=== PATIENT | male | born 1955 | race Caucasian/White ===

== ENCOUNTER 2024-01-25 14:25 | Outpatient (AMB) | payer MEDICARE, OTHER, SELFPAY ==
--- NOTE | 2024-01-25 14:41 | MHC.PC.OV ---
Vital Signs 01/25/24 14:47 Height 5 ft 11.65 in Weight 305 lb 4 oz BMI 41.8 BP 106/62 Blood Pressure Location Rt brachial Position Sitting Respiration 16 Pulse 85 Pulse Source Pulse Oximeter Temp 98.3 F Temp Source Oral Pulse Oximetry (%) 90 L Oxygen Delivery Method Room Air Intake Visit Reasons: ERF, needs referral Intake Note: New patient vist, ER follow up, Referal to neurologist if recommended. Tested positive for lyme last week. Ran out of metformin end of September. [employer] Required: No Allergies No Known Allergies Allergy (Verified 01/25/24 14:42) Medication List - Last Reconciled 01/25/24 by Shahana Rosado PA-C atorvastatin 40 mg PO DAILY doxycycline hyclate 100 mg PO BID lisinopril 10 mg PO DAILY Tobacco use date assessed: 01/25/24 Fall risk assessment: No Falls in past year Last assessed Fall Risk: 01/25/24 Dental Screening Dental Screen Date: 01/25/24 Did you have a dental visit in the last 12 months?: No Did you have a dental problem in the last 6 months where you did not have access to dental care?: No Was dental information given to patient?: Patient declined (has false teeth) HPI ERF, needs referral HPI Details Patient is a 68-year-old male who presents today to reestablish care and for an ER follow up. He was last seen by myself at [facility] in July. He has a significant past medical history of KATHIA on CPAP, left renal cell carcinoma, hypertension, hyperlipidemia and type 2 diabetes. He was recently in the ER on 01/17 with joint pains, numbness and tingling in a new diagnosis of Lyme disease. -he states that he went to the ER because he had an exacerbation of his chronic back pain, right ankle and foot swelling, numbness and tingling. He was noted to have a right foot drop and they did do x-rays and an ultrasound which were negative. He states that he was called on Tuesday and told that he had Lyme disease. He was given 14 days of doxycycline. He has been taking this and does feel like the swelling has gotten better along with some of the numbness and tingling. He still does have some numbness. He states it feels more like he has pins and needles in like the sensation might be coming back. No fevers or chills. No rashes. At the ER they told him his neuropathy symptoms could be related to his back or could be related to diabetes. Musculoskeletal: He has been following with the marketing assistant retail division and trying PT for his back but the pain keeps getting worse. He states that he is worsening despite treatment and called his marketing assistant retail division who told him to continue with physical therapy. He has not sure if he was getting worse because of the Lyme disease or because there something else that is wrong with his back. He gets pain radiating down both legs with increased discomfort in the right leg. It is worsened by sitting, walking and standing for a long time. He takes naproxen if needed. The pain at night does seem to keep him up. No bowel or bladder dysfunction. Endo: Overdue for an A1c. His last A1c was 6.6 and he was on metformin 500 mg daily. He was diagnosed earlier this year. He is out of testing strips. He states that no one at [facility] would refill his medications. He denies any polyuria or polydipsia. When he was checking his glucose without the metformin for the last couple of months it seems that his blood sugars were around 180. He is on an SONIA inhibitor. CV: Follows regularly with cardiology for his hypertension. His blood pressure today in the office is 106/62. States that she wants him to lose weight. At our last visit we did discuss trying Ozempic or Mounjaro. He states that the prior Auth was never done for this medication. Heme-Onc: Follows with Dr. Ware from [facility]. He did have a CT of abdomen and pelvis in May which did not show any evidence of metastatic disease. He does have a partial left nephrectomy as expected. He was also noted to have renal cysts. Last year he had a thyroid nodule which was noted on CT of the ultrasound did show that the thyroid nodule did not require any additional follow up. Colonoscopy: Up-to-date, 2022 [facility] Medical History (Updated 01/26/24 @ 09:01 by Shahana Rosado PA-C) Thyroid nodule Severe obesity Right inguinal hernia Newly diagnosed diabetes Multiple nodules of lung History of malignant neoplasm History of malignant neoplasm of kidney Former smoker Change in bowel habit KATHIA on CPAP Type 2 diabetes, controlled, with neuropathy Dyslipidemia HTN (hypertension) Surgical History (Updated 01/25/24 @ 15:40 by Marie Robles CMA) Hx of hernia repair H/O colonoscopy Social History (Updated 01/25/24 @ 14:46 by Marie Robles CMA) Housing: House Patient Tobacco Use Status: Former Tobacco user Cigarette Packs Per Day: 2 Years Smoked: 40 e-Cigarette/Vaping Use: Never Used service: Yes Current occupational status: retired Cognitive needs: No Hearing needs: Yes (partial hearing loss, tinnitus) Vision needs: No Questionnaire PHQ-9 Over the last 2 weeks, how often have you been bothered by any of the following problems? 1. Little interest or pleasure in doing things: not at all 2. Feeling down, depressed, or hopeless: not at all 3. Trouble falling or staying asleep, or sleeping too much: not at all 4. Feeling tired or having little energy: not at all 5. Poor appetite or overeating: not at all 6. Feeling bad about yourself - or that you are a failure or have let yourself or your family down: not at all 7. Trouble concentrating on things, such as reading the newspaper or watching television: not at all 8. Moving or speaking so slowly that other people could have noticed. Or the opposite - being so fidgety or restless that you have been moving around a lot more than usual: not at all 9. Thoughts that you would be better off or of hurting yourself in some way: not at all Total score: 0 Depression Screening Interpretation: Negative Depression Screening Done: Yes 81437 - PHQ-9 Billing: Yes Source: Developed by Drs. Garrett Marino, Tayla Gallegos, Kirt Rodrigues and colleagues, with an educational diana from [employer]. Thrive Questionnaire Date Thrive assessed: 01/25/24 I am a: Patient What is your living situation today?: I have a steady place to live Within the past 12 months, did the food you bought not last and you didn't have the money to get more?: Never true Within the past 12 months, did you worry whether your food would run out before you got money to buy more?: Never true Do you have trouble paying for medicines?: No Do you have trouble getting transportation to medical appointments?: No Do you have trouble paying your heating and electricity bill?: No Do you have trouble taking care of your child, family member or friend?: No Do you have trouble with day-to-day activities such as bathing, preparing meals, shopping, managing finances, etc.?: No Are you currently unemployed and looking for a job?: No Are you interested in more education?: No Please select the resources that you would like help with: None Currently or been in a relationship where the following occur: No concerns reported THRIVE Score: 0 AUDIT C Alcohol Use Questionnaire (AUDIT-C) 1. How often do you have a drink containing alcohol?: Monthly or less 2. How many drinks containing alcohol do you have on a typical day when you are drinking?: 1 or 2 3. How often do you have six or more drinks on one occasion?: Never Total Score: 1 Score Reviewed/Action Taken: Yes LAYTON-7 AMB Questionnaire LAYTON-7 Date LAYTON - 7 assessed: 01/25/24 Feeling nervous, anxious, or on edge: 0 = Not at all Not being able to stop or control worryin = Not at all Worrying too much about different things: 0 = Not at all Trouble relaxin = Not at all Being so restless that it is hard to sit still: 0 = Not at all Becoming easily annoyed or irritable: 0 = Not at all Feeling afraid as if something awful might happen: 0 = Not at all Total LAYTON-7 score (0-4 normal; 5-9 mild; 10-14 moderate; 15-21 severe): 0 Source: Developed by Drs. Garrett Marino, Tayla Gallegos, Kirt Rodrigues and colleagues, with an educational diana from [employer]. LAYTON-7 Assessment Billing LAYTON-7 Assessment Tool: LAYTON-7 Assessment 81626 Physical exam (Primary Care) Vital Signs: Last Vital Signs Temp 98.3 F 01/25/24 14:47 Pulse 85 01/25/24 14:47 Resp 16 01/25/24 14:47 BP 106/62 01/25/24 14:47 Pulse Ox 90 L 01/25/24 14:47 Oxygen Delivery Method Room Air 01/25/24 14:47 BMI result Body Mass Index 41.8 Tobacco/Smoking Status: Tobacco use Status Tobacco use date assessed 01/25/24 01/25/24 14:46 Patient Tobacco Use Status Former Tobacco user 01/25/24 14:46 e-Cigarette/Vaping Use Never Used 01/25/24 14:46 PHQ-9: PHQ-9 Score PHQ-9: Total score 0 01/25/24 15:43 Depression Screening Interpretation: Negative Thrive Assessment: Date of Thrive Assessment Date Thrive assessed 01/25/24 01/25/24 15:43 Currently or been in a relationship where the following occur: No concerns reported Const Orientation/consciousness: patient oriented x3 HENMT Ears: hearing grossly normal bilaterally and TM's normal bilaterally Neck Neck: Yes no lymphadenopathy Thyroid: Thyroid normal Carotids: no bruits Resp Auscultation: clear to auscultation bilaterally Cardio Rate: regular rate Rhythm: regular rhythm Heart sounds: S1 normal heart sound present and S2 normal heart sound present Peripheral pulses: dorsalis pedis present Back/Spine/Pelvis Thoracic/Lumbar Spine: pain with thoraco-lumbar ROM and paraspinal muscle tenderness Skin General skin exam: no rashes or lesions noted Neuro Other: DTRs on left WNL, absent patellar reflex on right, absent ankle reflex on right, absent vibratory sensation bilaterally to the feet. Diminished monofilament sensation bilaterally. Strength of the right lower extremity when compared to the left is 4/5. 5/5 on the left. Right foot drop noted. DP pulses 1+ bilaterally although some limitation to exam given some soft tissue swelling bilaterally. General: patient oriented x3, gait normal, no focal motor deficits and CN's II-XI intact bilaterally Extrem General: Yes normal to inspection Assessment and Plan Assessment & Plan (1) HTN (hypertension): Code(s): I10 - Essential (primary) hypertension Qualifiers: Hypertension type: primary hypertension Qualified Code(s): I10 - Essential (primary) hypertension Plan: Continue lisinopril. Medication refilled today. (2) Dyslipidemia: Code(s): E78.5 - Hyperlipidemia, unspecified Plan: On atorvastatin 40 mg. We will recheck lipids and LFTs. (3) Type 2 diabetes, controlled, with neuropathy: Code(s): E11.40 - Type 2 diabetes mellitus with diabetic neuropathy, unspecified Plan: Overdue for diabetic labs. Ordered today. We will restart metformin. Testing supplies ordered. We will start patient on Ozempic. He will let me know if there is any issues getting this. We discussed risks, benefits and adverse effects of this medication at length including increased risk of nausea, vomiting, pancreatitis, thyroid malignancy. (4) Lyme disease: Code(s): A69.20 - Lyme disease, unspecified Plan: We will extend treatment for 28 days. He was provided 14 days from the ER. (5) Right foot drop: Code(s): M21.371 - Foot drop, right foot Plan: Reports some improvement of his symptoms. We will monitor and have short term follow up. (6) Lumbar pain with radiation down both legs: Code(s): M54.50 - Low back pain, unspecified; M79.604 - Pain in right leg; M79.605 - Pain in left leg Plan: MRI ordered. We will start patient on a prednisone taper and gabapentin. Discussed risks and benefits and adverse effects of this medication at length. He has not yet tried a steroid but has follow with PT and has gradually worsened and now has neurological changes although likely related to the Lyme disease. (7) Severe obesity: Code(s): E66.01 - Morbid (severe) obesity due to excess calories Plan: We will start Ozempic. Orders: Orders Complete Blood Count Auto Diff 01/25/24 A69.20 - Lyme disease, unspecified, E11.40 - Type 2 diabetes mellitus with diabetic neuropathy, unspecified, E78.5 - Hyperlipidemia, unspecified, G47.33 - Obstructive sleep apnea (adult) (pediatric), I10 - Essential (primary) hypertension, M21.371 - Foot drop, right foot TSH reflex Free T4 01/25/24 E11.40 - Type 2 diabetes mellitus with diabetic neuropathy, unspecified, E78.5 - Hyperlipidemia, unspecified, I10 - Essential (primary) hypertension Microalbumin, Random (w Creat) 01/25/24 E11.40 - Type 2 diabetes mellitus with diabetic neuropathy, unspecified, E78.5 - Hyperlipidemia, unspecified, I10 - Essential (primary) hypertension MR lumbar spine wo con 01/25/24 E11.40 - Type 2 diabetes mellitus with diabetic neuropathy, unspecified, E78.5 - Hyperlipidemia, unspecified, I10 - Essential (primary) hypertension, M54.50 - Low back pain, unspecified, M79.604 - Pain in right leg, M79.605 - Pain in left leg Comprehensive [place]. Panel Fast 01/25/24 A69.20 - Lyme disease, unspecified, E11.40 - Type 2 diabetes mellitus with diabetic neuropathy, unspecified, E78.5 - Hyperlipidemia, unspecified, I10 - Essential (primary) hypertension, M21.371 - Foot drop, right foot Lipid Panel 01/25/24 E11.40 - Type 2 diabetes mellitus with diabetic neuropathy, unspecified, E78.5 - Hyperlipidemia, unspecified, I10 - Essential (primary) hypertension Hemoglobin A1c 01/25/24 E11.40 - Type 2 diabetes mellitus with diabetic neuropathy, unspecified, E78.5 - Hyperlipidemia, unspecified, I10 - Essential (primary) hypertension Vitamin B12 and Folate 01/25/24 E11.40 - Type 2 diabetes mellitus with diabetic neuropathy, unspecified, E78.5 - Hyperlipidemia, unspecified, I10 - Essential (primary) hypertension Medications: New prednisone take 3 tab po x 3 days, take 2 tab po x 3 days, take 1 tab po x 3 days; 18 tabs 0RF lancets (FreeStyle Lancets) Use daily As directed to check blood sugar 100 ea 3RF E11.65 - Type 2 diabetes mellitus with hyperglycemia, Z79.4 - termite treater helper (current) use of insulin doxycycline hyclate for a total of 21 days 100 mg PO BID 7 days 14 caps 0RF doxycycline hyclate to combine with the other rxs of doxy for a total of 28 days 100 mg PO BID 7 days 14 caps 0RF semaglutide (Ozempic) for 4 weeks 0.25 mg (0.368 mL) subcut QWEEK 3 mL 3RF blood sugar diagnostic (FreeStyle Lite Strips) use daily As directed to check blood sugars for diabetes 100 ea 3RF E11.65 - Type 2 diabetes mellitus with hyperglycemia metformin ER 500 mg PO DAILY 90 tabs 3RF gabapentin 300 mg PO BEDTIME 90 caps 1RF Coding Level of Care Code Est Pt Level 5 (51714) Complex EM visit Add On G2211 Diagnoses Primary hypertension I10 Hypertension type: primary hypertension Dyslipidemia E78.5 Type 2 diabetes, controlled, with neuropathy E11.40 Lyme disease A69.20 Right foot drop M21.371 Lumbar pain with radiation down both legs M54.50; M79.604; M79.605 Severe obesity E66.01 Additional Codes LAYTON-7 Assessment Billing - LAYTON-7 Assessment Tool: LAYTON-7 Assessment 33131 ([id number]) Time Spent (min) 85
[2024-01-25 14:47] VITALS: BP 106/62; PULSE 85; RESP 16; TEMP 36.8; O2SAT 90; BMI 41.8
== END 2024-01-25 15:41 | disposition home or self-care (01) ==
PROVIDERS: PCP Physician Assistant; Visit Provider Physician Assistant
DX: I10 Essential (primary) hypertension (principal); E11.40 Type 2 diabetes mellitus with diabetic neuropathy, unspecified; E66.01 Morbid (severe) obesity due to excess calories; Z68.41 Body mass index [BMI] 40.0-44.9, adult; E78.5 Hyperlipidemia, unspecified; M21.371 Foot drop, right foot; A69.20 Lyme disease, unspecified; M54.50 Low back pain, unspecified; M79.604 Pain in right leg; M79.605 Pain in left leg
CPT/HCPCS: 99215; G2211

== ENCOUNTER 2024-02-14 08:26 | Outpatient (REF) | payer MEDICARE, OTHER, SELFPAY ==
[2024-02-14 11:32] LABS: Basophils Percent Auto 0.4 % (0-2); Eosinophils Absolute Auto 0.1 X10*3/uL (0.0-0.4); Eosinophils Percent Auto 1.3 % (0-4); Hematocrit 39.7 % (42.0-52.0); Hemoglobin 13.6 g/dl (14.0-18.0); Imm Gran Abs Auto 0.02 X10*3/uL (0.00-0.03); Imm Gran Pct Auto 0.3 % (0.0-0.4); Lymphocytes Absolute Auto 1.4 X10*3/uL (1.2-4.9); Lymphocytes Percent Auto 19.4 % (20-40); MANUAL DIFF FLAG SCAN; Mean Corpuscular HGB Conc 34.3 g/dl (31.0-36.0); Mean Corpuscular Hemoglobin 30.8 pg (27.0-33.0); Monocytes Absolute Auto 0.7 X10*3/uL (0.1-1.2); Monocytes Percent Auto 10.1 % (2-11); Neutrophils Absolute Auto 4.9 x10*3/uL (2.0-8.3); Neutrophils Percent Auto 68.5 % (45-73); PLT CLUMP 1; Red Blood Count 4.41 X10*6/uL (4.60-5.80); Red Cell Distribution Width 13.7 % (11.0-16.0); SCAN SMEAR FLAG 1
[2024-02-14 11:42] LABS: Estimated Average Glucose 134 mg/dL; Hemoglobin A1c % 6.3 % (<6.0)
[2024-02-14 11:46] LABS: Alanine Aminotransferase 33 U/L (0-40); Albumin Level 4.1 g/dL (3.5-5.0); Alkaline Phosphatase 57 U/L (39-117); Anion Gap 12 (12-20); Aspartate Amino Transferase 22 U/L (5-37); Bilirubin Total 0.6 mg/dL (0.0-1.0); Blood Urea Nitrogen 17 mg/dL (9-16); Calcium 9.9 mg/dL (8.4-10.2); Carbon Dioxide 25 mmol/L (22-29); Chloride 103 mmol/L (96-108); Cholesterol 150 mg/dL (<200); Estimated Glomerular Filt Rate > 60; Glucose Fasting 114 mg/dL (60-99); HDL Cholesterol 30 mg/dL (>40); LDL Cholesterol Calculated 93 mg/dL (<100); Potassium 4.2 mmol/L (3.3-5.1); Sodium 136 mmol/L (135-145); Total Protein 7.2 g/dL (6.5-8.0); Triglycerides 139 mg/dL (<150)
[2024-02-14 12:01] LABS: Platelet Count 140 X10*3/uL (160-400); TSH reflex Free T4 2.07 uIU/mL (0.32-4.0); White Blood Count 7.2 X10*3/uL (4.8-10.8)
[2024-02-14 12:02] LABS: Mean Platelet Volume 11.4 fL (9.4-12.4); SLIDE REVIEW VERIFIED
[2024-02-14 12:02] LABS: Microalbum/Creatinine Ratio Ur 6.3 ug/mg cr (<30)
[2024-02-14 12:14] LABS: Folate 8.9 ng/mL (> or = 4.0); Vitamin B12 294 pg/mL (200-900)
== END 2024-02-14 08:27 | disposition home or self-care (01) ==
LOC: HO.WFDLDS 08:26
PROVIDERS: Visit Provider Physician Assistant
DX: I10 Essential (primary) hypertension (principal); E78.5 Hyperlipidemia, unspecified; E11.40 Type 2 diabetes mellitus with diabetic neuropathy, unspecified; A69.20 Lyme disease, unspecified; M21.371 Foot drop, right foot; G47.33 Obstructive sleep apnea (adult) (pediatric)
CPT/HCPCS: 36415; 80053; 80061; 82043; 82570; 82607; 82746; 83036; 84443; 85025

== ENCOUNTER 2024-02-22 08:26 | Outpatient (AMB) | payer MEDICARE, OTHER, SELFPAY ==
--- NOTE | 2024-02-22 08:41 | MHC.PC.OV ---
Vital Signs 02/22/24 08:47 Height 5 ft 11.65 in Weight 302 lb 6 oz BMI 41.4 BP 116/74 Blood Pressure Location Lt brachial Position Sitting Pulse 74 Pulse Source Pulse Oximeter Pulse Oximetry (%) 94 Oxygen Delivery Method Room Air Intake Visit Reasons: med check Intake Note: Follow up Allergies No Known Allergies Allergy (Verified 02/22/24 08:43) Medication List - Last Reconciled 02/22/24 by Shahana Rosado PA-C apixaban (Eliquis) 10 mg PO BID atorvastatin 40 mg PO DAILY blood sugar diagnostic (FreeStyle Lite Strips) use daily As directed to check blood sugars for diabetes cyanocobalamin (vitamin B-12) 1,000 mcg PO DAILY gabapentin 300 mg PO BEDTIME lancets (FreeStyle Lancets) Use daily As directed to check blood sugar lisinopril 10 mg PO DAILY metformin ER 500 mg PO DAILY Tobacco use date assessed: 01/25/24 Dental Screening Dental Screen Date: 01/25/24 HPI med check HPI Details Patient is a 68-year-old male who presents today for a follow up. Since our last visit he was hospitalized again at [facility] on 02/17/24 and discharged on 02/18/2024. On 02/16 he presented to the ER with complaints of right lower leg pain, redness and swelling. He was then diagnosed with a DVT. Impression of ultrasound: Long segment nonocclusive right popliteal and occlusive right peroneal thrombus extending from the knee to the ankle. He was started on Lovenox and discharged on Eliquis. He was admitted for observation. They did do a CT of the abdomen and pelvis which was negative for any reoccurrence of malignancy. He does have a history of a renal cell cancer and is s/p partial nephrectomy. He does have follow up with Dr. Ware and is due to see her in April. It was felt to be an unprovoked DVT however patient was very immobile the last few months due to Lyme disease, ongoing back pain and significant right peripheral neuropathy. Musculoskeletal: MRI is scheduled for next week of the back. Did see his back specialist after our last visit who also recommended an MRI at that point as he did worsen with physical therapy. His CT of the abdomen and pelvis from the hospital does show moderate to severe degenerative changes in the lumbar spine. CV: Blood pressure today in the office is 116/74. He is currently on lisinopril 10 mg. Cholesterol still managed with atorvastatin 40 mg. Endo: They do not want him checking his blood sugars as frequently because of the blood thinner. He would like to get a CGM as he also has peripheral neuropathy related to the diabetes. Last A1c was 6.3. The Ozempic is helping curb his appetite. He is on this and metformin 500 mg daily. Does not tolerate higher doses. [facility] Medical History (Updated 02/22/24 @ 13:44 by Shahana Rosado PA-C) Thyroid nodule Severe obesity Right inguinal hernia Newly diagnosed diabetes Multiple nodules of lung History of malignant neoplasm History of malignant neoplasm of kidney Former smoker Change in bowel habit KATHIA on CPAP Type 2 diabetes, controlled, with neuropathy Dyslipidemia HTN (hypertension) Surgical History (Updated 01/25/24 @ 15:40 by Marie Robles CMA) Hx of hernia repair H/O colonoscopy Social History (Updated 01/25/24 @ 14:46 by Marie Robles CMA) Housing: House Patient Tobacco Use Status: Former Tobacco user Cigarette Packs Per Day: 2 Years Smoked: 40 e-Cigarette/Vaping Use: Never Used service: Yes Current occupational status: retired Cognitive needs: No Hearing needs: Yes (partial hearing loss, tinnitus) Vision needs: No Questionnaire PHQ-9 Over the last 2 weeks, how often have you been bothered by any of the following problems? Depression Screening Interpretation: Negative Depression Screening Done: Yes Source: Developed by Drs. Garrett Marino, Kirt Alvarez and colleagues, with an educational diana from [employer]. Thrive Questionnaire Date Thrive assessed: 01/25/24 Currently or been in a relationship where the following occur: No concerns reported THRIVE Score: 0 LAYTON-7 AMB Questionnaire LAYTON-7 Date LAYTON - 7 assessed: 01/25/24 Source: Developed by Drs. Garrett Marino, Tayla Gallegos, Kirt Rodrigues and colleagues, with an educational diana from [employer]. Physical exam (Primary Care) Vital Signs: Last Vital Signs Pulse 74 02/22/24 08:47 BP 116/74 02/22/24 08:47 Pulse Ox 94 02/22/24 08:47 Oxygen Delivery Method Room Air 02/22/24 08:47 BMI result Body Mass Index 41.4 Tobacco/Smoking Status: Tobacco use Status Tobacco use date assessed 01/25/24 02/22/24 08:43 Patient Tobacco Use Status Former Tobacco user 02/22/24 08:43 e-Cigarette/Vaping Use Never Used 02/22/24 08:43 Depression Screening Interpretation: Negative Thrive Assessment: Date of Thrive Assessment Date Thrive assessed 01/25/24 02/22/24 08:43 Currently or been in a relationship where the following occur: No concerns reported Const Orientation/consciousness: patient oriented x3 HENMT Ears: hearing grossly normal bilaterally and TM's normal bilaterally Neck Neck: Yes no lymphadenopathy Thyroid: Thyroid normal Carotids: no bruits Resp Auscultation: clear to auscultation bilaterally Cardio Rate: regular rate Rhythm: regular rhythm Heart sounds: S1 normal heart sound present and S2 normal heart sound present Peripheral pulses: dorsalis pedis present Back/Spine/Pelvis Thoracic/Lumbar Spine: pain with thoraco-lumbar ROM and paraspinal muscle tenderness Skin General skin exam: no rashes or lesions noted Neuro Other: DTRs on left WNL, absent patellar reflex on right, absent ankle reflex on right, absent vibratory sensation bilaterally to the feet. Diminished monofilament sensation bilaterally. Strength of the right lower extremity when compared to the left is 4/5. 5/5 on the left. Right foot drop noted. DP pulses 1+ bilaterally although some limitation to exam given some soft tissue swelling bilaterally. General: patient oriented x3, gait normal, no focal motor deficits and CN's II-XI intact bilaterally Extrem General: Yes normal to inspection Results Reviewed Results Reviewed: Laboratory Tests 02/14/24 08:31 Creatinine 1.01 Estimated GFR > 60 Hemoglobin A1c % 6.3 H AST 22 ALT 33 Alkaline Phosphatase 57 Triglycerides 139 Cholesterol 150 LDL Cholesterol, Calc 93 HDL Cholesterol 30 L Assessment and Plan Assessment & Plan (1) Hospital discharge follow-up: Code(s): Z09 - Encounter for follow-up examination after completed treatment for conditions other than malignant neoplasm Plan: Medications reconciled. Labs and imaging reviewed from hospital. Notes reviewed. (2) Right leg DVT: Code(s): I82.401 - Acute embolism and thrombosis of unspecified deep veins of right lower extremity Qualifiers: Chronicity: acute Plan: Patient is still experiencing some significant discomfort in the right lower leg. We reviewed the extensive his DVT which is long segment nonocclusive right popliteal and occlusive right peroneal thrombus extending from the knee to ankle. Referral to vascular surgery. Continue with anticoagulation. (3) Type 2 diabetes, controlled, with neuropathy: Code(s): E11.40 - Type 2 diabetes mellitus with diabetic neuropathy, unspecified Plan: cgm ordered increased ozempic as he is tolerating 0.25mg weekly continue metformin (4) Chronic anticoagulation: Code(s): Z79.01 - penitentiary (current) use of anticoagulants Plan: continue and f/u with oncology (5) HTN (hypertension): Code(s): I10 - Essential (primary) hypertension Qualifiers: Hypertension type: primary hypertension Qualified Code(s): I10 - Essential (primary) hypertension Plan: wnl (6) Anemia: Code(s): D64.9 - Anemia, unspecified Plan: did not start b12 yet. will start and recheck labs (7) Lumbar pain with radiation down both legs: Code(s): M54.50 - Low back pain, unspecified; M79.604 - Pain in right leg; M79.605 - Pain in left leg Plan: mri booked next week has follow up with back specialists. Orders: Orders Complete Blood Count Auto Diff Today D64.9 - Anemia, unspecified, I10 - Essential (primary) hypertension, Z79.01 - terminal worker (current) use of anticoagulants Vitamin B12 and Folate Today D64.9 - Anemia, unspecified, I10 - Essential (primary) hypertension, Z79.01 - penitentiary (current) use of anticoagulants Comprehensive [place]. Panel Fast Today D64.9 - Anemia, unspecified, I10 - Essential (primary) hypertension, Z79.01 - penitentiary (current) use of anticoagulants XR lumbar spine 2-3V Today M54.50 - Low back pain, unspecified, M79.604 - Pain in right leg, M79.605 - Pain in left leg Ferritin Today D64.9 - Anemia, unspecified, I10 - Essential (primary) hypertension, Z79.01 - penitentiary (current) use of anticoagulants IRON PROFILE Today D64.9 - Anemia, unspecified, I10 - Essential (primary) hypertension, Z79.01 - penitentiary (current) use of anticoagulants Referrals Vascular Surgery Referral I82.401 - Acute embolism and thrombosis of unspecified deep veins of right lower extremity Medications: New blood-glucose sensor (FreeStyle Kathleen 3 Sensor device) use daily As directed to monitor type 2 diabetes. changed q 14 days 2 ea 11RF E11.21 - Type 2 diabetes mellitus with diabetic nephropathy, E11.40 - Type 2 diabetes mellitus with diabetic neuropathy, unspecified, Z79.01 - penitentiary (current) use of anticoagulants semaglutide (Ozempic) 0.5 mg (0.736 mL) subcut QWEEK 3 mL 3RF blood-glucose meter,continuous (FreeStyle Kathleen 3 [place]) Use daily As directed to monitor type 2 diabetes 1 ea 0RF E11.40 - Type 2 diabetes mellitus with diabetic neuropathy, unspecified, Z79.01 - terminal worker (current) use of anticoagulants Changed From gabapentin 300 mg PO BEDTIME 90 caps 1RF To gabapentin 300 mg PO TID 30 days 90 caps 1RF Coding Level of Care Code TCM Mod MDM <= 7 Days Complex EM visit Add On G2211 Diagnoses Hospital discharge follow-up Z09 Right leg DVT I82.401 Chronicity: acute Type 2 diabetes, controlled, with neuropathy E11.40 Chronic anticoagulation Z79.01 Primary hypertension I10 Hypertension type: primary hypertension Anemia D64.9 Lumbar pain with radiation down both legs M54.50; M79.604; M79.605
[2024-02-22 08:47] VITALS: BP 116/74; PULSE 74; O2SAT 94; BMI 41.4
== END 2024-02-22 09:40 | disposition home or self-care (01) ==
PROVIDERS: PCP Physician Assistant; Visit Provider Physician Assistant
DX: I82.401 Acute embolism and thrombosis of unspecified deep veins of right lower extremity (principal); E11.40 Type 2 diabetes mellitus with diabetic neuropathy, unspecified; Z09 Encounter for follow-up examination after completed treatment for conditions other than malignant neoplasm; Z79.01 Long term (current) use of anticoagulants; I10 Essential (primary) hypertension; D64.9 Anemia, unspecified; M54.50 Low back pain, unspecified; M79.604 Pain in right leg; M79.605 Pain in left leg
CPT/HCPCS: 99214; G2211

== ENCOUNTER 2024-02-28 15:54 | Outpatient (REF) | payer MEDICARE, OTHER, SELFPAY ==
--- NOTE | ~2024-02-28 | XR_ITS ---
EXAMINATION: X-RAY PRE-MRI SCREENING CLINICAL INFORMATION: History of metallic exposure, pre-MRI evaluation COMPARISON: None available TECHNIQUE: Two Water's views and a lateral view x-rays of the orbits FINDINGS: Two Water's views and a lateral view x-rays of the orbits show intact bony borders. No radiopaque foreign bodies were found. Metallic ring associated with distention is seen in the upper jaw. XR/XR pre mri screening IMPRESSION: 1. Metallic ring associated with distention of the upper jaw. 2. No radiopaque foreign bodies were found. Electronically signed by: Nata Thomas MD 02/29/2024 08:17 AM EDT
--- NOTE | ~2024-02-28 | MR_ITS ---
EXAMINATION: MR LUMBAR SPINE WITHOUT CONTRAST CLINICAL INFORMATION: Pain in right leg COMPARISON: None available. TECHNIQUE: MRI of the lumbar spine was obtained using routine sequences without contrast. FINDINGS: There are 5 nonrib-bearing lumbar type vertebrae. Mild to moderate levocurvature of the lumbar spine. Mild retrolisthesis at L5-S1. Diffusely heterogeneous bone marrow signal is likely degenerative. The vertebral body heights are preserved. Multilevel disc desiccation and disc height loss, worse and severe at L2-3. Multilevel mixed type I and type II endplate changes throughout the lumbar spine. Multilevel anterior osteophytosis. The visualized spinal cord is normal in caliber. No abnormal cord signal. The conus medullaris terminates at L1-2. T10-11: Diffuse disc bulge with superimposed annular fissure. Ligamentum flavum hypertrophy. No significant spinal canal stenosis. Mild left neural foraminal narrowing. T11-12: Diffuse disc bulge. No significant spinal canal or neural foraminal narrowing. T12-L1: Diffuse disc bulge with superimposed acute left subarticular/foraminal disc extrusion. Severe stenosis of the left lateral recess. Mass effect on the thecal sac resulting in moderate left eccentric spinal canal stenosis with impingement of the left aspect of the cord. Moderate to severe right greater than left neural foraminal narrowing. L1-2: Diffuse disc bulge with superimposed right paracentral disc protrusion. Ligamentum flavum hypertrophy, prominent dorsal epidural fat and bilateral facet arthrosis. Mild spinal canal stenosis. Moderate to severe right and mild left neural foraminal narrowing. L2-3: Ligamentum flavum hypertrophy and bilateral facet arthrosis. No significant spinal canal stenosis. Moderate right and mild left neural foraminal narrowing. L3-4: Diffuse disc bulge, prominent dorsal epidural fat, ligamentum flavum hypertrophy, and bilateral facet stenosis. Severe spinal canal stenosis with impingement of the cauda equina nerve roots. Moderate to severe right and mild to moderate left neural foraminal narrowing with mass effect on the right exiting L3 nerve roots. L4-5: Diffuse disc bulge, prominent dorsal epidural fat, ligamentum flavum hypertrophy, and bilateral atelectasis. Severe spinal canal stenosis with impingement of the cauda equina nerve roots. Moderate left and mild right neural foraminal narrowing with the disc abutting the exiting L4 nerve roots bilaterally. L5-S1: Diffuse disc bulge, ligamentum flavum hypertrophy, bilateral facet atelectasis. No significant spinal canal stenosis. Moderate to severe left and mild to moderate right neural foraminal narrowing with mass effect on the left exiting L5 nerve roots. The paravertebral soft tissues are unremarkable. MR/MR lumbar spine wo con IMPRESSION: 1. Mild to moderate levocurvature of the lumbar spine with severe multilevel degenerative disc disease and epidural lipomatosis of the lumbar spine as described above. 2. At T12-L1, and acute left subarticular/foraminal disc extrusion severely narrows the left lateral recess with impingement of the left aspect of the cord and moderate to severe right greater than left neural foraminal narrowing. 3. At L3-L4 and L4-L5, there is severe spinal canal stenosis with impingement of the cauda equina nerve roots and moderate to severe right and mild to moderate left neural foraminal narrowing with mass effect on the right L3 exiting nerve root. 4. At L5-S1, there is moderate to severe left and mild to moderate right neural foraminal narrowing with mass effect on the left exiting L5 nerve roots. Electronically signed by: Jacquelyn Jordan MD 03/07/2024 10:44 AM EDT
== END 2024-02-28 15:55 | disposition home or self-care (01) ==
LOC: HO.MRI 15:54
PROVIDERS: PCP Physician Assistant; Visit Provider Physician Assistant
DX: M79.604 Pain in right leg (principal); M79.605 Pain in left leg; M54.50 Low back pain, unspecified; E11.40 Type 2 diabetes mellitus with diabetic neuropathy, unspecified
CPT/HCPCS: 72148

== ENCOUNTER 2024-03-08 08:05 | Outpatient (REF) | payer MEDICARE, OTHER, SELFPAY ==
[2024-03-08 11:06] LABS: MANUAL DIFF FLAG NO
[2024-03-08 11:19] LABS: Basophils Percent Auto 0.8 % (0-2); Eosinophils Absolute Auto 0.1 X10*3/uL (0.0-0.4); Eosinophils Percent Auto 1.8 % (0-4); Hematocrit 40.1 % (42.0-52.0); Imm Gran Abs Auto 0.01 X10*3/uL (0.00-0.03); Imm Gran Pct Auto 0.2 % (0.0-0.4); Lymphocytes Absolute Auto 1.8 X10*3/uL (1.2-4.9); Lymphocytes Percent Auto 35.2 % (20-40); Mean Corpuscular HGB Conc 32.4 g/dl (31.0-36.0); Mean Corpuscular Hemoglobin 30.2 pg (27.0-33.0); Mean Corpuscular Volume 93.3 fL (80.0-98.0); Mean Platelet Volume 11.6 fL (9.4-12.4); Monocytes Absolute Auto 0.5 X10*3/uL (0.1-1.2); Monocytes Percent Auto 10.5 % (2-11); Neutrophils Absolute Auto 2.6 x10*3/uL (2.0-8.3); Neutrophils Percent Auto 51.5 % (45-73); Platelet Count 199 X10*3/uL (160-400); Red Cell Distribution Width 13.9 % (11.0-16.0); White Blood Count 5.1 X10*3/uL (4.8-10.8)
[2024-03-08 11:55] LABS: Alanine Aminotransferase 35 U/L (0-40); Albumin Level 4.3 g/dL (3.5-5.0); Alkaline Phosphatase 56 U/L (39-117); Anion Gap 13 (12-20); Aspartate Amino Transferase 25 U/L (5-37); Bilirubin Total 0.5 mg/dL (0.0-1.0); Blood Urea Nitrogen 17 mg/dL (9-16); Calcium 9.8 mg/dL (8.4-10.2); Carbon Dioxide 27 mmol/L (22-29); Chloride 104 mmol/L (96-108); Estimated Glomerular Filt Rate > 60; Glucose Fasting 106 mg/dL (60-99); Iron 68 mcg/dL (45-160); Percent Iron Saturation 29 % (15-50); Potassium 4.6 mmol/L (3.3-5.1); Sodium 139 mmol/L (135-145); Total Iron Binding Capacity 233 mcg/dL (228-428); Total Protein 7.3 g/dL (6.5-8.0); Unsaturated Iron Binding 165 ug/dL
[2024-03-08 11:58] LABS: Ferritin 256 ng/mL (20-250)
[2024-03-08 12:25] LABS: Folate 9.6 ng/mL (> or = 4.0); Vitamin B12 485 pg/mL (200-900)
== END 2024-03-08 08:06 | disposition home or self-care (01) ==
LOC: HO.WFDLDS 08:05
PROVIDERS: Visit Provider Physician Assistant
DX: I10 Essential (primary) hypertension (principal); D64.9 Anemia, unspecified; Z79.01 Long term (current) use of anticoagulants
CPT/HCPCS: 36415; 80053; 82607; 82728; 82746; 83540; 85025

== ENCOUNTER 2024-03-16 09:48 | Outpatient (REF) | payer MEDICARE, OTHER, SELFPAY ==
--- NOTE | ~2024-03-16 | XR_ITS ---
EXAMINATION: XR LUMBAR SPINE CLINICAL INFORMATION: Idiopathic scoliosis. Back pain. COMPARISON: MRI dated 02/28/2024. TECHNIQUE: AP and lateral views of the lumbar spine were obtained. Lateral views were obtained in flexion, extension, and neutral positions. FINDINGS: Moderate left convex lumbar scoliosis centered at L2-L3. [id number] multilevel degenerative disc disease characterized by loss of vertebral disc height, endplate sclerosis, and endplate osteophytes. Mild retrolisthesis of L1 and L2 by 2 mm. No appreciable pathologic motion with flexion-extension. Marked multilevel facet arthropathy, most notably at L3-L4. Vertebral body heights are normal. No fractures. Mild osteoarthritis in the SI joints. Soft tissues are unremarkable. XR/XR lumbar spine 4V min IMPRESSION: 1. Moderate left convex lumbar scoliosis. 2. [id number] multilevel degenerative disc disease and facet arthropathy. 3. Mild retrolisthesis of L1 on L2. No pathologic motion with flexion-extension. Electronically signed by: Martell Flores MD 04/02/2024 11:49 PM EDT
== END 2024-03-16 09:49 | disposition home or self-care (01) ==
LOC: HO.XRAY 09:48
PROVIDERS: PCP Physician Assistant; Visit Provider Physician Assistant
DX: M41.20 Other idiopathic scoliosis, site unspecified (principal)
CPT/HCPCS: 72110; 99202

== ENCOUNTER 2024-03-16 09:48 | Outpatient (AMB) | payer MEDICARE, OTHER, SELFPAY ==
--- NOTE | 2024-03-16 10:06 | HO.SPINEOV ---
Intake Visit Reasons: spinal stenosis Intake Note: Mr. Poole is here today c/o low back pain, right sided foot drop and numbness on both feet. Drop Clipper Required: No Allergies No Known Allergies Allergy (Verified 03/16/24 10:07) Assessment & Plan Assessment & Plan (1) Scoliosis (and kyphoscoliosis), idiopathic: Code(s): M41.20 - Other idiopathic scoliosis, site unspecified Category: Medical Plan Dear Shahana, Thank you for referring Mr Poole to our office today. He is a 68-year-old diabetic gentleman, recently diagnosed with a right lower extremity DVT on Eliquis, who has been having back pain and various lower extremity radicular and claudicating symptoms since November of this year. He feels as though it started rather abruptly. He went to the emergency room and was sent to a pain management or physiatry type Center in [place] after that visit. While he was there he was sent to physical therapy and that did seem to fix some of the issues with his back. In the interim however he ended up getting diagnosed with a DVT and some of the back problems had to be put on the back burner while that was being addressed. He has been started on Eliquis in the calf swelling and pain seems to have come down little bit. He has however noticed that he is getting more active, that the back pain is acting up again. He also has numbness of both of his feet. There was a presumptive diagnosis of peripheral neuropathy. He also was diagnosed with a right footdrop sometime around when his back pain started. That is been stable but unfortunately has not improved. He was also diagnosed with Lyme disease somewhere along the way. This was diagnosed via a blood test but he did not have any symptoms and never had a tick on him. He does not report any bowel or bladder incontinence. He does have difficulty starting his stream and emptying his bladder completely but no cauda equina type symptoms. He takes Tylenol and gabapentin as needed for the pain but they do not seem to help. PMH: He is a diabetic, his last A1c was about 6, high cholesterol, recently diagnosed with a right lower extremity DVT, on Eliquis. That diagnosis was made about a month ago. History of renal cell carcinoma with a partial nephrectomy. He has been stable and cancer free now for the last 4 years. History of hypertension, obesity, sleep apnea, high cholesterol. Social hx: He does not smoke, drink or use any recreational drugs Medications: Atorvastatin, Eliquis, lisinopril, metformin, Ozempic and gabapentin, Peter Allergies: None Physical exam: No acute distress, he is very slow to stand, can not come to a full upright posture, he is able to get up on the examining table on his own. He has full strength of bilateral lower extremities with the exception of his right dorsiflexion which is 2 to 3/5. Absent reflexes bilaterally in the lower extremities. He has what he describes as diffuse loss of sensation to light touch throughout the lower extremities but worse on the right leg lower down near the calf. Imaging review: He has a lumbar MRI at [facility] showing diffuse degenerative disc disease and disc collapse all throughout the lower thoracic throughout the lumbar spine. At T12-L1 there appears to be a moderate to large disc herniation. There appears to be some displacement of the cord to the right, however I do not have an axial T2 image to clarify this. Unclear if there is any T2 cord signal change seen at this level. The patient has a scoliotic curvature with moderate stenosis at L2-3, severe stenosis at L3-4 and L4-5. There are varying degrees of foraminal stenosis throughout the whole lumbar spine. Impression: 68-year-old diabetic male, diagnosed a month ago with a right lower extremity DVT, on Eliquis, presents with primarily back pain with standing walking which goes away when he sits down. The symptoms have been present for about 4-5 months He has on and off numbness of his legs and did develop a footdrop about 4-5 months ago when this whole problem started. He was also recently diagnosed with Lyme disease via a blood test but never had any actual symptoms of Lyme disease. He also has overlapping diagnosis of diabetic neuropathy. His situation is somewhat complicated by the fact that he has an extensively degenerative lumbar spine with a scoliotic curvature and stenosis at multiple levels. He also appears to have what may be an acute disc herniation at T12-L1. I have limited axial imaging with which to clarify the exact amount of spinal cord compression that could be present at this spot. Thankfully has no myelopathic reflexes, however we know that in diabetes this can be suppressed. His primary symptom is back pain with standing and walking. I think we need to clarify a few things before we can discuss surgery. The 1st, is I need a thoracic MRI to understand the anatomy of the disc herniation at T12-L1 a little bit better. Specifically need an axial cut with T2 imaging. Secondly, because of his diagnosis of DVT 1 month ago, he may be high risk to come off his Eliquis for back surgery. It looks like there is a vascular referral in place so that may help us understand a little bit better as to what the risk of this may be. I would like to get a set of standing flexion-extension x-rays and review all of the imaging with Dr. Stout once the thoracic MRI is completed. With regard to his footdrop, I suspect this is coming from the L4-5 stenosis, but it could also be part of his diabetes situation in terms of a polyneuropathy. He may need an EMG to work this up for clarification. I will see him back once we have all the appropriate studies. Thank you for allowing us to care for your patient. The total time spent with this visit with this patient was 65 minutes reviewing history, physical exam, lumbar imaging review, and implementation of treatment plan or further diagnostic testing Андрей Stout MD,PhD [facility] Orders: Orders XR lumbar spine 4V min Today M41.20 - Other idiopathic scoliosis, site unspecified MR thoracic spine wo con Today M41.20 - Other idiopathic scoliosis, site unspecified Coding Level of Care Code New Pt Level 5 (89627) Diagnoses Scoliosis (and kyphoscoliosis), idiopathic M41.20
== END 2024-03-16 10:45 | disposition home or self-care (01) ==
PROVIDERS: PCP Physician Assistant; Referring Provider Physician Assistant; Visit Provider Physician Assistant
DX: M41.20 Other idiopathic scoliosis, site unspecified (principal)
CPT/HCPCS: 99205

== ENCOUNTER 2024-03-22 08:38 | Outpatient (AMB) | payer MEDICARE, OTHER, SELFPAY ==
--- NOTE | 2024-03-22 08:57 | A.OFFPC_ITS ---
Vital Signs 03/22/24 09:01 Height 5 ft 11.65 in Weight 300 lb 6 oz BMI 41.1 BP 108/58 L Blood Pressure Location Lt brachial Position Sitting Respiration 14 Pulse 70 Pulse Source Pulse Oximeter Pulse Oximetry (%) 93 Oxygen Delivery Method Room Air Intake Visit Reasons: Dvt Intake Note: Follow up Allergies No Known Allergies Allergy (Verified 03/22/24 08:58) Tobacco use date assessed: 01/25/24 Dental Screening Dental Screen Date: 01/25/24 HPI Dvt HPI Details Patient is a 68-year-old male who presents today for a follow up. He is not have any acute concerns today. He did bring in his [employer] Kathleen because he wants to try it out. Endo: We did set up his Kathleen today. I showed him how to use the reader. We applied the sensor today. He is currently on metformin 500 mg daily and semaglutide 0 point 5 mg weekly. Tolerating this well. Initially when he started it he did lose weight and wonders if he went up on the dosage if he would continue to lose weight. CV: No chest pain or shortness a breath. Blood pressure today in the office is 108/58. Compliant with lisinopril 10 mg. He is on atorvastatin 40 mg. Musculoskeletal: Back pain is stable. [facility]. He has to follow with vascular before he can be cleared to get surgery for his back. [facility] Medical History (Updated 03/16/24 @ 10:45 by CHACHA Mandel) Thyroid nodule Severe obesity Right inguinal hernia Newly diagnosed diabetes Multiple nodules of lung History of malignant neoplasm History of malignant neoplasm of kidney Former smoker Change in bowel habit KATHIA on CPAP Type 2 diabetes, controlled, with neuropathy Dyslipidemia HTN (hypertension) Surgical History (Updated 01/25/24 @ 15:40 by Marie Robles CMA) Hx of hernia repair H/O colonoscopy Social History (Updated 01/25/24 @ 14:46 by Marie Robles CMA) Housing: House Patient Tobacco Use Status: Former Tobacco user Cigarette Packs Per Day: 2 Years Smoked: 40 e-Cigarette/Vaping Use: Never Used service: Yes Current occupational status: retired Cognitive needs: No Hearing needs: Yes (partial hearing loss, tinnitus) Vision needs: No Questionnaire PHQ-9 Over the last 2 weeks, how often have you been bothered by any of the following problems? 1. Little interest or pleasure in doing things: more than half the days 2. Feeling down, depressed, or hopeless: not at all 3. Trouble falling or staying asleep, or sleeping too much: not at all 4. Feeling tired or having little energy: not at all 5. Poor appetite or overeating: not at all 6. Feeling bad about yourself - or that you are a failure or have let yourself or your family down: not at all 7. Trouble concentrating on things, such as reading the newspaper or watching television: not at all 8. Moving or speaking so slowly that other people could have noticed. Or the opposite - being so fidgety or restless that you have been moving around a lot more than usual: not at all 9. Thoughts that you would be better off or of hurting yourself in some way: not at all Total score: 2 Source: Developed by Drs. Garrett Marino, Tayla Gallegos, Kirt Rodrigues and colleagues, with an educational diana from [employer]. Thrive Questionnaire Date Thrive assessed: 03/15/24 I am a: Patient What is your living situation today?: I have a steady place to live Within the past 12 months, did the food you bought not last and you didn't have the money to get more?: Never true Within the past 12 months, did you worry whether your food would run out before you got money to buy more?: Never true Do you have trouble paying for medicines?: No Do you have trouble getting transportation to medical appointments?: No Do you have trouble paying your heating and electricity bill?: No Do you have trouble taking care of your child, family member or friend?: No Do you have trouble with day-to-day activities such as bathing, preparing meals, shopping, managing finances, etc.?: No Are you currently unemployed and looking for a job?: No Are you interested in more education?: No Please select the resources that you would like help with: None Currently or been in a relationship where the following occur: No concerns reported THRIVE Score: 0 AUDIT C Alcohol Use Questionnaire (AUDIT-C) 1. How often do you have a drink containing alcohol?: Monthly or less 2. How many drinks containing alcohol do you have on a typical day when you are drinking?: 1 or 2 3. How often do you have six or more drinks on one occasion?: Never Total Score: 1 LAYTON-7 AMB Questionnaire LAYTON-7 Date LAYTON - 7 assessed: 01/25/24 Feeling nervous, anxious, or on edge: 0 = Not at all Not being able to stop or control worryin = Not at all Worrying too much about different things: 0 = Not at all Trouble relaxin = Not at all Being so restless that it is hard to sit still: 0 = Not at all Becoming easily annoyed or irritable: 0 = Not at all Feeling afraid as if something awful might happen: 0 = Not at all Total LAYTON-7 score (0-4 normal; 5-9 mild; 10-14 moderate; 15-21 severe): 0 Source: Developed by Drs. Garrett Marino, Tayla Gallegos, Kirt Rodrigues and colleagues, with an educational diana from [employer]. Physical exam (Primary Care) Vital Signs: Last Vital Signs Pulse 70 03/22/24 09:01 Resp 14 03/22/24 09:01 BP 108/58 L 03/22/24 09:01 Pulse Ox 93 03/22/24 09:01 Oxygen Delivery Method Room Air 03/22/24 09:01 BMI result Body Mass Index 41.1 Tobacco/Smoking Status: Tobacco use Status Tobacco use date assessed 01/25/24 03/22/24 08:58 Patient Tobacco Use Status Former Tobacco user 03/22/24 08:58 e-Cigarette/Vaping Use Never Used 03/22/24 08:58 PHQ-9: PHQ-9 Score PHQ-9: Total score 2 03/22/24 08:58 Thrive Assessment: Date of Thrive Assessment Date Thrive assessed 03/15/24 03/22/24 08:58 Currently or been in a relationship where the following occur: No concerns reported HENMT Ears: hearing grossly normal bilaterally Neck Thyroid: Thyroid normal Lymphatic: no lymphadenopathy noted Resp Auscultation: clear to auscultation bilaterally Cardio Rate: regular rate Rhythm: regular rhythm Heart sounds: S1 normal heart sound present and S2 normal heart sound present Skin General skin exam: no rashes or lesions noted Assessment and Plan Assessment & Plan (1) Type 2 diabetes, controlled, with neuropathy: Code(s): E11.40 - Type 2 diabetes mellitus with diabetic neuropathy, unspecified Plan: increase ozempic. continue metformin applied cgm today reviewed how to work reader 3 month follow up or sooner prn (2) HTN (hypertension): Code(s): I10 - Essential (primary) hypertension Qualifiers: Hypertension type: primary hypertension Qualified Code(s): I10 - Essential (primary) hypertension Plan: cotninue current plan (3) Dyslipidemia: Code(s): E78.5 - Hyperlipidemia, unspecified Plan: as above (4) Lumbar pain with radiation down both legs: Code(s): M54.50 - Low back pain, unspecified; M79.604 - Pain in right leg; M79.605 - Pain in left leg Plan: has follow up arranged Orders: Orders Hemoglobin A1c Today E78.5 - Hyperlipidemia, unspecified, I10 - Essential (primary) hypertension, M54.50 - Low back pain, unspecified, M79.604 - Pain in right leg, M79.605 - Pain in left leg Comprehensive [place]. Panel Fast Today E78.5 - Hyperlipidemia, unspecified, I10 - Essential (primary) hypertension, M54.50 - Low back pain, unspecified, M79.604 - Pain in right leg, M79.605 - Pain in left leg Medications: New semaglutide (Ozempic) 1 mg (0.75 mL) subcut QWEEK 3 mL 1RF Discontinued semaglutide (Ozempic) Discontinued Reason: Doctor's Order 0.5 mg (0.736 mL) subcut QWEEK 3 mL 3RF Coding Level of Care Code Est Pt Level 4 (95739) Complex EM visit Add On G2211 Diagnoses Type 2 diabetes, controlled, with neuropathy E11.40 Primary hypertension I10 Hypertension type: primary hypertension Dyslipidemia E78.5 Lumbar pain with radiation down both legs M54.50; M79.604; M79.605
[2024-03-22 09:01] VITALS: BP 108/58; PULSE 70; RESP 14; O2SAT 93; BMI 41.1
== END 2024-03-22 11:38 | disposition home or self-care (01) ==
PROVIDERS: PCP Physician Assistant; Visit Provider Physician Assistant
DX: E11.40 Type 2 diabetes mellitus with diabetic neuropathy, unspecified (principal); I10 Essential (primary) hypertension; E78.5 Hyperlipidemia, unspecified; M54.50 Low back pain, unspecified; M79.604 Pain in right leg; M79.605 Pain in left leg
CPT/HCPCS: 99214; G2211

== ENCOUNTER 2024-04-01 19:50 | Outpatient (REF) | payer MEDICARE, OTHER, SELFPAY ==
--- NOTE | ~2024-04-01 | MR_ITS ---
EXAMINATION: MR THORACIC SPINE WITHOUT CONTRAST CLINICAL INFORMATION: Idiopathic scoliosis. COMPARISON: Lumbar spine MRI from 02/28/2024. TECHNIQUE: MRI of the thoracic spine was obtained using routine sequences without contrast. FINDINGS: Mild right convex curvature of the thoracic spine. Moderate left convex curvature of the lumbar spine. Moderate degenerative disc disease from C3-T7 and T10-L1. Mild degenerative disc disease at all additional levels. Associated mixed Modic type discogenic endplate changes including Modic type I discogenic edema at all levels (moderate Modic type I discogenic edema at T12-L1). No additional suspicious marrow edema. The vertebral body heights are largely maintained. No demonstrated thoracic spinal cord signal abnormalities. No significant abnormalities of the paraspinal musculature. Nonspecific 1.6 cm lesion in the posterior aspect of the right lower lobe. Moderate atrophy of a rotated left kidney. Otherwise, limited evaluation of the intrathoracic structures without significant abnormalities. The descending thoracic aorta is of normal contour and caliber. AXIAL SPINAL LEVELS: Moderate multilevel posterior disc herniations from T2-T6 and T7-L1. Redemonstrated left subarticular disc extrusion with superior migration at T12-L1. There is moderate multilevel facet joint arthropathy in the lower thoracic spine. Mild multilevel facet joint arthropathy in the upper-mid thoracic spine. There are moderate neural foraminal stenoses at T10-T11. Moderate to severe neural foraminal stenoses at T12-L1. There is moderate spinal canal stenosis at T12-L1. No additional spinal canal stenosis. 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 Most notably, there is AV demonstrated disc extrusion at T12-L1 leading to moderate spinal canal stenosis. Moderate to severe neural foraminal stenoses at T10-T11 and T12-L1. Nonspecific 1.6 cm lesion in the posterior aspect of the right lower lobe. If not previously evaluated, this may be further characterized with dedicated chest CT. Electronically signed by: Jovany Morel DO 04/05/2024 05:01 PM EDT
== END 2024-04-01 19:51 | disposition home or self-care (01) ==
LOC: HO.MRI 19:50
PROVIDERS: PCP Physician Assistant; Visit Provider Physician Assistant
DX: M41.20 Other idiopathic scoliosis, site unspecified (principal)
CPT/HCPCS: 72146

== ENCOUNTER 2024-04-06 13:35 | Outpatient (AMB) | payer MEDICARE, OTHER, SELFPAY ==
--- NOTE | 2024-04-06 13:44 | HO.SPINEOV ---
Intake Visit Reasons: discuss MRI Intake Note: Mr. Poole is here today to discuss the results to his MRI. [employer] Installer Required: No Allergies No Known Allergies Allergy (Verified 03/22/24 08:58) Assessment & Plan Assessment & Plan (1) Scoliosis (and kyphoscoliosis), idiopathic: Code(s): M41.20 - Other idiopathic scoliosis, site unspecified Category: Medical Plan Mr Poole was seen back in the office today with Dr. Stout and myself. He continues to have the severe back pain as well as the right footdrop. The footdrop is not worse. Please refer to my previous note for all the specifics of his issues. We are dealing with an overlapping diagnosis of possibly lumbar stenosis, Lyme disease on top of recent diagnosis of DVT on Eliquis. Dr. Stout reviewed the films, obviously he has advanced degenerative disc disease and scoliosis which could explain back pain, but typically this is not something that would get worse abruptly. If we recall, back in November he had a significant change in his symptoms overlapping with his diagnosis of Lyme disease. That was also when he developed footdrop. Dr. Stout believes this could be a unifying diagnosis to explain the symptoms as it is well-known that Lyme disease can cause arthralgias and can also cause neurological dysfunction. He does not think that the thoracic MRI showing disc herniation on the left at T11-12 would explain his symptoms as the back pain is much lower than the area of T11-12. It is more in the L4-5 region. Therefore, in light of this and the fact that he is at minimum going to need 6 months of anticoagulation for his DVT, there is not much we can do to help him out right now. Once he is able to come off the anticoagulation, Dr. Stout would like an L4-5 epidural injection to see if this relieves any of his back pain as that is the most significant area of compression. We can re-evaluate after that. I will see him back in 6 months. Total amount of time spent in this visit was 20 minutes in discussion of symptoms, thoracic MRI and lumbar MRI imaging results and subsequent plan of care Андрей Stout MD,PhD [facility] Coding Level of Care Code Est Pt Level 3 (09815) Diagnoses Scoliosis (and kyphoscoliosis), idiopathic M41.20
== END 2024-04-06 14:25 | disposition home or self-care (01) ==
PROVIDERS: PCP Physician Assistant; Visit Provider Physician Assistant
DX: M41.20 Other idiopathic scoliosis, site unspecified (principal)
CPT/HCPCS: 99213

== ENCOUNTER → 2024-04-06 13:35 | Outpatient (BNVA) | payer MEDICARE, OTHER, SELFPAY | PROVIDERS: PCP Physician Assistant; Visit Provider Physician Assistant | DX: M41.20 Other idiopathic scoliosis, site unspecified (principal) | CPT/HCPCS: 99212 ==

== ENCOUNTER 2024-04-26 08:57 | Outpatient (AMB) | payer MEDICARE, OTHER, SELFPAY ==
--- NOTE | 2024-04-26 09:16 | A.OFFPC_ITS ---
Vital Signs 04/26/24 09:20 Height 5 ft 11.65 in Weight 296 lb BMI 40.5 BP 106/68 Blood Pressure Location Lt brachial Position Sitting Pulse 61 Pulse Source Pulse Oximeter Pulse Oximetry (%) 98 Oxygen Delivery Method Room Air Intake Visit Reasons: Follow up Medications Intake Note: Follow up Allergies No Known Allergies Allergy (Verified 04/26/24 09:17) Medication List - Last Reconciled 04/26/24 by Shahana Rosado PA-C apixaban (Eliquis) 10 mg PO BID atorvastatin 40 mg PO DAILY blood sugar diagnostic (FreeStyle Lite Strips) use daily As directed to check blood sugars for diabetes blood-glucose meter,continuous (FreeStyle Kathleen 3 [place]) Use daily As directed to monitor type 2 diabetes blood-glucose sensor (FreeStyle Kathleen 3 Sensor device) use daily As directed to monitor type 2 diabetes. changed q 14 days cyanocobalamin (vitamin B-12) 1,000 mcg PO DAILY gabapentin 600 mg (2 x 300 mg) PO TID 30 days lancets (FreeStyle Lancets) Use daily As directed to check blood sugar lisinopril 10 mg PO DAILY semaglutide (Ozempic) 1 mg (0.75 mL) subcut QWEEK Tobacco use date assessed: 01/25/24 Dental Screening Dental Screen Date: 01/25/24 HPI Follow up Medications HPI Details Patient is a 68-year-old male who presents today for a follow up. Endo: At our last visit I did set him a but the Kathleen 3 because he wanted to try it. He states that he wore the sensor and his blood sugars were on average about 101. His A1c today is 5.6. He is currently on metformin 500 mg daily and semaglutide 1 mg weekly. Tolerating this well. Initially when he started it he did lose weight and wonders if he went up on the dosage if he would continue to lose weight. CV: No chest pain or shortness a breath. Blood pressure today in the office is 106/68. Compliant with lisinopril 10 mg. He is on atorvastatin 40 mg. Musculoskeletal: Back pain is stable. [facility] with [facility]. He has to follow with vascular before he can be cleared to get surgery for his back. [facility] Medical History (Updated 03/16/24 @ 10:45 by CHACHA Mandel) Thyroid nodule Severe obesity Right inguinal hernia Newly diagnosed diabetes Multiple nodules of lung History of malignant neoplasm History of malignant neoplasm of kidney Former smoker Change in bowel habit KATHIA on CPAP Type 2 diabetes, controlled, with neuropathy Dyslipidemia HTN (hypertension) Surgical History (Updated 01/25/24 @ 15:40 by Marie Robles CMA) Hx of hernia repair H/O colonoscopy Social History (Updated 01/25/24 @ 14:46 by Marie Robles CMA) Housing: House Patient Tobacco Use Status: Former Tobacco user Cigarette Packs Per Day: 2 Years Smoked: 40 e-Cigarette/Vaping Use: Never Used service: Yes Current occupational status: retired Cognitive needs: No Hearing needs: Yes (partial hearing loss, tinnitus) Vision needs: No Questionnaire Thrive Questionnaire Date Thrive assessed: 03/15/24 I am a: Patient What is your living situation today?: I have a steady place to live Within the past 12 months, did the food you bought not last and you didn't have the money to get more?: Never true Within the past 12 months, did you worry whether your food would run out before you got money to buy more?: Never true Do you have trouble paying for medicines?: No Do you have trouble getting transportation to medical appointments?: No Do you have trouble paying your heating and electricity bill?: No Do you have trouble taking care of your child, family member or friend?: No Do you have trouble with day-to-day activities such as bathing, preparing meals, shopping, managing finances, etc.?: No Are you currently unemployed and looking for a job?: No Are you interested in more education?: No Please select the resources that you would like help with: None Currently or been in a relationship where the following occur: No concerns reported THRIVE Score: 0 LAYTON-7 AMB Questionnaire LAYTON-7 Date LAYTON - 7 assessed: 01/25/24 Source: Developed by Drs. Garrett Marino, Tayla Gallegos, Kirt Rodrigues and colleagues, with an educational diana from [employer]. Physical exam (Primary Care) Vital Signs: Last Vital Signs Pulse 61 04/26/24 09:20 BP 106/68 04/26/24 09:20 Pulse Ox 98 04/26/24 09:20 Oxygen Delivery Method Room Air 04/26/24 09:20 BMI result Body Mass Index 40.5 Tobacco/Smoking Status: Tobacco use Status Tobacco use date assessed 01/25/24 04/26/24 09:17 Patient Tobacco Use Status Former Tobacco user 04/26/24 09:17 e-Cigarette/Vaping Use Never Used 04/26/24 09:17 Thrive Assessment: Date of Thrive Assessment Date Thrive assessed 03/15/24 04/26/24 09:17 Currently or been in a relationship where the following occur: No concerns reported Const Orientation/consciousness: patient oriented x3 HENMT Ears: hearing grossly normal bilaterally Neck Thyroid: Thyroid normal Lymphatic: no lymphadenopathy noted Resp Auscultation: clear to auscultation bilaterally Cardio Rate: regular rate Rhythm: regular rhythm Heart sounds: S1 normal heart sound present and S2 normal heart sound present GI Inspection: Yes normal to inspection Palpation (GI): Soft to palpation and Other GI palpation findings present (nontender, no cva tenderness) Auscultation: normoactive bowel sounds Rectal Exam - Male: Yes deferred Skin General skin exam: no rashes or lesions noted Neuro General: patient oriented x3, gait normal and no focal motor deficits Results Reviewed Results Reviewed: Laboratory Tests 02/14/24 02/14/24 03/08/24 08:31 08:39 08:06 Creatinine 1.06 Estimated GFR > 60 Fasting Glucose 106 H Hemoglobin A1c % 6.3 H AST 25 ALT 35 Triglycerides 139 Cholesterol 150 LDL Cholesterol, Calc 93 HDL Cholesterol 30 L Vitamin B12 485 Folate 9.6 Urine Creatinine 141.00 Urine Microalbumin 9.0 Microalb/Creat Ratio 6.3 Coding Level of Care Code Est Pt Level 4 (54643) Complex EM visit Add On G2211 Diagnoses Type 2 diabetes, controlled, with neuropathy E11.40 Lumbar pain with radiation down both legs M54.50; M79.604; M79.605 Primary hypertension I10 Hypertension type: primary hypertension Assessment & Plan Assessment & Plan (1) Type 2 diabetes, controlled, with neuropathy: Code(s): E11.40 - Type 2 diabetes mellitus with diabetic neuropathy, unspecified Category: Medical Plan: Increase Ozempic to 2 mg. Discontinue metformin. Advised to follow up in 3 months. Check labs prior to next appointment. He will follow up sooner if anything worsens or changes. (2) Lumbar pain with radiation down both legs: Code(s): M54.50 - Low back pain, unspecified; M79.604 - Pain in right leg; M79.605 - Pain in left leg Category: Medical Plan: Increase gabapentin to 2 capsules 3 times a day. He will let me know if this helps with pain control. (3) HTN (hypertension): Code(s): I10 - Essential (primary) hypertension Category: Medical Qualifiers: Hypertension type: primary hypertension Qualified Code(s): I10 - Essential (primary) hypertension Plan: WNL. Continue current regimen. Orders: Orders Hemoglobin A1c Today E11.40 - Type 2 diabetes mellitus with diabetic neuropathy, unspecified, E78.5 - Hyperlipidemia, unspecified, I10 - Essential (primary) hypertension, M54.50 - Low back pain, unspecified, M79.604 - Pain in right leg, M79.605 - Pain in left leg Lipid Panel Today E11.40 - Type 2 diabetes mellitus with diabetic neuropathy, unspecified, E78.5 - Hyperlipidemia, unspecified, I10 - Essential (primary) hypertension, M54.50 - Low back pain, unspecified, M79.604 - Pain in right leg, M79.605 - Pain in left leg Comprehensive Met. Panel Today E11.40 - Type 2 diabetes mellitus with diabetic neuropathy, unspecified, E78.5 - Hyperlipidemia, unspecified, I10 - Essential (primary) hypertension, M54.50 - Low back pain, unspecified, M79.604 - Pain in right leg, M79.605 - Pain in left leg Medications: New semaglutide (Ozempic) 2 mg (0.75 mL) subcut QWEEK 3 mL 6RF Changed From gabapentin 300 mg PO TID 30 days 90 caps 1RF To gabapentin 600 mg (2 x 300 mg) PO TID 30 days 180 caps 2RF Discontinued metformin ER Discontinued Reason: Doctor's Order 500 mg PO DAILY 90 tabs 3RF semaglutide (Ozempic) Discontinued Reason: Doctor's Order 1 mg (0.75 mL) subcut QWEEK 3 mL 1RF
[2024-04-26 09:20] VITALS: BP 106/68; PULSE 61; O2SAT 98; BMI 40.5
== END 2024-04-26 09:56 | disposition home or self-care (01) ==
PROVIDERS: PCP Physician Assistant; Visit Provider Physician Assistant
DX: E11.40 Type 2 diabetes mellitus with diabetic neuropathy, unspecified (principal); M54.50 Low back pain, unspecified; M79.604 Pain in right leg; M79.605 Pain in left leg; I10 Essential (primary) hypertension

== ENCOUNTER → 2024-04-26 08:57 | Outpatient (BNVA) | payer MEDICARE, OTHER, SELFPAY | PROVIDERS: PCP Physician Assistant; Visit Provider Physician Assistant | DX: E11.40 Type 2 diabetes mellitus with diabetic neuropathy, unspecified (principal); M54.50 Low back pain, unspecified; M79.604 Pain in right leg; M79.605 Pain in left leg; I10 Essential (primary) hypertension | CPT/HCPCS: 99212 ==

== ENCOUNTER 2024-07-06 11:11 | Outpatient (AMB) | payer MEDICARE, OTHER, SELFPAY ==
--- OUTSIDE RECORDS SUMMARY | 2024-07-06 11:14 | XMS_ITS | Continuity of Care Document ---
Author Organization [facility] Address [address] [place] [address]- Care Team Providers Care Grocery Store Courtesy Clerk Name Role Phone Shahana Beltrán Primary Care Physician Encounter [facility] ACCT R [id number] Date(s): 05/23/24 - 06/22/24 [facility] [address] [place] [address]- Attending Physician: Lian Garland Admitting Physician: Lian Garland Referring Physician: AdmtrLian Encounter Type: Triage Allergies, Adverse Reactions, Alerts No Known Medication Allergies Immunizations Given and Recorded Vaccine Date Status Refusal Reason [id number] 12y+ bivalent booster vax 05/17/22 Recorded influenza virus vaccine, inactivated 04/29/22 Kendall rded influenza virus vaccine, inactivated 03/27/21 Kendall rded influenza virus vaccine, inactivated 04/23/20 Kendall rded influenza virus vaccine, inactivated 05/01/19 Kendall rded influenza virus vaccine, inactivated 04/06/18 Kendall rded influenza virus vaccine, inactivated 09/03/16 Kendall rded influenza virus vaccine, inactivated 04/15/15 Kendall rded influenza virus vaccine, inactivated 05/23/14 Kendall rded influenza virus vaccine, inactivated 05/28/13 Kendall rded influenza virus vaccine, inactivated 06/15/11 Kendall rded SARS-CoV-2 (COVID-19) mRNA BNT-162b2 vac 07/23/21 Recorded SARS-CoV-2 (COVID-19) mRNA BNT-162b2 vac 06/11/21 Recorded SARS-CoV-2 (COVID-19) mRNA BNT-162b2 vac 10/30/20 Recorded SARS-CoV-2 (COVID-19) mRNA BNT-162b2 vac 10/07/20 Recorded tetanus/diphtheria/pertussis, acel(Tdap) 06/15/11 Recorded pneumococcal 23-valent vaccine 10/29/09 Recorded Medications atorvastatin 40 mg oral tablet See Instructions, Take 1 tablet by mouth daily., # 90 tablet, 1 Refills, Maintenance, 07/23/23 7:34:00 PM EST, [facility] #[id number], 186, cm, 05/18/23 9:43:00 EST, Height, 132.5, kg, 03/01/23 8:57:00 EDT, Dry Weight Start Date: 07/23/23 Status: Ordered Quantity: 90.0 Unit: tablet Repeat number: 2 Eliquis 5 mg oral tablet See Instructions, 2 tablet By Mouth 2 times a day x 13 doses (first dose given around 12 PM on 02/18/2024) followed by 1 tablet twice a day for a total duration of 6 months, # 60 tablet, 3 Refills, Maintenance, 02/18/24 11:49:00 AM EDT, [facility] #[id number], Partial fill upon patient request ifthe prescription is for a schedule II opioid drug., 186, cm, 02/18/24 11:14:00 EDT, Height, 137.2, kg, 02/18/24 11:14:00 EDT, Dry Weight Start Date: 02/18/24 Status: Ordered Quantity: 60.0 Unit: tablet Repeat number: 4 gabapentin 300 mg oral capsule Refills 0, Maintenance, 02/08/24 1:47:00 PM EDT, Partial fill upon patient request if the prescription is for a schedule II opioid drug. Start Date: 02/08/24 Status: Ordered Repeat number: 1 lisinopril 10 mg oral tablet 10 mg, 1, tablet, By Mouth, Daily, # 90 tablet, Refills 3, Tot. Refills 3, Maintenance, 05/18/23 10:08:00 AM EST, Route to Pharmacy Electronically, [facility] #[id number], Partial fill upon patient request if the prescription is for a schedule II opioid drug., 186, cm, 05/18/23 9:43:00 EST, Height, 132.5, kg, 03/01/23 8:57:00 EDT, Dry Weight Start Date: 05/18/23 Status: Ordered Quantity: 90.0 Unit: tablet Repeat number: 4 Ozempic 2 mg/1.5 mL (0.25 mg or 0.5 mg dose) subcutaneous solution = 0.25 mg, Subcutaneous Injection, Every Tuesday, rotate injection sites, # 1 each, 0 Refills, Maintenance, 02/17/24 7:50:00 PM EDT, Solution, Partial fill upon patient request if the prescription is for a schedule II opioid drug. Start Date: 02/17/24 Status: Ordered Quantity: 1.0 Unit: each Repeat number: 1 Problem List Condition Confirmation Course Effective Dates Status Health Status Informant Change in bowel habit Confirmed Active Chronic obstructive lung disease Confirmed 08/17/11 Active Former smoker Confirmed Active History of malignant neoplasm of kidney Confirmed 08/27/19 Active Hypercholesterolemia Confirmed 08/17/11 Active HTN (hypertension) Confirmed Active Multiple nodules of lung Confirmed 04/28/21 Active Newly diagnosed diabetes Confirmed Active Numbness and tingling of both feet Confirmed Active Right inguinal hernia Confirmed Active Severe obesity (BMI 35.0-39.9) with comorbidity Confirmed Active Thyroid nodule Confirmed Active Social History Social History Type Response Smoking Status Former smoker, quit more than 30 days ago; Other: quit 2020, smoked for 45, 2 packs a day; Started at age: 14; entered on: 01/18/24 Sex Sex Representation Male (finding) Patient Care team information Care Team Personnel Name: Shahana Beltrán Position: Reference Physician Member Role: PCP Address: [address] [place] [address] Telecom: Care Team Related Persons Name: MARIA ELENA AQUINO Insurance Providers Guarantor name: COLE AQUINO Health Plan Information #: 1 Payer: MEDICARE PART B OUTPT Member Number: NA Policy Number: NA Group Number: NA Health Plan Information #: 2 Payer: [employer] MCR A ONLY Member Number: NA Policy Number: NA Group Number: NA
--- OUTSIDE RECORDS SUMMARY | 2024-07-06 11:14 | XMS_ITS | Continuity of Care Document ---
Author Organization [facility] Address [address] [place] [address]- Care Team Providers Care Tufting Machine Fixer Name Role Phone Shahana Beltrán B Primary Care Physician [phone] [id number]s): [facility]12[facility]24 - 06/19/24 [facility] [address] [place] [address]- Attending Physician: Ismael Alvarez MD Admitting Physician: Ismael Alvarez MD Encounter Type: Office Visit Allergies, Adverse Reactions, Alerts No Known Medication Allergies Immunizations Given and Recorded Vaccine Date Status Refusal Reason [id number] 12y+ bivalent booster vax 05/17/22 Recorded influenza [...] 1 Refills, Maintenance, 07/23/23 7:34:00 PM EST, [facility] #[id number], 186, cm, 05/18/23 9:43:00 EST, Height, 132.5, [...] 3 Refills, Maintenance, 02/18/24 11:49:00 AM EDT, [facility] #[id number], Partial fill upon patient request ifthe prescription [...] 10:08:00 AM EST, Route to Pharmacy Electronically, [facility] #[id number], Partial fill upon patient request if the [...] comorbidity Confirmed Active Thyroid nodule Confirmed Active Vital Signs Most recent to oldest [Reference Range]: 1 Height 186 cm (06/12/24 11:11 AM) Weight 131.5 kg (06/12/24 11:11 AM) Oxygen Saturation [94-100 %] 94 % (06/12/24 11:11 AM) Pulse Rate [55-90 bpm] 67 bpm (06/12/24 11:11 AM) Body Mass Index [18.5-24.99 kg/m2] 38.01 kg/m2 *>HHI* (06/12/24 11:11 AM) Blood Pressure [90-138/55-84 mm Hg] 120/ 60mm Hg (06/12/24 11:11 AM) Weight Obtained Via Patient/family state d (06/12/24 11:11 AM) Social History Social History Type Response Smoking Status Former smoker, quit more than 30 days ago; Other: quit 2020, smoked for 45, 2 packs a day; Started at age: 14; entered on: 01/18/24 Sex Sex Representation Male (finding) Note * Yisel Kelley: PERFORM Event Display: Patient Education/Instruction Authored Date: [id number] Ambulatory Adult Visit Summary [facility] [address] [facility] [address] [address] Name: COLE AQUINO : 1955?? Visit: 06/12/2024 10:40?? Ambulatory Visit Instructions ?? Your Care Team Primary Care Provider Shahana Beltrán? This Visit Provider Kim HERNANDEZ, Ismael Benítez Vitals Signs Pulse Rate: 67 bpm Height: 186 cm Systolic Blood Pressure: 120 mm Hg Weight: 131.5 kg Diastolic Blood Pressure: 60 mm Hg Body Mass Index:??38.01 kg/m2??Critical Oxygen Saturation: 94 % Body surface area: 2.61 Medications The list below reflects the information in our records and provided by you today along with any changes made during this visit. Please continue your medications until treatment is completed or stopped by your provider. If this is different from the information you have or there are other questions,please contact the prescribing provider. What How Much When Instructions Unchanged apixaban (Eliquis 5 mg oral tablet) See instructions 2 tablet By Mouth 2 times a day x 13 doses (first dose given around 12 PM on 2023) followed by 1 tablet twice a day for a total duration of 6 months ?? Unchanged Atorvastatin (atorvastatin 40 mg oral tablet) See instructions Take 1 tablet by mouth daily. ?? Unchanged Gabapentin (gabapentin 300 mg oral capsule) Unchanged Lisinopril (lisinopril 10 mg oral tablet) 1 tab(s) Oral Daily Unchanged semaglutide (Ozempic 2 mg/ 1.5 mL (0.25 mg or 0.5 mg dose) subcutaneous solution) 0.25 Milligram Subcutaneous Injection Every Tuesday rotate injection sites ?? Medications and Immunizations Administered Medications Given During Visit No medications given during this visit.?? Allergies (NKA means No Known Allergies) No Known Medication Allergies Common Emergency Awareness Tips IS IT A STROKE? Act FAST and Check for these signs: FACE Does the face look uneven? ARM Does one arm drift down? SPEECH Does their speech sound strange? TIME Call at any sign of stroke ?? Heart Attack Signs Chest discomfort: Most heart attacks involve discomfort in the center of the chest and lasts more than a few minutes, or goes away and comes back. It can feel like uncomfortable pressure, squeezing, fullness or pain. Discomfort in upper body: Symptoms can include pain or discomfort in one or both arms, back, neck, jaw or stomach. Shortness of breath: With or without discomfort. Other signs: Breaking out in a cold sweat, nausea, or lightheaded. Remember, MINUTES DO MATTER. If you experience any of these heart attack warning signs, call to get immediate medical attention! ?? Smoking can increase your chances of developing chronic health problems and can cause harmful effects to other family members in your house. If you smoke, you are strongly encouraged to quit. Please call [facility] [facility] at [phone] or [phone] Roller ([phone]) or log in to [email or web address] for referrals to smoking cessation programs. ?? The National Suicide Prevention Hotline is available 31/01 if you or someone you know needs to find a reason to keep living. By calling 7-368-295-[employer]iant (8283) you'll be connected to a skilled, trained counselor at a crisis center in your area. [facility] [employer] Portal You can view and manage your care through the patient portal or by using a health care lani of your choosing. [email or web address] is a website that allows you to securely view your medical information including your hospital discharge summary, office visit summaries, medications and follow-up visits. You can also request appointments, renew medications, and request access to your medical information using a health care lani of your choosing, or just ask a question. You can enroll at [email or web address] or register during your next office visit. [facility], in keeping with [facility] guidance, no longer requires face masks for staff, patientsor visitors in most situations. Similiar to time spent indoors at other locations, there is the chance that you were exposed to repiratory viruses during your time with us (such as flu or COVID-19). If you develop symptoms concerning for a viral respiratory infection, please seek testing (and treatment if indicated) from your medical provider or home test kit. ?? Disclaimer: The information provided is of a general nature and is intended to be used in conjunction with the recommendations and advice of your health care practitioner. Every effort has been made to ensure that the information provided is accurate and complete at the time it is provided to you however, as your needs change, or, as new information becomes available, different or additional instructions may be required. ?? If you have questions, please consult with your primary care provider or pharmacist, as appropriate. This information is not intended to serve as substitution for assessment and evaluation by a qualified health care provider. If you do not have a primary care provider, you may find a [facility] provider by calling [facility] at [phone]. Patient Care team information Care Team Personnel Name: Shahana Beltrán Position: Reference Physician Member Role: PCP Address: [address] [place], [place] [address] Telecom: Care Team Related Persons Name: MARIA ELENA AQUINO Insurance Providers Guarantor name: COLE AQUINO Health Plan Information #: 2 Payer: [facility] MCR A ONLY Member Number: [id number] Policy Number: NA Group Number: NA Health Plan Information #: 1 Payer: MEDICARE PART B OUTPT Member Number: [id number] Policy Number: NA Group Number: NA
--- NOTE | 2024-07-06 12:17 | A.SPINEOV_ITS ---
Intake Visit Reasons: 3 months f/up Intake Note: Mr. Poole is here today for a 3 month F/u. Health Promotion Manager Required: No Allergies No Known Allergies Allergy (Verified 07/06/24 12:17) Assessment & Plan Assessment & Plan (1) Scoliosis (and kyphoscoliosis), idiopathic: Code(s): M41.20 - Other idiopathic scoliosis, site unspecified Category: Medical Plan Mr Poole came back for follow-up visit. The weakness in his right tibialis seems to be getting better. I would rate it as a 4-5 now. His DVT and swelling in his leg seemed to have gone away as well. He recently had an arterial study and was told he could come off the Eliquis soon. The Lyme disease flare-ups also seemed to have quite a down quite a bit. He still has chronic back issues when he is standing and doing activities. He has not felt any weakness or numbness going down his left leg. On my exam other than his right foot he otherwise has full strength, slightly depressed reflexes in the lower extremities, no clonus. I told him if he would like to consider doing injections as part of his conservative management for his back pain I would be happy to refer him to 1 of our colleagues. He will let me know. Total amount of time spent in this visit was 20 minutes in discussion of symptoms, lumbar MRI imaging results and subsequent plan of care Андрей Stout MD,PhD [facility] Coding Level of Care Code Est Pt Level 3 (16501) Diagnoses Scoliosis (and kyphoscoliosis), idiopathic M41.20
== END 2024-07-06 12:59 | disposition home or self-care (01) ==
PROVIDERS: PCP Physician Assistant; Visit Provider Physician Assistant
DX: M41.20 Other idiopathic scoliosis, site unspecified (principal)
CPT/HCPCS: 99213

== ENCOUNTER → 2024-07-06 11:11 | Outpatient (BNVA) | payer MEDICARE, OTHER, SELFPAY | PROVIDERS: PCP Physician Assistant; Visit Provider Physician Assistant | DX: M41.20 Other idiopathic scoliosis, site unspecified (principal) | CPT/HCPCS: 99212 ==

== ENCOUNTER 2024-08-02 08:13 | Outpatient (AMB) | payer MEDICARE, OTHER, SELFPAY ==
--- NOTE | 2024-08-02 08:22 | MHC.PC.OV ---
Vital Signs 08/02/24 08:28 Height 5 ft 11.65 in Weight 295 lb 4 oz BMI 40.4 BP 106/68 Blood Pressure Location Rt brachial Position Sitting Pulse 80 Pulse Source Pulse Oximeter Pulse Oximetry (%) 93 Oxygen Delivery Method Room Air Intake Visit Reasons: dm Intake Note: Diabetes follow up. Vascular doctor took pt of Eliquis Allergies No Known Allergies Allergy (Verified 07/06/24 12:17) Medication List - Last Reconciled 08/02/24 by Shahana Rosado PA-C atorvastatin 40 mg PO DAILY blood sugar diagnostic (FreeStyle Lite Strips) use daily As directed to check blood sugars for diabetes blood-glucose meter,continuous (FreeStyle Kathleen 3 Marion) Use daily As directed to monitor type 2 diabetes blood-glucose sensor (FreeStyle Kathleen 3 Sensor device) use daily As directed to monitor type 2 diabetes. changed q 14 days cyanocobalamin (vitamin B-12) 1,000 mcg PO DAILY gabapentin 600 mg (2 x 300 mg) PO TID 90 days lancets (FreeStyle Lancets) Use daily As directed to check blood sugar lisinopril 10 mg PO DAILY semaglutide (Ozempic) 2 mg (0.75 mL) subcut QWEEK Tobacco use date assessed: 01/25/24 Dental Screening Dental Screen Date: 01/25/24 HPI dm HPI Details Patient is a 68-year-old male who presents today for a follow up. Endo: His A1c today is 5.8. Ozempic 2 mg weekly. His states that his weight has not changed because he refuses to work on his diet. His blood sugars have been very well-controlled despite not losing weight. He states that he is going to make some changes. CV: No chest pain or shortness a breath. Blood pressure today in the office is 106/68. Compliant with lisinopril 10 mg. He is on atorvastatin 40 mg. Musculoskeletal: Back pain is stable. Following with the spine Center and was source medicine at [facility]. He states that when he last saw the spine center they recommended he try a cortisone injection 1st. He is going to contact his [facility] sports med physician to discuss this. He states that the pain is stable but it is still radiates down his legs at times. The gabapentin that he is on for his neuropathy is helpful. His right foot still has persistent paresthesias despite the Lyme disease treatment. He is worried that he is getting intermittent flare-ups of his Lyme disease and would like a consult with Infectious Disease. We did discuss also doing eat mg is and he states that his sports medicine physician at [facility] told him to get this done as well. He states that he is going to do it there. He does also endorse intermittent bilateral hip pain but again, as states he is going to make an appointment to have this reviewed over there. Vascular: Dr. Alvarez saw him 1 month ago and was told no more eliquis. He has been off of this for one month. States that the DVT has resolved. Onc/heme: Follows with Dr. Ware from [facility]. He did have a CT of abdomen and pelvis in May which did not show any evidence of metastatic disease. He does have a partial left nephrectomy as expected. He was also noted to have renal cysts. Last year he had a thyroid nodule which was noted on CT of the ultrasound did show that the thyroid nodule did not require any additional follow up. Urololgy: States he has an upcoming appointment in September to monitor the renal cysts. colonoscopy: at [facility] in 2023- on ten year plan [facility] Medical History (Updated 08/02/24 @ 10:13 by Shahana Rosado PA-C) Thyroid nodule Severe obesity Right inguinal hernia Newly diagnosed diabetes Multiple nodules of lung History of malignant neoplasm History of malignant neoplasm of kidney Former smoker Change in bowel habit KATHIA on CPAP Type 2 diabetes, controlled, with neuropathy Dyslipidemia HTN (hypertension) Surgical History (Updated 01/25/24 @ 15:40 by Marie Robles CMA) Hx of hernia repair H/O colonoscopy Social History (Updated 01/25/24 @ 14:46 by Marie Robles CMA) Housing: House Alcohol intake: current Patient Tobacco Use Status: Former Tobacco user Cigarette Packs Per Day: 2 Years Smoked: 40 e-Cigarette/Vaping Use: Never Used service: Yes Current occupational status: retired Cognitive needs: No Hearing needs: Yes (partial hearing loss, tinnitus) Vision needs: No Questionnaire PHQ-9 Over the last 2 weeks, how often have you been bothered by any of the following problems? 1. Little interest or pleasure in doing things: not at all 2. Feeling down, depressed, or hopeless: not at all 3. Trouble falling or staying asleep, or sleeping too much: not at all 4. Feeling tired or having little energy: not at all 5. Poor appetite or overeating: not at all 6. Feeling bad about yourself - or that you are a failure or have let yourself or your family down: not at all 7. Trouble concentrating on things, such as reading the newspaper or watching television: not at all 8. Moving or speaking so slowly that other people could have noticed. Or the opposite - being so fidgety or restless that you have been moving around a lot more than usual: not at all 9. Thoughts that you would be better off or of hurting yourself in some way: not at all Total score: 0 Depression Screening Interpretation: Negative Depression Screening Done: Yes 14664 - PHQ-9 Billing: Yes Source: Developed by Drs. Garrett Marino, Tayla Gallegos, Kirt Rodrigues and colleagues, with an educational diana from [employer]. Thrive Questionnaire Date Thrive assessed: 08/02/24 I am a: Patient What is your living situation today?: I have a steady place to live Within the past 12 months, did the food you bought not last and you didn't have the money to get more?: Never true Within the past 12 months, did you worry whether your food would run out before you got money to buy more?: Never true Do you have trouble paying for medicines?: No Do you have trouble getting transportation to medical appointments?: No Do you have trouble paying your heating and electricity bill?: No Do you have trouble taking care of your child, family member or friend?: No Do you have trouble with day-to-day activities such as bathing, preparing meals, shopping, managing finances, etc.?: No Are you currently unemployed and looking for a job?: No Are you interested in more education?: No Please select the resources that you would like help with: None Currently or been in a relationship where the following occur: No concerns reported THRIVE Score: 0 AUDIT C Alcohol Use Questionnaire (AUDIT-C) 1. How often do you have a drink containing alcohol?: 2-4 times a month 2. How many drinks containing alcohol do you have on a typical day when you are drinking?: 1 or 2 3. How often do you have six or more drinks on one occasion?: Never Total Score: 2 Score Reviewed/Action Taken: Yes LAYTON-7 AMB Questionnaire LAYTON-7 Date LAYTON - 7 assessed: 08/02/24 Feeling nervous, anxious, or on edge: 0 = Not at all Not being able to stop or control worryin = Not at all Worrying too much about different things: 0 = Not at all Trouble relaxin = Not at all Being so restless that it is hard to sit still: 0 = Not at all Becoming easily annoyed or irritable: 0 = Not at all Feeling afraid as if something awful might happen: 0 = Not at all Total LAYTON-7 score (0-4 normal; 5-9 mild; 10-14 moderate; 15-21 severe): 0 Source: Developed by Drs. Garrett Marino, Tayla Gallegos, Kirt Rodrigues and colleagues, with an educational diana from [employer]. LAYTON-7 Assessment Billing LAYTON-7 Assessment Tool: LAYTON-7 Assessment 93663 Physical exam (Primary Care) Tobacco/Smoking Status: Tobacco use Status Tobacco use date assessed 01/25/24 08/02/24 08:27 Patient Tobacco Use Status Former Tobacco user 08/02/24 08:27 e-Cigarette/Vaping Use Never Used 08/02/24 08:27 PHQ-9: PHQ-9 Score PHQ-9: Total score 0 08/02/24 08:27 Depression Screening Interpretation: Negative Thrive Assessment: Date of Thrive Assessment Date Thrive assessed 03/15/24 08/02/24 08:27 Currently or been in a relationship where the following occur: No concerns reported Const Orientation/consciousness: patient oriented x3 HENMT Ears: hearing grossly normal bilaterally Neck Thyroid: Thyroid normal Lymphatic: no lymphadenopathy noted Resp Auscultation: clear to auscultation bilaterally Cardio Rate: regular rate Rhythm: regular rhythm Heart sounds: S1 normal heart sound present and S2 normal heart sound present GI Inspection: Yes normal to inspection Palpation (GI): Soft to palpation and Other GI palpation findings present (nontender, no cva tenderness) Auscultation: normoactive bowel sounds Rectal Exam - Male: Yes deferred Skin General skin exam: no rashes or lesions noted Neuro General: patient oriented x3, gait normal and no focal motor deficits Results AMB Hemoglobin A1c AMB Hemoglobin A1c 5.8 % Last Edit by Marie Robles CMA on 08/02/24 08:34 Coding Level of Care Code Est Pt Level 4 (07864) Complex EM visit Add On G2211 Diagnoses Lyme disease A69.20 Type 2 diabetes, controlled, with neuropathy E11.40 Severe obesity E66.01 Primary hypertension I10 Hypertension type: primary hypertension Dyslipidemia E78.5 Lumbar pain with radiation down both legs M54.50; M79.604; M79.605 Additional Codes LAYTON-7 Assessment Billing - LAYTON-7 Assessment Tool: LAYTON-7 Assessment 81110 ([id number]) PHQ-9 - 93093 - PHQ-9 Billing: Yes ([id number]) Assessment & Plan Assessment & Plan (1) Lyme disease: Code(s): A69.20 - Lyme disease, unspecified Category: Medical Plan: Referral to Infectious Disease. He was treated this summer with doxycycline for 30 days. (2) Type 2 diabetes, controlled, with neuropathy: Code(s): E11.40 - Type 2 diabetes mellitus with diabetic neuropathy, unspecified Category: Medical Plan: Continue with the Ozempic. Diabetic labs ordered and advised to complete this today. (3) Severe obesity: Code(s): E66.01 - Morbid (severe) obesity due to excess calories Category: Medical Plan: Discussed the importance of weight loss. I have encouraged him to reduce his carbohydrate and caloric intake. (4) HTN (hypertension): Code(s): I10 - Essential (primary) hypertension Category: Medical Qualifiers: Hypertension type: primary hypertension Qualified Code(s): I10 - Essential (primary) hypertension Plan: WNL. Continue current regimen (5) Dyslipidemia: Code(s): E78.5 - Hyperlipidemia, unspecified Category: Medical Plan: Continue on atorvastatin. Lipids ordered. (6) Lumbar pain with radiation down both legs: Code(s): M54.50 - Low back pain, unspecified; M79.604 - Pain in right leg; M79.605 - Pain in left leg Category: Medical Plan: He is going to follow up with sports Medicine. Advised to do the nerve conduction study. Increase gabapentin as he does have some breakthrough pains. Follow up in 3 months. Sooner if needed. Patient understands and agrees with the plan. Orders: Orders AMB Hemoglobin A1c Today E11.40 - Type 2 diabetes mellitus with diabetic neuropathy, unspecified Referrals Infectious Disease Referral A69.20 - Lyme disease, unspecified Medications: Changed From gabapentin 600 mg (2 x 300 mg) PO TID 90 days 540 caps 2RF To gabapentin 900 mg (3 x 300 mg) PO TID 30 days 270 caps 4RF
[2024-08-02 08:28] VITALS: BP 106/68; PULSE 80; O2SAT 93; BMI 40.4
--- OUTSIDE RECORDS SUMMARY | 2024-08-02 08:28 | XMS_ITS | Continuity of Care Document ---
Author Organization [facility] Address [address] [place] [address]- Care Team Providers Care Anthropology Lecturer Name Role Phone Shahana Beltrán Primary Care Physician [phone] Encounter [facility] Date(s): 06/12/24 - 07/12/24 [facility] [address] [place] [address]- Attending Physician: Lian Garland Admitting Physician: Lian Garland Referring Physician: AdmtrLian Encounter Type: Triage Allergies, Adverse Reactions, Alerts No Known Medication Allergies Immunizations Given and Recorded Vaccine Date Status Refusal Reason [id number] 12y+ bivalent booster vax 05/17/22 Recorded influenza [...] 1 Refills, Maintenance, 07/23/23 7:34:00 PM EST, [facility] #[id number], 186, cm, 05/18/23 9:43:00 EST, Height, 132.5, [...] 3 Refills, Maintenance, 02/18/24 11:49:00 AM EDT, [facility] #[id number], Partial fill upon patient request ifthe prescription [...] 10:08:00 AM EST, Route to Pharmacy Electronically, [facility] #[id number], Partial fill upon patient request if the [...] Position: Reference Physician Member Role: PCP Address: [address] [place] [address] Telecom: Care Team Related Persons Name: MARIA ELENA AQUINO Insurance Providers Guarantor name: COLE AQUINO Health Plan Information #: 1 Payer: MEDICARE PART B OUTPT Member Number: NA Policy Number: NA Group Number: NA Health Plan Information #: 2 Payer: FOR LIFE MCR A ONLY Member Number: NA Policy Number: NA Group Number: NA
== END 2024-08-02 09:03 | disposition home or self-care (01) ==
PROVIDERS: PCP Physician Assistant; Visit Provider Physician Assistant
DX: E11.40 Type 2 diabetes mellitus with diabetic neuropathy, unspecified (principal); E66.01 Morbid (severe) obesity due to excess calories; A69.20 Lyme disease, unspecified; Z68.41 Body mass index [BMI] 40.0-44.9, adult; I10 Essential (primary) hypertension; E78.5 Hyperlipidemia, unspecified; M54.50 Low back pain, unspecified; M79.604 Pain in right leg; M79.605 Pain in left leg

== ENCOUNTER → 2024-08-02 08:13 | Outpatient (BNVA) | payer MEDICARE, OTHER, SELFPAY | PROVIDERS: PCP Physician Assistant; Visit Provider Physician Assistant ==

== ENCOUNTER 2024-08-02 08:58 | Outpatient (REF) | payer MEDICARE, OTHER, SELFPAY ==
[2024-08-02 11:33] LABS: MANUAL DIFF FLAG NO
[2024-08-02 11:42] LABS: Basophils Percent Auto 0.7 % (0-2); Eosinophils Absolute Auto 0.1 X10*3/uL (0.0-0.4); Eosinophils Percent Auto 1.8 % (0-4); Hematocrit 41.9 % (42.0-52.0); Hemoglobin 13.9 g/dl (14.0-18.0); Imm Gran Abs Auto 0.01 X10*3/uL (0.00-0.03); Imm Gran Pct Auto 0.2 % (0.0-0.4); Lymphocytes Absolute Auto 1.6 X10*3/uL (1.2-4.9); Lymphocytes Percent Auto 35.4 % (20-40); Mean Corpuscular HGB Conc 33.2 g/dl (31.0-36.0); Mean Corpuscular Hemoglobin 30.3 pg (27.0-33.0); Mean Corpuscular Volume 91.3 fL (80.0-98.0); Mean Platelet Volume 11.2 fL (9.4-12.4); Monocytes Absolute Auto 0.4 X10*3/uL (0.1-1.2); Monocytes Percent Auto 9.4 % (2-11); Neutrophils Absolute Auto 2.4 x10*3/uL (2.0-8.3); Neutrophils Percent Auto 52.5 % (45-73); Platelet Count 219 X10*3/uL (160-400); Red Blood Count 4.59 X10*6/uL (4.60-5.80); White Blood Count 4.5 X10*3/uL (4.8-10.8)
[2024-08-02 11:52] LABS: Estimated Average Glucose 123 mg/dL; Hemoglobin A1c % 5.9 % (<6.0)
[2024-08-02 12:17] LABS: Alanine Aminotransferase 36 U/L (0-40); Albumin Level 4.2 g/dL (3.5-5.0); Alkaline Phosphatase 57 U/L (39-117); Anion Gap 11 (12-20); Aspartate Amino Transferase 27 U/L (5-37); Bilirubin Total 0.5 mg/dL (0.0-1.0); Blood Urea Nitrogen 16 mg/dL (9-16); Calcium 9.7 mg/dL (8.4-10.2); Carbon Dioxide 25 mmol/L (22-29); Chloride 108 mmol/L (96-108); Cholesterol 133 mg/dL (<200); Estimated Glomerular Filt Rate > 60; Glucose Fasting 97 mg/dL (60-99); Glucose Random 98 mg/dL (60-115); HDL Cholesterol 28 mg/dL (>40); LDL Cholesterol Calculated 83 mg/dL (<100); Potassium 4.6 mmol/L (3.3-5.1); Sodium 139 mmol/L (135-145); Total Protein 7.3 g/dL (6.5-8.0); Triglycerides 114 mg/dL (<150)
== END 2024-08-02 08:59 | disposition home or self-care (01) ==
LOC: HO.WFDLDS 08:58
PROVIDERS: Visit Provider Physician Assistant
DX: E11.40 Type 2 diabetes mellitus with diabetic neuropathy, unspecified (principal); A69.20 Lyme disease, unspecified; E66.01 Morbid (severe) obesity due to excess calories; I10 Essential (primary) hypertension; E78.5 Hyperlipidemia, unspecified; M54.50 Low back pain, unspecified; M79.604 Pain in right leg; M79.605 Pain in left leg; D64.9 Anemia, unspecified; Z79.899 Other long term (current) drug therapy
CPT/HCPCS: 36415; 80053; 80061; 83036; 85025; 96127; 99212

== ENCOUNTER 2024-09-03 14:25 | Outpatient (REF) | payer MEDICARE, OTHER, SELFPAY ==
--- OUTSIDE RECORDS SUMMARY | 2024-09-03 16:38 | XMS_ITS | Encounter Summary ---
Author Organization [facility] Address [address] [place] [address] Care Team Providers Care Directional Bore Operator Name Role Phone Nurys Guthrie MD Primary Care Provider Nancya Garrett Gar DO Primary Care Provider Agnieszka vailable Encounter Details Date Type Department Care Team Description 09/04/2019 Cotton Breeder Report Medical Records [address] [place] [address] Geoff Guerra MD Social History Tobacco Use Types Packs/Day Years Used Date Smoking Tobacco: Every Day Cigarettes 1.5 30 Smokeless Tobacco: Never Alcohol Use Standard Drinks/Week Comments Yes 0 (1 standard drink = 0.6 oz pur e alcohol) once a month 1 beer Sex Assigned at Date Recorded Not on file documented as of this encounter Plan of Treatment Not on file documented as of this encounter Visit Diagnoses Not on filedocumented in this encounter Care Teams Directional Bore Operator Relationship Specialty Start Date End Date Nurys Guthrie MD PCP - General Internal Medicine 05/22/15 01/05/21 Garrett Avery DO PCP - General Internal Medicine 01/06/21 documented as of this encounter
--- OUTSIDE RECORDS SUMMARY | 2024-09-03 16:38 | XMS_ITS | Encounter Summary ---
Author Organization [facility] Address [address] [place] [address] Care Team Providers Care Electronics Detail Draftsperson Name Role Phone Nurys Guthrie MD Primary Care Provider Garrett Solorzano DO Primary Care Provider Agnieszka vailable Encounter Details Date Type Department Care Team Description 09/09/2020 Ironer Sock Report Medical Records [address] [place] [address] Geoff Guerra MD Social History Tobacco Use Types Packs/Day Years Used Date Smoking Tobacco: Every Day Cigarettes 1.5 30 Started: 09/12/1970 Smokeless Tobacco: Never Comments:down to 2 a day Alcohol Use Standard Drinks/Week Comments Yes 0 (1 standard drink = 0.6 oz pur e alcohol) once a month 1 beer Sex Assigned at Date Recorded Not on file documented as of this encounter Plan of Treatment Not on file documented as of this encounter Visit Diagnoses Not on filedocumented in this encounter Care Teams Electronics Detail Draftsperson Relationship Specialty Start Date End Date Nurys Guthrie MD PCP - General Internal Medicine 05/22/15 01/05/21 Garrett Avery DO PCP - General Internal Medicine 01/06/21 documented as of this encounter
--- OUTSIDE RECORDS SUMMARY | 2024-09-03 16:38 | XMS_ITS | Encounter Summary ---
Author Organization [facility] Address [address] [place] [address] Care Team Providers Care Physical Therapy Technician Name Role Phone Sandoval Quezada MD Primary Care Provider Unavailab Arnold Bobo MD Primary Care Provider Unavail able Nurys Guthrie MD Primary Care Provider Unavaila ble Garrett Avery DO Primary Care Provider Agnieszka vailable Encounter Details Date Type Department Care Team Description 05/30/2013 DOT Physical Forms Medical Records [address] [place] [id number] Abstract, Provider Social History Tobacco Use Types Packs/Day Years Used Date Smoking Tobacco: Every Day Cigarettes 2 30 Alcohol Use Standard Drinks/Week Comments Yes 0 (1 standard drink = 0.6 oz pur e alcohol) socially Sex Assigned at Date Recorded Not on file documented as of this encounter Plan of Treatment Not on file documented as of this encounter Visit Diagnoses Not on filedocumented in this encounter Care Teams Physical Therapy Technician Relationship Specialty Start Date End Date Sandoval Quezada MD PCP - General Internal Medicine 05/17/13 07/10/14 Arnold Quezada MD PCP - General Internal Medicine 04/04/15 05/21/15 Nurys Guthrie MD PCP - General Internal Medicine 05/22/15 01/05/21 Garrett Avery DO PCP - General Internal Medicine 01/06/21 documented as of this encounter
--- OUTSIDE RECORDS SUMMARY | 2024-09-03 16:38 | XMS_ITS | Encounter Summary ---
Author Organization [facility] Address [address] [place] [address] Care Team Providers Care Nutrition Director Name Role Phone Nicole Oliver MD Primary Care Provider Sandoval Spence MD Primary Care Provider Unavailab Arnold Bobo MD Primary Care Provider Unavail able Nurys Guthrie MD Primary Care Provider Unavaila Garrett Gar DO Primary Care Provider Agnieszka vailable Encounter Details Date Type Department Care Team Description 06/16/2011 Release of Information Medical Records [address] [place] [address] Abstract, Provider Social History Tobacco Use Types Packs/Day Years Used Date Smoking Tobacco: Every Day Cigarettes 2 30 Alcohol Use Standard Drinks/Week Comments Not Asked 0 (1 standard drink = 0.6 oz pur e alcohol) Sex Assigned at Date Recorded Not on file documented as of this encounter Plan of Treatment Not on file documented as of this encounter Visit Diagnoses Not on filedocumented in this encounter Care Teams Nutrition Director Relationship Specialty Start Date End Date Nicole Oliver MD PCP - General Internal Medicine 05/05/11 05/16/13 Sandoval Quezada MD PCP - General Internal Medicine 05/17/13 07/10/14 Arnold Quezada MD PCP - General Internal Medicine 04/04/15 05/21/15 Nurys Guthrie MD PCP - General Internal Medicine 05/22/15 01/05/21 Garrett Avery DO PCP - General Internal Medicine 01/06/21 documented as of this encounter
--- OUTSIDE RECORDS SUMMARY | 2024-09-03 16:38 | XMS_ITS | Encounter Summary ---
Author Organization [facility] Address [address] [place] [address] Care Team Providers Care Director Of Corporate Real Estate Name Role Phone Nicole Oliver MD Primary Care Provider Sandoval Spence MD Primary Care Provider Unavailab Arnold Bobo MD Primary Care Provider Unavail able Nurys Guthrie MD Primary Care Provider Unavaila Garrett Gar DO Primary Care Provider Agnieszka vailable Encounter Details Date Type Department Care Team Description 08/17/2011 Abstract Medicine/Pediatrics - [address] [phone] Nicole Oliver MD Social History Tobacco Use Types Packs/Day [...] on filedocumented in this encounter Care Teams Director Of Corporate Real Estate Relationship Specialty Start Date End Date Nicole Olvier MD PCP - General Internal Medicine 05/05/11 05/16/13 Sandoval Quezada MD PCP - General Internal Medicine 05/17/13 07/10/14 Arnold Quezada MD PCP - General Internal Medicine 04/04/15 05/21/15 Nurys Guthrie MD PCP - General Internal Medicine 05/22/15 01/05/21 Garrett Avery DO PCP - General Internal Medicine 01/06/21 documented as of this encounter
--- OUTSIDE RECORDS SUMMARY | 2024-09-03 16:38 | XMS_ITS | Encounter Summary ---
Author Organization [facility] Address [address] [place] [address] Care Team Providers Care Excellence Manager Name Role Phone Nurys Guthrie MD Primary Care Provider Garrett Solorzano DO Primary Care Provider Agnieszka vailable Encounter Details Date Type Department Care Team Description 04/25/2017 Boil Off Worker Report Medical Records [address] [place] [address] Anjana Herron PA-C [address] [phone] Social History Tobacco Use Types Packs/Day Years [...] on filedocumented in this encounter Care Teams Excellence Manager Relationship Specialty Start Date End Date Nurys Guthrie MD PCP - General Internal Medicine 05/22/15 01/05/21 Garrett Avery DO PCP - General Internal Medicine 01/06/21 documented as of this encounter
--- OUTSIDE RECORDS SUMMARY | 2024-09-03 16:38 | XMS_ITS | Clinical Summary ---
Author Organization [facility] Address [address] [place] [address] Care Team Providers Care Craft Artist Name Role Phone Garrett Avery DO Primary Care Provider Agnieszka vailable Allergies No known active allergies Medications Medication Sig Dispensed Refills Start Date End Date Status polyethylene glycol (MIRALAX) powder Take 17 g by mouth daily. 527 g 3 08/21/2019 Active atorvastatin (LIPITOR) 40 MG tablet Take 1 tablet by mouth daily. 90 tablet 2 03/12/2021 Active Magnesium 500 MG Tab Take 500 mg by mouth daily. 0 Active magnesium oxide (MAG-OX) 400 MG tablet Take 400 mg by mouth. 0 Active Active Problems Problem Noted Date Lung nodules 04/28/2021 Overview: Followed by Madison Morelos Severe obesity with body mass index (BMI ) of 35.0 to 39.9 with comorbidity 04/28/2021 Diabetes mellitus type 2, controlled, wi thout complications 09/16/2020 Overview: 03/2021 Lab Results Component Value Date HGBA1C 6.7 03/12/2021 History of renal carcinoma 08/27/2019 Overview: Left, excised 10/09/2019 Hypercholesteremia 08/17/2011 COPD (chronic obstructive pulmonary dise ase) 08/17/2011 Tobacco use 08/17/2011 Immunizations Name Administration Dates Next Due COVID-19 (Pfizer) 07/23/2021,10/30/2020,10/08/19 21 Influenza (> 6 Months) 09/03/2016,2014,05/23/2014,05/28,06/15/2011 Influenza Vaccine-preservati ve Free-quadrivalent 4 Years 05/01/2019 Influenza Vaccine-quadrivale nt 4 Years Plus 04/06/2018,03/28/2017 Influenza vaccine high dose age 65 and over 03/27/2021 Pneumoccoccal(Adult) Polysac charide PPSV23 10/29/2009 Tdap 06/15/2011 Family History Relation Name Status Comments Brother 1 Alive HTN Brother 2 Alive healthy Daughter 1 Alive healthy Daughter 2 Alive seizures, migra ine Father (Age 89) unk Mother Alive healthy Sister (Age 14) renal canc er Social History Tobacco Use Types Packs/Day Years Used Date Smoking Tobacco: Former Cigarettes 1.5 30 S tarted: 09/12/1970 Smokeless Tobacco: Never Tobacco Cessation:Ready to Q uit: No Comments:quit in September 2019 Alcohol Use Standard Drinks/Week Comments Yes 0 (1 standard drink = 0.6 oz pur e alcohol) once a month 1 beer Sex Assigned at Date Recorded Not on file Last Filed Vital Signs Vital Sign Reading Time Taken Comments Blood Pressure 155/110 04/24/2021 9:04 AM EDT Pulse 65 04/24/2021 9:04 AM EDT Temperature 35.9 ??C (96.7 ??F) 04/24/2021 9:04 AM ED T Respiratory Rate 15 03/27/2021 10:13 AM EDT Oxygen Saturation 98% 03/27/2021 10:13 AM EDT Inhaled Oxygen Concentration - - Weight 133.8 kg (295 lb) 05/11/2021 1:18 PM EDT Height 183 cm (6' 0.05 ) 05/11/2021 1:18 PM EDT Body Mass Index 39.95 05/11/2021 1:18 PM EDT Plan of Treatment Health Maintenance Due Date Last Done Comments DIABETES: ANNUAL EYE EXAM 09/12/1973 DIABETES: ANNUAL FOOT EXAM 09/12/1973 DIABETES: ANNUAL URINE PROTE IN TEST (MICROALBUMIN) 09/12/1973 SHINGLES VACCINE (1 of 2) 09/12/2005 PNEUMOCOCCAL VACCINE (2 - PCV) 09/12/2020 10/29/2009 DIABETES: BLOOD SUGAR CONTRO L TEST (HGBA1C) 06/11/2021 03/12/2021, 09/15/2020, 04/28/2019, Additional history exists DTAP/TDAP/TD (2 - Td or Tdap) 06/15/2021 06/15/2011 DIABETES/HEART DISEASE: ULI AL CHOLESTEROL (LDL) 09/15/2021 09/15/2020, 04/28/2019, 11/03/2018, Additional history exists FALL RISK ASSESSMENT 03/27/2022 03/27/2021 Lung Cancer Screening (Low D ose CT) 04/27/2022 04/27/2021, 04/26/2020, 04/26/2019, Additional history exists DEPRESSION SCREEN 08/31/2022 08/31/2021 (Completed) COLON CANCER SCREENING 09/07/2023 09/07/2013 Covid-19 Vaccine (2022- 4 season) 2024 07/23/2021, 10/30/2020, 10/07/2020 INFLUENZA (#1) 2024 03/27/2021, 04/11 (Completed), 05/01/2019, Additional history exists BMI CHECK/ADVISE 07/11/2024 05/11/2021, , 03/17/2021, Additional history exists HEPATITIS C SCREENING Completed 04/15/2015 Care Teams Craft Artist Relationship Specialty Start Date End Date Garrett Avery DO PCP - General Internal Medicine 01/06/21
--- OUTSIDE RECORDS SUMMARY | 2024-09-03 16:38 | XMS_ITS | Encounter Summary ---
Author Organization [facility] Address [address] [place] [address] Care Team Providers Care Intake Specialist Name Role Phone Nurys Guthrie MD Primary Care Provider Garrett Solorzano DO Primary Care Provider Agnieszka vailable Encounter Details Date Type Department Care Team Description 09/24/2017 Pt. Non Urgent Medical Question Medicine/Pediatrics - [address] [address] Nurys Guthrie MD Social History Tobacco Use Types Packs/Day Years Used Date Smoking Tobacco: Every Day Cigarettes 1.5 30 Smokeless Tobacco: Never Alcohol Use Standard Drinks/Week Comments Yes 0 (1 standard drink = 0.6 oz pur e alcohol) once a month 1 beer Sex Assigned at Date Recorded Not on file documented as of this encounter Progress Notes * Sophia RuckerPKj - 09/26/2017 9:05 AM EDTFrom: Arnold Poole To: Nurys Guthrie MD Sent: 09/24/2017 8:11 AM EDT Subject: renew prescription do I need to come in for blood work or an office visit ? documented in this encounter Plan of Treatment Not on file documented as of this encounter Visit Diagnoses Not on filedocumented in this encounter Care Teams Intake Specialist Relationship Specialty Start Date End Date Nurys Guthrie MD PCP - General Internal Medicine 05/22/15 01/05/21 Avery, Garrett, DO PCP - General Internal Medicine 01/06/21 documented as of this encounter
--- OUTSIDE RECORDS SUMMARY | 2024-09-03 16:38 | XMS_ITS | Encounter Summary ---
Author Organization [facility] Address [address] [place] [address] Care Team Providers Care Pharmacy Technician Name Role Phone Nurys Guthrie MD Primary Care Provider Garrett Solorzano DO Primary Care Provider Agnieszka vailable Encounter Details Date Type Department Care Team Description 02/20/2020 Student Records Specialist Report Medical Records [address] [place] [address] [facility] Social History Tobacco Use Types Packs/Day Years [...] on filedocumented in this encounter Care Teams Pharmacy Technician Relationship Specialty Start Date End Date Nurys Guthrie MD PCP - General Internal Medicine 05/22/15 01/05/21 Garrett Avery DO PCP - General Internal Medicine 01/06/21 documented as of this encounter
--- OUTSIDE RECORDS SUMMARY | 2024-09-03 16:38 | XMS_ITS | Encounter Summary ---
Author Organization [facility] Address [address] [place] [address] Care Team Providers Care Whizzer Operator Name Role Phone Garrett Avery DO Primary Care Provider Agnieszka vailable Reason for Visit * Reason Onset Date Comments Internal Combustion Engine Subassembler Feedback 01/06/2021 Gen Surgery Encounter Details Date Type Department Care Team Description 01/06/2021 Telephone Medicine/Pediatrics - [address] [address] Nurys Guthrie MD Internal Combustion Engine Subassembler Feedback (Gen Surgery) Social History Tobacco Use Types Packs/Day Years Used Date Smoking Tobacco: Every Day Cigarettes 1.5 30 Started: 09/12/1970 Smokeless Tobacco: Never Comments:down to 2 a day Alcohol Use Standard Drinks/Week Comments Yes 0 (1 standard drink = 0.6 oz pur e alcohol) once a month 1 beer Sex Assigned at Date Recorded Not on file documented as of this encounter Miscellaneous Notes * Telephone Encounter - Shena Pelayo Rn - 01/06/2021 9:37 AM EDT Spoke to pt. He had cancer surgery and this was on hold, Had kidney surgery,for a tumor on the kidney Sometimes he is uncomfortable, He has to chose a new pcp, He will call back and book appt with Adriana after choosing a new pcp * Telephone Encounter - Gerry Ahuja - 01/06/2021 9:25 AM EDT Please review this patients new referral request. The referral has been pended. Please complete thefollowing: If approved> sign order If denied>please give instructions and route to your practice nursing pool. Practice nurse should inform referrals and the patient if denied. documented in this encounter Plan of Treatment Not on file documented as of this encounter Visit Diagnoses Not on filedocumented in this encounter Care Teams Whizzer Operator Relationship Specialty Start Date End Date Garrett Avery DO PCP - General Internal Medicine 01/06/21 documented as of this encounter
--- OUTSIDE RECORDS SUMMARY | 2024-09-03 16:38 | XMS_ITS | Encounter Summary ---
Author Organization [facility] Address [address] [place] [address] Care Team Providers Care Dye Range Feeder Name Role Phone Garrett Avery DO Primary Care Provider Agnieszka vailable Encounter Details Date Type Department Care Team Description 08/21/2021 SCAN [facility] Medical [facility] [address] [phone] Jeyson Whelan DPM [address] [address] Social History Tobacco Use Types Packs/Day Years Used Date Smoking Tobacco: Former Cigarettes 1.5 30 S tarted: 09/12/1970 Smokeless Tobacco: Never Comments:quit in September 2019 Alcohol Use Standard Drinks/Week Comments Yes 0 (1 standard drink = 0.6 oz pur e alcohol) once a month 1 beer Sex Assigned at Date Recorded Not on file documented as of this encounter Plan of Treatment Not on file documented as of this encounter Visit Diagnoses Not on filedocumented in this encounter Care Teams Dye Range Feeder Relationship Specialty Start Date End Date Garrett Avery DO PCP - General Internal Medicine 01/06/21 documented as of this encounter
--- OUTSIDE RECORDS SUMMARY | 2024-09-03 16:38 | XMS_ITS | Clinical Summary ---
Author Organization [facility] Address [address] [place] [address] Phone Care Team Providers Care Front Office Associate Name Role Phone Nurys Doyle MD Primary Care Provider [phone] Allergies No known active allergies Medications atorvastatin (LIPITOR) 20 mg tablet Take 20 mg by mouth daily. Active Eliquis 5 mg tablet See Instructions, 2 tablet By Mouth 2 times a day x 13 doses (first dose given around 12 PM on 02/18/2024) followed by 1 tablet twice a day for a total duration of 6 months, # 60 tablet, 3 Refills, Maintenance, 02/18/24 11:49:00 [facility]... 4 Active lisinopriL (PRINIVIL,ZESTR IL) 10 mg tablet Take 1 tablet (10 mg total) by mouth. 3 Active Ozempic 2 mg/dose (8 mg/3 mL) injection pen 4 Active gabapentin (NEURONTIN) 300 mg capsule 2 capsules (600 mg total) 3 (three) times a day. 4 Active cyanocobalamin (VITAMIN B-12) 1,000 mcg tablet Take 1 tablet (1,000 mcg total) by mouth 1 (one) time each day. Active Active Problems Problem Noted Date Diagnosed Date Renal cell carcinoma 04/20/2022 Immunizations Name Administration Dates Next Due Pfizer SARS-CoV-2 COVID-19, mRNA, LNP-S, preservative free 07/23/2021,06/11/2021,10/30/2020,2020 Surgical History Surgery Date Site/Laterality Comments HERNIA REPAIR PROCEDURE:HERNIA REPAIR Medical History Medical History Date Comments Diabetes mellitus (CMS/HCC) DX:D iabetes mellitus (HCC) Hyperlipemia DX:Hyperlipemia Family History Medical History Relation Name Comments Cancer Brother Cancer Sister Relation Name Status Comments Brother Sister Social History Tobacco Use Types Packs/Day Years Used Date Smoking Tobacco: Former Cigarettes Alcohol Use Standard Drinks/Week Comments Yes 0 (1 standard drink = 0.6 oz pur e alcohol) Occasionally Sex and Gender Information Value Date Recorded Sex Assigned at Not on file Legal Sex Male 11:34 AM EST Gender Identity Not on file Sexual Orientation Not on file Obstetrics History Last Filed Vital Signs Vital Sign Reading Time Taken Comments Blood Pressure 119/66 05/28/2024 10:07 AM EST Pulse 74 05/28/2024 10:07 AM EST Temperature 36.8 ??C (98.3 ??F) 05/28/2024 10:[address] Respiratory Rate - - Oxygen Saturation 99% 05/28/2024 10:07 AM EST Inhaled Oxygen Concentration - - Weight 134 kg (296 lb) 05/28/2024 10:07 AM EST Height 185.4 cm (6' 1 ) 05/28/2024 10:07 AM EST Body Mass Index 39.05 05/28/2024 10:07 AM EST Plan of Treatment Upcoming Encounters Date Type Department Care Team (Late st Contact Info) Description 06/03/2025 10:00 AM EST Office Visit [facility] Hematology Oncology [address] [place] [phone] Mary Ware, DO [address] [place] [address] Health Maintenance Due Date Last Done Comments Diabetes: Annual Foot Exam 09/12/1965 Diabetes: Annual Retina Eye Exam 09/12/1965 Zoster Vaccines (1 of 2) 09/12/1974 Pneumococcal Vaccine: 50+ Years (2 of 2 - PCV) 10/29/2010 10/29/2009 RSV Immunization Patients 60+ Years Old (1 - Risk 60-74 years 1-dose series) 2015 DTaP,Tdap,and Td Vaccines (2 - Td or Tdap) 06/15/2021 06/15/2011 Abdominal Aortic Aneurysm (AAA) Screen 06/17/2022 Cholesterol Screening (Lipid Panel) 06/17/2022 Colorectal Cancer Screening: Colonoscopy 06/17/2022 Depression Screening 06/17/2022 Diabetes: Annual Urine Albumin-Creatinine Ratio (uACR) 06/17/2022 Diabetes: Blood Sugar Control Test (HGBA1C) 06/17/2022 Falls Risk Assessment 06/17/2022 Hepatitis C Screening 06/17/2022 Medicare Annual Wellness Visit 06/17/2022 Social Influencers of Health Screening 06/17/2022 COVID-19 Vaccine ( season) 2024 04/30/2023, 05/17/2022, 07/23/2021, Additional history exists Influenza Vaccine (#1) 2024 , 04/29/2022, 03/27/2021, Additional history exists Diabetes: Annual GFR (Glomerular Filtration Rate) 05/17/2025 05/17/2024 Hypertension/CHF/CAD Annual BMP Blood Test 05/17/2025 05/17/2024 HIB Vaccines Aged Out No longer eligi ble based on patient's age to complete this topic HPV Vaccines Aged Out No longer eligi ble based on patient's age to complete this topic Hepatitis A Vaccines Aged Out No long er eligible based on patient's age to complete this topic Hepatitis B Vaccines Aged Out No long er eligible based on patient's age to complete this topic IPV Vaccines Aged Out No longer eligi ble based on patient's age to complete this topic MMR Vaccines Aged Out No longer eligi ble based on patient's age to complete this topic Meningococcal ACWY Vaccine Aged Out N o longer eligible based on patient's age to complete this topic Meningococcal B Vacine Aged Out No lo nger eligible based on patient's age to complete this topic RSV Immunization Patients Under 20 months Aged Out No longer eligible based on patient's age to complete this topic Varicella Vaccines Aged Out No longer eligible based on patient's age to complete this topic Procedures Procedure Name Priority Date/Time Associated Diagnosis Comments COMPREHENSIVE METABOLIC PANEL Routine 05/17/2024 9:56 AM EST Malignant neoplasm of left kidney, except renal pelvis (CMS/HCC) from Last 3 Months or Most Recently Relevant to Health Maintenance Results * Comprehensive metabolic panel (05/17/2024 9:56 AM EST) Sodium 134 133 - 145 mmol/L LAB CHEMISTRY METHOD 05/17/2024 11:27 AM [facility] Potassium 4.8 3.5 - 5.5 mmol/L LAB CHEMISTRY METHOD 05/17/2024 11:27 AM [facility] Chloride 104 96 - 110 mmol/L LAB CHEMISTRY METHOD 05/17/2024 11:27 AM [facility] CO2 26 21 - 32 mmol/L LAB CHEMISTRY METHOD 05/17/2024 11:27 AM [facility] Anion Gap 4 3 - 11 LAB CHEMISTRY METHOD 05/17/2024 11:27 AM [facility] Glucose 96 70 - 100 mg/dL LAB CHEMISTRY METHOD 05/17/2024 11:27 AM [facility] BUN 17 5 - 25 mg/dL LAB CHEMISTRY METHOD 05/17/2024 11:27 AM [facility] Creatinine 1.06 0.70 - 1.30 mg/dL LAB CHEMISTRY METHOD 05/17/2024 11:27 AM [facility] eGFR 76 >=60 mL/min/1. 73m2 LAB CHEMISTRY METHOD 05/17/2024 11:27 AM [facility] Comment:Calculation based on the??Chronic Kidney Disease Epidemiology Collaboration (CKD-EPI) equation refit??without adjustment for race. BUN/Creatinine Ratio 16.0 LAB CHEMISTRY METHOD 05/17/2024 11:27 AM [facility] Calcium 9.7 8.5 - 10.5 mg/dL LAB CHEMISTRY METHOD 05/17/2024 11:27 AM [facility] AST (SGOT) 24 10 - 42 unit/L LAB CHEMISTRY METHOD 05/17/2024 11:27 AM [facility] ALT (SGPT) 36 10 - 60 unit/L LAB CHEMISTRY METHOD 05/17/2024 11:27 AM EST [facility] Alkaline Phosphatase 62 42 - 121 unit/L LAB CHEMISTRY METHOD 05/17/2024 11:27 AM EST [facility] Total Protein 6.9 6.0 - 8.0 g/dL LAB CHEMISTRY METHOD 05/17/2024 11:27 AM EST [facility] Albumin 3.8 3.2 - 5.0 g/dL LAB CHEMISTRY METHOD 05/17/2024 11:27 AM EST [facility] Total Bilirubin 0.5 0.0 - 1.4 mg/dL LAB CHEMISTRY METHOD 05/17/2024 11:27 AM [facility] Blood Venous blood specimen / Unknown Venipuncture / Unknown 05/17/2024 9:56 AM EST 05/17/2024 11:07 AM EST us Mary Ware DO LAB BLOOD ORDERABLES Final Result [facility] [address] [place] [address], from Last 3 Months or Most Recently Relevant to Health Maintenance Insurance MEDICARE [facility] Care Teams Front Office Associate Relationship Specialty Start Date End Date Nurys Doyle MD PCP - General Internal Medicine 02/29/24
--- OUTSIDE RECORDS SUMMARY | 2024-09-03 16:38 | XMS_ITS | Encounter Summary ---
Author Organization [facility] Address [address] [place] [address] Care Team Providers Care Resident Inspector Name Role Phone Nurys Guthrie MD Primary Care Provider Garrett Solorzano DO Primary Care Provider Agnieszka vailable Encounter Details Date Type Department Care Team Description 09/12/2019 Pt. Non Urgent Medical Question Medicine/Pediatrics - [address] [phone] Nurys Guthrie MD Social History Tobacco Use Types Packs/Day Years Used Date Smoking Tobacco: Every Day Cigarettes 1.5 30 Smokeless Tobacco: Never Alcohol Use Standard Drinks/Week Comments Yes 0 (1 standard drink = 0.6 oz pur e alcohol) once a month 1 beer Sex Assigned at Date Recorded Not on file documented as of this encounter Progress Notes * Shena Pelayo Rn - 2019 2:59 PM ESTFrom: Arnold Poole To: Nuyrs Guthrie MD Sent: 09/12/2019 7:33 PM EST Subject: MRI Dr Guerra is asking for the mri disc . Do I need to pick it up ? My appt with him is Sep 18. documented in this encounter Plan of Treatment Not on file documented as of this encounter Visit Diagnoses Not on filedocumented in this encounter Care Teams Resident Inspector Relationship Specialty Start Date End Date Nurys Guthrie MD PCP - General Internal Medicine 05/22/15 01/05/21 Garrett Avery DO PCP - General Internal Medicine 01/06/21 documented as of this encounter
--- OUTSIDE RECORDS SUMMARY | 2024-09-03 16:38 | XMS_ITS | Encounter Summary ---
Author Organization [facility] Address [address] [place] [address] Care Team Providers Care Transportation Design Engineer Name Role Phone Garrett Avery DO Primary Care Provider Agnieszka vailable Encounter Details Date Type Department Care Team Description [facility]/06[facility] [address] [place] [address] Md Kavitha Social History Tobacco Use Types Packs/Day Years [...] on filedocumented in this encounter Care Teams Transportation Design Engineer Relationship Specialty Start Date End Date Garrett Avery DO PCP - General Internal Medicine 01/06/21 documented as of this encounter
--- OUTSIDE RECORDS SUMMARY | 2024-09-03 16:39 | XMS_ITS | Clinical Summary ---
Author Organization [facility] Address [address] [place] [address] Care Team Providers Care Healthcare Project Manager Name Role Phone Nurys Doyle MD Primary Care Provider [phone] Allergies No known active allergies Medications Medication Sig Dispensed Refills Start Date End Date Status atorvastatin (LIPITOR) tablet 20 mg Take 20 mg by mouth daily. 0 Active cetirizine (ZyrTEC) 10 MG tablet Take 10 mg by mouth daily. 0 Active Active Problems Problem Noted Date Diagnosed Date Renal cell carcinoma 04/20/2022 Cancer Staging:Pathologic:Stage III(pT3a, pNX, cM0) - Signed by Mary Ware DO on 11/02/2022 Family History Medical History Relation Name Comments Cancer Brother Cancer Sister Relation Name Status Comments Brother Sister Social History Tobacco Use Types Packs/Day Years Used Date Smoking Tobacco: Never Assessed Sex and Gender Information Value Date Recorded Sex Assigned at Not on file Gender Identity Not on file Sexual Orientation Not on file Job Start Date Occupation Industry Not on file Not on file Not on file Last Filed Vital Signs Vital Sign Reading Time Taken Comments Blood Pressure 145/81 10/26/2022 9:08 AM EDT Pulse 72 10/26/2022 9:08 AM EDT Temperature 36.8 ??C (98.3 ??F) 10/26/2022 9:08 AM ED T Respiratory Rate - - Oxygen Saturation 95% 10/26/2022 9:08 AM EDT Inhaled Oxygen Concentration - - Weight 137.3 kg (302 lb 12.8 oz) 10/26/2022 9:08 AM EDT Height 185.4 cm (6' 1 ) 10/26/2022 9:08 AM EDT Body Mass Index 39.95 10/26/2022 9:08 AM EDT Plan of Treatment Health Maintenance Due Date Last Done Comments Hepatitis C Screening 1955 Depression Screening 1967 Preventative Health Evaluation 09/12/1973 Shingrix-Zoster Vaccine (1 of 2) 09/12/1974 Colon Cancer Screening (Colonoscopy) 09/12/2000 Pneumococcal Vaccine (2 of 2 - PCV) 10/29/2010 10/29/2009 Fall Risk Assessment 09/12/2020 DTap / Tdap / Td (2 - Td or Tdap) 06/15/2021 06/15/2011 COVID-19 Vaccine ( season) 2024 07/23/2021, 06/11/2021, 10/30/2020, Additional history exists Influenza Vaccine (#1) 2024 , 03/27/2021, 03/27/2021, Additional history exists RSV Adult > 60+ Yrs or (1 - 1-dose 75+ series) 09/12/2030 Hepatitis B Vaccines Aged Out No long er eligible based on patient's age to complete this topic RSV Ped < 20 months Aged Out No longe r eligible based on patient's age to complete this topic Care Teams Healthcare Project Manager Relationship Specialty Start Date End Date Nurys Doyle MD PCP - General Internal Medicine 04/25/20
--- OUTSIDE RECORDS SUMMARY | 2024-09-03 16:39 | XMS_ITS | Encounter Summary ---
Author Organization [facility] Address [address] [place] [address] Care Team Providers Care Surveillance Inspector Name Role Phone Garrett Avery DO Primary Care Provider Agnieszka vailable Reason for Visit * Reason Onset Date Comments Pre-op Needed 03/19/2021 Encounter Details Date Type Department Care Team Description 03/19/2021 Telephone General Surgery - [place] [address] [facility] [address] [place] [phone] Lise Dillard MD 175 [facility] [address] [place] [address] Pre-op Needed Social History Tobacco Use Types Packs/Day Years Used Date Smoking Tobacco: Former Cigarettes 1.5 30 S tarted: 09/12/1970 Smokeless Tobacco: Never Comments:quit in September 2019 Alcohol Use Standard Drinks/Week Comments Yes 0 (1 standard drink = 0.6 oz pur e alcohol) once a month 1 beer Sex Assigned at Date Recorded Not on file COVID-19 Exposure Response Date Recorded In the last month, have you been in contact with someone who was confirmed or suspected to have Coronavirus / COVID-19? No / Unsure 03/17/2021 10:14 AM EDT documented as of this encounter Miscellaneous Notes * Telephone Encounter - Tila Ann Marie - 03/19/2021 7:23 PM EDT Date of surgery: 04/10/2021 What surgery is patient having (gall bladder, cataract, appendix, etc...)?: Open umbilical hernia repair Surgeon's name: Lise Dillard MD Office phone number of surgeon: [phone] Fax # for surgeons office: [phone] (Required) Where is surgery being performed? [facility] Diagnosis/problem for surgery: Umbilical hernia Is an EKG required for the pre-op workup? YES PCP: Garrett Avery DO Did you verify that the insurance below is correct? YES Patients insurance: Payor: ROBBY/PPO POS / Plan: [employer] [facility] ELECT $20 / Product Type: PPO [id number] documented in this encounter Plan of Treatment Not on file documented as of this encounter Visit Diagnoses Not on filedocumented in this encounter Care Teams Surveillance Inspector Relationship Specialty Start Date End Date Garrett Avery DO PCP - General Internal Medicine 01/06/21 documented as of this encounter
--- OUTSIDE RECORDS SUMMARY | 2024-09-03 16:39 | XMS_ITS | Encounter Summary ---
Author Organization [facility] Address [address] [place] [address] Care Team Providers Care Weight And Balance Control Agent Name Role Phone Garrett Avery DO Primary Care Provider Agnieszka vailable Encounter Details Date Type Department Care Team Description 04/07/2021 Business Doc Medical Records [address] [place] [address] Abstract, Provider Social History Tobacco Use Types [...] have Coronavirus / COVID-19? No / Unsure 03/30/2021 12:50 PM EDT documented as of this encounter Plan of Treatment Not on file documented as of this encounter Visit Diagnoses Not on filedocumented in this encounter Care Teams Weight And Balance Control Agent Relationship Specialty Start Date End Date Garrett Avery DO PCP - General Internal Medicine 01/06/21 documented as of this encounter
--- OUTSIDE RECORDS SUMMARY | 2024-09-03 16:39 | XMS_ITS | Encounter Summary ---
Author Organization [facility] Address [address] [place] [address] Care Team Providers Care Special Forces Medical Sergeant Name Role Phone Garrett Avery DO Primary Care Provider Agnieszka vailable Encounter Details Date Type Department Care Team Description 04/27/2021 Shim Plug Cutter Report Medical Records [address] [place], [place] [id number] [place] [address] Social History Tobacco Use Types Packs/Day Years [...] have Coronavirus / COVID-19? No / Unsure 04/24/2021 9:02 AM EDT documented as of this encounter Plan of Treatment Not on file documented as of this encounter Visit Diagnoses Not on filedocumented in this encounter Care Teams Special Forces Medical Sergeant Relationship Specialty Start Date End Date Garrett Avery DO PCP - General Internal Medicine 01/06/21 documented as of this encounter
--- OUTSIDE RECORDS SUMMARY | 2024-09-03 16:39 | XMS_ITS | Encounter Summary ---
Author Organization [facility] Address [address] [place] [address] Care Team Providers Care Paper Machine Backtender Name Role Phone Nurys Guthrie MD Primary Care Provider Garrett Solorzano DO Primary Care Provider Agnieszka vailable Encounter Details Date Type Department Care Team Description 04/26/2020 Technical Assistant Report Medical Records [address] [place] [address] [facility] [address] [place] [address] Social History Tobacco Use Types Packs/Day Years [...] on filedocumented in this encounter Care Teams Paper Machine Backtender Relationship Specialty Start Date End Date Nurys Guthrie MD PCP - General Internal Medicine 05/22/15 01/05/21 Garrett Avery DO PCP - General Internal Medicine 01/06/21 documented as of this encounter
[2024-09-04 18:33] LABS: Lyme Blot 1.99 index
[2024-09-05 13:28] LABS: Lyme Abs Screen POSITIVE
[2024-09-05 22:43] LABS: 18 KD (IgG) Band NON-REACTIVE; 23 KD (IgG) Band NON-REACTIVE; 23 KD (IgM) Band NON-REACTIVE; 28 KD (IgG) Band NON-REACTIVE; 30 KD (IgG) Band NON-REACTIVE; 39 KD (IgM) Band NON-REACTIVE; 39KD (IgG) Band NON-REACTIVE; 41 KD (IgM) Band REACTIVE; 41KD (IgG) Band NON-REACTIVE; 45 KD (IgG) Band NON-REACTIVE; 58 KD (IgG) Band NON-REACTIVE; 66 KD (IgG) Band NON-REACTIVE; 93 KD (IgG) Band NON-REACTIVE; Lyme IgG Blot Interp NEGATIVE (NEGATIVE); Lyme IgM Blot Interp NEGATIVE (NEGATIVE)
== END 2024-09-03 14:26 | disposition home or self-care (01) ==
LOC: HO.WFDLDS 14:25
PROVIDERS: Visit Provider Physician Assistant
DX: A69.20 Lyme disease, unspecified (principal)
CPT/HCPCS: 36415; 86617; 86618

== ENCOUNTER 2024-11-01 08:40 | Outpatient (AMB) | payer MEDICARE, OTHER, SELFPAY ==
--- NOTE | 2024-11-01 08:47 | MHC.PC.OV ---
Vital Signs 11/01/24 08:51 Height 5 ft 11.65 in Weight 293 lb 4 oz BMI 40.2 BP 108/62 Blood Pressure Location Rt brachial Position Sitting Respiration 16 Pulse 69 Pulse Source Pulse Oximeter Pulse Oximetry (%) 97 Oxygen Delivery Method Room Air Intake Visit Reasons: DM Intake Note: Diabetes follow up. Went to infectious disease and they ruled out lyme disease Re Examiner Required: No Allergies No Known Allergies Allergy (Verified 11/01/24 08:48) Medication List - Last Reconciled 11/01/24 by Shahana Rosado PA-C atorvastatin 40 mg PO DAILY blood sugar diagnostic (FreeStyle Lite Strips) use daily As directed to check blood sugars for diabetes blood-glucose sensor (FreeStyle Kathleen 3 Sensor device) use daily As directed to monitor type 2 diabetes. changed q 14 days blood-glucose,painting department supervisor,cont (FreeStyle Kathleen 3 [place]) Use daily As directed to monitor type 2 diabetes gabapentin 900 mg (3 x 300 mg) PO TID 30 days lancets (FreeStyle Lancets) Use daily As directed to check blood sugar lisinopril 10 mg PO DAILY semaglutide (Ozempic) 2 mg (0.75 mL) subcut QWEEK Tobacco use date assessed: 11/01/24 Dental Screening Dental Screen Date: 01/25/24 Did you have a dental visit in the last 12 months?: No Did you have a dental problem in the last 6 months where you did not have access to dental care?: No Was dental information given to patient?: Patient declined (Has dentures) HPI DM HPI Details Patient is a 69-year-old male who presents today for a follow up. Endo: His A1c today is 5.8. Ozempic 2 mg weekly. CV: No chest pain or shortness a breath. Blood pressure today in the office is 108/62. Compliant with lisinopril 10 mg. He is on atorvastatin 40 mg. Musculoskeletal: Back pain is still present. This is stressing his out. He really does not want to take any pain medications. He is following up with [facility] sports medicine and states that he thinks he is going to finally try a cortisone injection. He has been doing physical therapy without any improvement. He states that when he last saw the spine center they recommended he try a cortisone injection 1st. He does notice that the pain is radiating down both legs at times. The right leg appears to be worse in the left. He does have more persistent numbness at times in the left lower leg. He states sometimes it feels like his feet and lower legs get weak. The gabapentin that he is on for his neuropathy is helpful. ID: He did follow with Infectious Disease for the Lyme and was told that it was fully treated however he obviously still has lingering effects from the Lyme. Vascular: Dr. Alvarez saw him and was told no more eliquis. States that the DVT has resolved. Onc/heme: Follows with Dr. Ware from [facility]. He did have a CT of abdomen and pelvis in May which did not show any evidence of metastatic disease. He does have a partial left nephrectomy as expected. He was also noted to have renal cysts. Last year he had a thyroid nodule which was noted on CT of the ultrasound did show that the thyroid nodule did not require any additional follow up. Urololgy: States he has an upcoming appointment to monitor the renal cysts. colonoscopy: at [facility] in [place]- on ten year plan [facility] Medical History (Updated 11/01/24 @ 09:09 by Shahana Rosado PA-C) Thyroid nodule Severe obesity Right inguinal hernia Newly diagnosed diabetes Multiple nodules of lung History of malignant neoplasm History of malignant neoplasm of kidney Former smoker Change in bowel habit KATHIA on CPAP Type 2 diabetes, controlled, with neuropathy Dyslipidemia HTN (hypertension) Surgical History Hx of hernia repair H/O colonoscopy Social History (Updated 08/02/24 @ 08:32 by Marie Robles CMA) Housing: House Alcohol intake: current Patient Tobacco Use Status: Former Tobacco user Cigarette Packs Per Day: 2 Years Smoked: 40 e-Cigarette/Vaping Use: Never Used service: Yes Current occupational status: retired Cognitive needs: No Hearing needs: Yes (partial hearing loss, tinnitus) Vision needs: No Questionnaire PHQ-9 Over the last 2 weeks, how often have you been bothered by any of the following problems? 1. Little interest or pleasure in doing things: not at all 2. Feeling down, depressed, or hopeless: not at all 3. Trouble falling or staying asleep, or sleeping too much: not at all 4. Feeling tired or having little energy: not at all 5. Poor appetite or overeating: not at all 6. Feeling bad about yourself - or that you are a failure or have let yourself or your family down: not at all 7. Trouble concentrating on things, such as reading the newspaper or watching television: not at all 8. Moving or speaking so slowly that other people could have noticed. Or the opposite - being so fidgety or restless that you have been moving around a lot more than usual: not at all 9. Thoughts that you would be better off or of hurting yourself in some way: not at all Total score: 0 Depression Screening Interpretation: Negative Depression Screening Done: Yes 35641 - PHQ-9 Billing: Yes Source: Developed by Drs. Garrett Marino, Tayla Gallegos, Kirt Rodrigues and colleagues, with an educational diana from [employer]. Thrive Questionnaire Date Thrive assessed: 11/01/24 I am a: Patient What is your living situation today?: I have a steady place to live Within the past 12 months, did the food you bought not last and you didn't have the money to get more?: Never true Within the past 12 months, did you worry whether your food would run out before you got money to buy more?: Never true Do you have trouble paying for medicines?: No Do you have trouble getting transportation to medical appointments?: No Do you have trouble paying your heating and electricity bill?: No Do you have trouble taking care of your child, family member or friend?: No Do you have trouble with day-to-day activities such as bathing, preparing meals, shopping, managing finances, etc.?: No Are you currently unemployed and looking for a job?: No Are you interested in more education?: No Please select the resources that you would like help with: None Currently or been in a relationship where the following occur: No concerns reported THRIVE Score: 0 AUDIT C Alcohol Use Questionnaire (AUDIT-C) 1. How often do you have a drink containing alcohol?: Never 3. How often do you have six or more drinks on one occasion?: Never Total Score: 0 LAYTON-7 AMB Questionnaire LAYTON-7 Date LAYTON - 7 assessed: 11/01/24 Feeling nervous, anxious, or on edge: 0 = Not at all Not being able to stop or control worryin = Not at all Worrying too much about different things: 0 = Not at all Trouble relaxin = Not at all Being so restless that it is hard to sit still: 0 = Not at all Becoming easily annoyed or irritable: 0 = Not at all Feeling afraid as if something awful might happen: 0 = Not at all Total LAYTON-7 score (0-4 normal; 5-9 mild; 10-14 moderate; 15-21 severe): 0 Source: Developed by Drs. Garrett Marino, Tayla Gallegos, Kirt Rodrigues and colleagues, with an educational diana from [employer]. LAYTON-7 Assessment Billing LAYTON-7 Assessment Tool: LAYTON-7 Assessment 90221 Physical exam (Primary Care) Vital Signs: Last Vital Signs Pulse 69 11/01/24 08:51 Resp 16 11/01/24 08:51 BP 108/62 11/01/24 08:51 Pulse Ox 97 11/01/24 08:51 Oxygen Delivery Method Room Air 11/01/24 08:51 BMI result Body Mass Index 40.2 Tobacco/Smoking Status: Tobacco use Status Tobacco use date assessed 11/01/24 11/01/24 08:49 Patient Tobacco Use Status Former Tobacco user 11/01/24 08:49 e-Cigarette/Vaping Use Never Used 11/01/24 08:49 PHQ-9: PHQ-9 Score PHQ-9: Total score 0 11/01/24 08:55 Depression Screening Interpretation: Negative Thrive Assessment: Date of Thrive Assessment Date Thrive assessed 11/01/24 11/01/24 09:01 Currently or been in a relationship where the following occur: No concerns reported Const Orientation/consciousness: patient oriented x3 HENMT Ears: hearing grossly normal bilaterally Neck Thyroid: Thyroid normal Lymphatic: no lymphadenopathy noted Resp Auscultation: clear to auscultation bilaterally Cardio Rate: regular rate Rhythm: regular rhythm Heart sounds: S1 normal heart sound present and S2 normal heart sound present GI Inspection: Yes normal to inspection Palpation (GI): Soft to palpation and Other GI palpation findings present (nontender, no cva tenderness) Skin General skin exam: no rashes or lesions noted Neuro Other: Decreased vibratory sensation on the right. Absent on the left. Diminished monofilament sensation bilaterally. Strength is intact. General: patient oriented x3, gait normal and no focal motor deficits Results AMB Hemoglobin A1c AMB Hemoglobin A1c 5.8 % Last Edit by Marie Robles CMA on 11/01/24 09:02 Results Reviewed Results Reviewed: Laboratory Last Values Hgb A1c (Clinic) 5.8 % (4.0-6.0) 11/01/24 08:57 Coding Level of Care Code Est Pt Level 4 (54513) Diagnoses Type 2 diabetes, controlled, with neuropathy E11.40 Primary hypertension I10 Hypertension type: primary hypertension Dyslipidemia E78.5 Lumbar pain with radiation down both legs M54.50; M79.604; M79.605 Lower extremity weakness R29.898 Paresthesia of bilateral legs R20.2 Additional Codes LAYTON-7 Assessment Billing - LAYTON-7 Assessment Tool: LAYTON-7 Assessment 13816 ([id number]) PHQ-9 - 74993 - PHQ-9 Billing: Yes ([id number]) Assessment & Plan Assessment & Plan (1) Type 2 diabetes, controlled, with neuropathy: Code(s): E11.40 - Type 2 diabetes mellitus with diabetic neuropathy, unspecified Category: Medical Plan: Continue current regimen. Currently well-controlled. (2) HTN (hypertension): Code(s): I10 - Essential (primary) hypertension Category: Medical Qualifiers: Hypertension type: primary hypertension Qualified Code(s): I10 - Essential (primary) hypertension Plan: WNL. Continue current regimen (3) Dyslipidemia: Code(s): E78.5 - Hyperlipidemia, unspecified Category: Medical Plan: As above (4) Lumbar pain with radiation down both legs: Code(s): M54.50 - Low back pain, unspecified; M79.604 - Pain in right leg; M79.605 - Pain in left leg Category: Medical Plan: He is going to follow with sports Medicine to discuss a cortisone injection. We will trial prednisone taper. Lidocaine patches to use for pain. (5) Lower extremity weakness: Code(s): R29.898 - Other symptoms and signs involving the musculoskeletal system Category: Medical Plan: As above (6) Paresthesia of bilateral legs: Code(s): R20.2 - Paresthesia of skin Category: Medical Plan: As above Orders: Orders AMB Hemoglobin A1c Today E11.40 - Type 2 diabetes mellitus with diabetic neuropathy, unspecified Complete Blood Count Auto Diff Today E11.40 - Type 2 diabetes mellitus with diabetic neuropathy, unspecified, E78.5 - Hyperlipidemia, unspecified, I10 - Essential (primary) hypertension Comprehensive [place]. Panel Fast Today E11.40 - Type 2 diabetes mellitus with diabetic neuropathy, unspecified, E78.5 - Hyperlipidemia, unspecified, I10 - Essential (primary) hypertension TSH reflex Free T4 Today E11.40 - Type 2 diabetes mellitus with diabetic neuropathy, unspecified, E78.5 - Hyperlipidemia, unspecified, I10 - Essential (primary) hypertension Prostate Specific Antigen Scr Today E11.40 - Type 2 diabetes mellitus with diabetic neuropathy, unspecified, E78.5 - Hyperlipidemia, unspecified, I10 - Essential (primary) hypertension, Z01.89 - Encounter for other specified special examinations Hemoglobin A1c Today E11.40 - Type 2 diabetes mellitus with diabetic neuropathy, unspecified, E78.5 - Hyperlipidemia, unspecified, I10 - Essential (primary) hypertension, R73.01 - Impaired fasting glucose Lipid Panel Today E11.40 - Type 2 diabetes mellitus with diabetic neuropathy, unspecified, E78.5 - Hyperlipidemia, unspecified, I10 - Essential (primary) hypertension Microalbumin, Random (w Creat) Today E11.40 - Type 2 diabetes mellitus with diabetic neuropathy, unspecified, E78.5 - Hyperlipidemia, unspecified, I10 - Essential (primary) hypertension Referrals Neuro Spine Referral M54.50 - Low back pain, unspecified, M79.604 - Pain in right leg, M79.605 - Pain in left leg, R20.2 - Paresthesia of skin, R29.898 - Other symptoms and signs involving the musculoskeletal system Medications: New prednisone take 3 tab po x 3 days, take 2 tab po x 3 days, 1 tab po x 3 days 18 tabs 0RF lidocaine 5% leave on most painful area for up to 12 hrs 1 patch topical DAILY 30 days 30 ea 3RF
[2024-11-01 08:51] VITALS: BP 108/62; PULSE 69; RESP 16; O2SAT 97; BMI 40.2
--- OUTSIDE RECORDS SUMMARY | 2024-11-01 09:05 | XMS_ITS | Encounter Summary ---
Author Organization [facility] Address [address] [place] [address] Care Team Providers Care Spot Machine Operator Name Role Phone Nurys Guthrie MD Primary Care Provider Garrett Solorzano DO Primary Care Provider Agnieszka vailable Encounter Details Date Type Department Care Team Description 10/12/2019 Hospital Medical Records [address] [place] [address] Geoff Guerra MD Social History Tobacco Use [...] on filedocumented in this encounter Care Teams Spot Machine Operator Relationship Specialty Start Date End Date Nurys Guthrie MD PCP - General Internal Medicine 05/22/15 01/05/21 Garrett Avery DO PCP - General Internal Medicine 01/06/21 documented as of this encounter
--- OUTSIDE RECORDS SUMMARY | 2024-11-01 09:05 | XMS_ITS | Clinical Summary ---
Author Organization [facility] Address [address] [place] [address] Care Team Providers Care Barrel Polisher Inside Name Role Phone Garrett Avery DO Primary [...] (2022- 4 season) 2024 07/23/2021, 10/30/2020, 10/07/2020 BMI CHECK/ADVISE 07/11/2024 05/11/2021, , 03/17/2021, Additional history exists INFLUENZA (Season Ended) 2025 021, 05/01/2019 (Completed), 05/01/2019, Additional history exists HEPATITIS C SCREENING Completed 04/15/2015 Care Teams Barrel Polisher Inside Relationship Specialty Start Date End Date Garrett Avery DO PCP - General Internal Medicine 01/06/21
--- OUTSIDE RECORDS SUMMARY | 2024-11-01 09:05 | XMS_ITS | Encounter Summary ---
Author Organization [facility] Address [address] [place] [address] Care Team Providers Care Air Quality Instrument Specialist Name Role Phone Nurys Guthrie MD Primary Care Provider Garrett Solorzano DO Primary Care Provider Agnieszka vailable Encounter Details Date Type Department Care Team Description 09/24/2017 Pt. Non Urgent Medical Question Medicine/Pediatrics - [address] [id number] Nurys Guthrie MD Social History Tobacco Use [...] on filedocumented in this encounter Care Teams Air Quality Instrument Specialist Relationship Specialty Start Date End Date Nurys Guthrie MD PCP - General Internal Medicine 05/22/15 01/05/21 Avery, Garrett, DO PCP - General Internal Medicine 01/06/21 documented as of this encounter
--- OUTSIDE RECORDS SUMMARY | 2024-11-01 09:05 | XMS_ITS | Clinical Summary ---
Author Organization [facility] Address [address] [place] [address] Phone Care Team Providers Care Can Conveyor Feeder Name Role Phone Nurys Doyle MD Primary Care Provider [phone] Allergies No known active allergies Medications atorvastatin [...] Noted Date Diagnosed Date Renal cell carcinoma (CMS/HCC V24, CMS/HCC V28) 04/20/2022 Immunizations Name Administration Dates Next Due Pfizer SARS-CoV-2 COVID-19, mRNA, LNP-S, preservative free 07/23/2021,06/11/2021,10/30/2020,2020 Surgical History Surgery Date Site/Laterality Comments HERNIA REPAIR PROCEDURE:HERNIA REPAIR Medical History Medical History Date Comments Diabetes mellitus (CMS/HCC V24, CMS/HCC V28) DX:Diabetes mellitus (HCC) Hyperlipemia DX:Hyperlipemia Family History Medical [...] Description 06/03/2025 10:00 AM EST Office Visit [facility] Hematology Oncology [address] [place] [id number] Mary Ware, DO [address] [place] [address] Health Maintenance Due Date Last Done Comments Diabetes: Annual Foot Exam 09/12/1965 Diabetes: Annual Retina Eye Exam 09/12/1965 Zoster Vaccines (1 of 2) 09/12/1974 Pneumococcal Vaccine: 50+ Years (2 of 2 - PCV) 10/29/2010 10/29/2009 RSV Immunization Adult Patients (1 - Risk 60-74 years 1-dose series) [...] 05/17/2022, 07/23/2021, Additional history exists Influenza Vaccine (Season Ended) 2025 04/30/2023, 04/29/2022, 03/27/2021, Additional history exists Diabetes: Annual [...] age to complete this topic Meningococcal B Vaccine Aged Out No l onger eligible based on patient's age to complete [...] neoplasm of left kidney, except renal pelvis (CMS/HCC V24, CMS/[facility] V28) from Last 3 Months or Most Recently Relevant to Health Maintenance Results * Comprehensive metabolic panel (05/17/2024 9:56 AM EST) Sodium 134 133 - 145 mmol/L LAB CHEMISTRY METHOD 05/17/2024 11:27 AM [facility] Potassium 4.8 3.5 - 5.5 mmol/L LAB CHEMISTRY METHOD 05/17/2024 11:27 AM [facility] Chloride 104 96 - 110 mmol/L LAB CHEMISTRY METHOD 05/17/2024 11:27 AM [facility] CO2 26 21 - 32 mmol/L LAB CHEMISTRY METHOD 05/17/2024 11:27 AM [facility] Anion Gap 4 3 - 11 LAB CHEMISTRY METHOD 05/17/2024 11:27 AM [facility] Glucose 96 70 - 100 mg/dL LAB CHEMISTRY METHOD 05/17/2024 11:27 AM [facility] BUN 17 5 - 25 mg/dL LAB CHEMISTRY METHOD 05/17/2024 11:27 AM [facility] Creatinine 1.06 0.70 - 1.30 mg/dL LAB CHEMISTRY METHOD 05/17/2024 11:27 AM [facility] eGFR 76 >=60 mL/min/1. 73m2 LAB CHEMISTRY METHOD 05/17/2024 11:27 AM [facility] Comment:Calculation based on the??Chronic Kidney Disease Epidemiology Collaboration (CKD-EPI) equation refit??without adjustment for race. BUN/Creatinine Ratio 16.0 LAB CHEMISTRY METHOD 05/17/2024 11:27 AM [facility] Calcium 9.7 8.5 - 10.5 mg/dL LAB CHEMISTRY METHOD 05/17/2024 11:27 AM [facility] AST (SGOT) 24 10 - 42 unit/L LAB CHEMISTRY METHOD 05/17/2024 11:27 AM [facility] ALT (SGPT) 36 10 - 60 unit/L LAB CHEMISTRY METHOD 05/17/2024 11:27 AM [facility] Alkaline Phosphatase 62 42 - 121 unit/L LAB CHEMISTRY METHOD 05/17/2024 11:27 AM [facility] Total Protein 6.9 6.0 - 8.0 g/dL LAB CHEMISTRY METHOD 05/17/2024 11:27 AM [facility] Albumin 3.8 3.2 - 5.0 g/dL LAB CHEMISTRY METHOD 05/17/2024 11:27 AM [facility] Total Bilirubin 0.5 0.0 - 1.4 mg/dL LAB CHEMISTRY METHOD 05/17/2024 11:27 AM [facility] Blood Venous blood specimen / Unknown Venipuncture / Unknown 05/17/2024 9:56 AM EST 05/17/2024 11:07 AM EST us Mary Ware DO LAB BLOOD ORDERABLES Final Result [facility] [address] [place] [address], from Last 3 Months or Most Recently Relevant to Health Maintenance Insurance [employer] Member Subscriber Plan / Payer (Ef fective 2023-Present) Name:Arnold Poole Cristóbal Relation to Subscriber:Self Name:Arnold Poole Cristóbal Payer ID:[id number] Group ID:Not on file Type:Not on file Address: [place] [id number] Care Teams Can Conveyor Feeder Relationship Specialty Start Date End Date Nurys Doyle MD PCP - General Internal Medicine 02/29/24
--- OUTSIDE RECORDS SUMMARY | 2024-11-01 09:05 | XMS_ITS | Encounter Summary ---
Author Organization [facility] Address [address] [place] [address] Care Team Providers Care Yoke Presser Name Role Phone Nicole Oliver MD Primary Care Provider Sandoval Spence MD Primary Care Provider Unavailab Arnold Bobo MD Primary Care Provider Unavail able Nurys Guthrie MD Primary Care Provider Unavaila Garrett Gar DO Primary Care Provider Agnieszka vailable Encounter Details Date Type Department Care Team Description 06/17/2011 DOT Physical Forms Medical Records [address] [place] [address] Abstract, Provider Social History Tobacco Use Types [...] on filedocumented in this encounter Care Teams Yoke Presser Relationship Specialty Start Date End Date Nicole [...]
--- OUTSIDE RECORDS SUMMARY | 2024-11-01 09:05 | XMS_ITS | Encounter Summary ---
Author Organization [facility] Address [address] [place] [address] Care Team Providers Care Pastrycook'S Assistant Name Role Phone Garrett Avery DO Primary Care Provider Agnieszka vailable Encounter Details Date Type Department Care Team Description 01/06/2021 [place] [facility] [address] [place] [address] Md Kavitha Social History Tobacco Use Types [...] on filedocumented in this encounter Care Teams Pastrycook'S Assistant Relationship Specialty Start Date End Date Garrett Avery DO PCP - General Internal Medicine 01/06/21 documented as of this encounter
--- OUTSIDE RECORDS SUMMARY | 2024-11-01 09:05 | XMS_ITS | Encounter Summary ---
Author Organization [facility] Address [address] [place] [address] Care Team Providers Care Airplane Inspector Name Role Phone Nurys Guthrie MD Primary Care Provider Nancya Garrett Gar DO Primary Care Provider Agnieszka vailable Encounter Details Date Type Department Care Team Description 04/27/2018 Broker Assistant Report Medical Records [address] [place], [place] [id number] [place] [address] Social History Tobacco Use Types Packs/Day Years [...] on filedocumented in this encounter Care Teams Airplane Inspector Relationship Specialty Start Date End Date Nurys Guthrie MD PCP - General Internal Medicine 05/22/15 01/05/21 Garrett Avery DO PCP - General Internal Medicine 01/06/21 documented as of this encounter
--- OUTSIDE RECORDS SUMMARY | 2024-11-01 09:05 | XMS_ITS | Encounter Summary ---
Author Organization [facility] Address [address] [place] [address] Care Team Providers Care Dispatcher Bus And Trolley Name Role Phone Nurys Guthrie MD Primary Care Provider Nancya Garrett Gar DO Primary Care Provider Agnieszka vailable Encounter Details Date Type Department Care Team Description 09/19/2019 Orders Only Medical Records [address] [place] [address] Jose Uriostegui MD Social History Tobacco Use Types Packs/Day [...] on file documented as of this encounter Procedures Procedure Name Priority Date/Time Associated Diagnosis Comments OUTSIDE CT Routine 09/19/2019 documented in this encounter Results * OUTSIDE CT (09/19/2019) Jose Uriostegui MD RADIOLOGY documented in this encounter Visit Diagnoses Not on filedocumented in this encounter Care Teams Dispatcher Bus And Trolley Relationship Specialty Start Date End Date Nurys Guthrie MD PCP - General Internal Medicine 05/22/15 01/05/21 Garrett Avery DO PCP - General Internal Medicine 01/06/21 documented as of this encounter
--- OUTSIDE RECORDS SUMMARY | 2024-11-01 09:05 | XMS_ITS | Clinical Summary ---
Author Organization [facility] Address [address] [place] [address] Care Team Providers Care Radio Tower Technician Name Role Phone Nurys Doyle MD Primary Care Provider [phone] Allergies No known active allergies Medications Medication [...] age to complete this topic Care Teams Radio Tower Technician Relationship Specialty Start Date End Date Nurys Doyle MD PCP - General Internal Medicine 04/25/20
--- OUTSIDE RECORDS SUMMARY | 2024-11-01 09:05 | XMS_ITS | Encounter Summary ---
Author Organization [facility] Address [address] [place] [address] Care Team Providers Care Antique Finisher Name Role Phone Nurys Guthrie MD Primary Care Provider Garrett Solorzano DO Primary Care Provider Agnieszka vailable Encounter Details Date Type Department Care Team Description 03/20/2017 Orders Only Medicine/Pediatrics - [address] [phone] Jocelyn Cain PA-C IFG (impaired fasting glucose) (Primary Dx) Social History Tobacco Use Types Packs/Day Years [...] on file documented as of this encounter Results * HEMOGLOBIN A1C (03/28/2017 8:55 AM EDT) Glycosylated Hemoglobin A1C 5.5 4.0 - 6.0 % 03/28/2017 12:35 PM EDT [facility] Comment: HbA1C VALUES MAY NOT ACCURATELY REFLECT MEAN BLOOD GLUCOSE IN PATIENTS WITH HEMOGLOBIN VARIANTS SUCH HbF, HbS. 03/28/2017 8:55 AM EDT 03/28/2017 8:56 AM EDT Jocelyn Cain PA-C [facility] [address] [facility] documented in this encounter Visit Diagnoses Diagnosis IFG (impaired fasting glucose)- Primary Impaired fasting glucose documented in this encounter Care Teams Antique Finisher Relationship Specialty Start Date End Date Nurys Guthrie MD PCP - General Internal Medicine 05/22/15 01/05/21 Garrett Avery DO PCP - General Internal Medicine 01/06/21 documented as of this encounter
--- OUTSIDE RECORDS SUMMARY | 2024-11-01 09:05 | XMS_ITS | Encounter Summary ---
Author Organization [facility] Address [address] [place] [address] Care Team Providers Care Director Reactor Projects Name Role Phone Sandoval Quezada MD Primary Care Provider Unavailab Arnold Bobo MD Primary Care Provider Unavail able Nurys Guthrie MD Primary Care Provider Unavaila ble Garrett Avery DO Primary Care Provider Agnieszka vailable Encounter Details Date Type Department Care Team Description 05/30/2013 DOT Physical Forms Medical Records [address] [place] [address] Abstract, Provider Social History Tobacco Use Types [...] filedocumented in this encounter Care Teams Director Reactor Projects Relationship Specialty Start Date End Date Sandoval Quezada MD PCP - General Internal Medicine 05/17/13 07/10/14 Arnold Quezada MD PCP - General Internal Medicine 04/04/15 05/21/15 Nurys Guthrie MD PCP - General Internal Medicine 05/22/15 01/05/21 Garrett Avery DO PCP - General Internal Medicine 01/06/21 documented as of this encounter
--- OUTSIDE RECORDS SUMMARY | 2024-11-01 09:05 | XMS_ITS | Encounter Summary ---
Author Organization [facility] Address [address] [place] [address] Care Team Providers Care Senior Dentist Name Role Phone Garrett Avery DO Primary Care Provider Agnieszka vailable Reason for Visit * Reason Onset Date Comments Pre-op Needed 03/19/2021 Encounter Details Date Type Department Care Team Description 03/19/2021 Telephone General Surgery - [place] [address] [facility] [address] [place] [phone] Lise Dillard MD [address] [facility] [address] [place] [address] Pre-op Needed Social History Tobacco [...] Dillard MD Office phone number of surgeon: [phone] Fax # for surgeons office: [phone] (Required) Where is surgery being performed? [facility] Diagnosis/problem for surgery: Umbilical hernia Is an EKG required for the pre-op workup? YES PCP: Garrett Avery DO Did you verify that the insurance below is correct? YES Patients insurance: Payor: ROBBY/PPO POS / Plan: Day Zero Project [facility] ELECT $20 / Product Type: PPO [id number] documented in this encounter Plan of Treatment Not on file documented as of this encounter Visit Diagnoses Not on filedocumented in this encounter Care Teams Senior Dentist Relationship Specialty Start Date End Date Garrett Avery DO PCP - General Internal Medicine 01/06/21 documented as of this encounter
--- OUTSIDE RECORDS SUMMARY | 2024-11-01 09:05 | XMS_ITS | Encounter Summary ---
Author Organization [facility] Address [address] [place] [address] Care Team Providers Care Pulling Unit Operator Name Role Phone Nurys Guthrie MD Primary Care Provider Garrett Solorzano DO Primary Care Provider Agnieszka vailable Encounter Details Date Type Department Care Team Description 09/09/2020 Caretaker Grounds Report Medical Records [address] [place] [id number] Geoff Guerra MD Social History Tobacco Use [...] on filedocumented in this encounter Care Teams Pulling Unit Operator Relationship Specialty Start Date End Date Nurys Guthrie MD PCP - General Internal Medicine 05/22/15 01/05/21 Garrett Avery DO PCP - General Internal Medicine 01/06/21 documented as of this encounter
--- OUTSIDE RECORDS SUMMARY | 2024-11-01 09:05 | XMS_ITS | Encounter Summary ---
Author Organization [facility] Address [address] [place] [address] Care Team Providers Care Treating Plant Supervisor Name Role Phone Garrett Avery DO Primary Care Provider Agnieszka vailable Encounter Details Date Type Department Care Team Description 04/07/2021 Business Doc Medical Records [address] [place] [address] Abstract, Provider Social History Tobacco Use Types [...] on filedocumented in this encounter Care Teams Treating Plant Supervisor Relationship Specialty Start Date End Date Garrett Avery DO PCP - General Internal Medicine 01/06/21 documented as of this encounter
--- OUTSIDE RECORDS SUMMARY | 2024-11-01 09:05 | XMS_ITS | Encounter Summary ---
Author Organization [facility] Address [address] [place] [address] Care Team Providers Care Internet Project Manager Name Role Phone Garrett Avery DO Primary Care Provider Agnieszka vailable Encounter Details Date Type Department Care Team Description 04/14/2021 Orders Only Medical Records [address] [place] [address] Lise Dillard MD [address] [place] [phone] Social History Tobacco Use Types Packs/Day Years [...] Name Priority Date/Time Associated Diagnosis Comments OUTSIDE PATHOLOGY Routine 04/10/2021 documented in this encounter Results * OUTSIDE PATHOLOGY (04/10/2021) Lise Dillard MD OUTSIDE LAB documented in this encounter Visit Diagnoses Not on filedocumented in this encounter Care Teams Internet Project Manager Relationship Specialty Start Date End Date Garrett Avery DO PCP - General Internal Medicine 01/06/21 documented as of this encounter
--- OUTSIDE RECORDS SUMMARY | 2024-11-01 09:05 | XMS_ITS | Encounter Summary ---
Author Organization [facility] Address [address] [place] [address] Care Team Providers Care Metal Fitters And Machinists Name Role Phone Garrett Avery DO Primary Care Provider Agnieszka vailable Encounter Details Date Type Department Care Team Description 04/27/2021 Video Library Assistant Report Medical Records [address] [place], [place] [phone] [place] [address] Social History Tobacco Use Types Packs/Day Years [...] on filedocumented in this encounter Care Teams Metal Fitters And Machinists Relationship Specialty Start Date End Date Garrett Avery DO PCP - General Internal Medicine 01/06/21 documented as of this encounter
--- OUTSIDE RECORDS SUMMARY | 2024-11-01 09:05 | XMS_ITS | Encounter Summary ---
Author Organization [facility] Address [address] [place] [address] Care Team Providers Care Senior Applications Developer Name Role Phone Garrett Avery DO Primary Care Provider Agnieszka vailable Encounter Details Date Type Department Care Team Description 08/21/2021 SCAN [facility] [address] [phone] Jeyson Whelan DPM [address] [address] Social History Tobacco Use Types Packs/Day Years [...] filedocumented in this encounter Care Teams Senior Applications Developer Relationship Specialty Start Date End Date Garrett Avery DO PCP - General Internal Medicine 01/06/21 documented as of this encounter
--- OUTSIDE RECORDS SUMMARY | 2024-11-01 09:05 | XMS_ITS | Encounter Summary ---
Author Organization [facility] Address [address] [place] [address] Care Team Providers Care Construction Craft Laborer Name Role Phone Nurys Guthrie MD Primary Care Provider Garrett Solorzano DO Primary Care Provider Agnieszka vailable Encounter Details Date Type Department Care Team Description 02/20/2020 Warp Drawer Report Medical Records [address] [place] [address] [facility] Social History Tobacco [...] on filedocumented in this encounter Care Teams Construction Craft Laborer Relationship Specialty Start Date End Date Nurys Guthrie MD PCP - General Internal Medicine 05/22/15 01/05/21 Garrett Avery DO PCP - General Internal Medicine 01/06/21 documented as of this encounter
== END 2024-11-01 09:21 | disposition home or self-care (01) ==
LOC: HO.HMCFM 08:41
PROVIDERS: PCP Physician Assistant; Visit Provider Physician Assistant
DX: E11.40 Type 2 diabetes mellitus with diabetic neuropathy, unspecified (principal); I10 Essential (primary) hypertension; E78.5 Hyperlipidemia, unspecified; M54.50 Low back pain, unspecified; M79.604 Pain in right leg; M79.605 Pain in left leg; R29.898 Other symptoms and signs involving the musculoskeletal system; R20.2 Paresthesia of skin

== ENCOUNTER → 2024-11-01 08:40 | Outpatient (BNVA) | payer MEDICARE, OTHER, SELFPAY | PROVIDERS: PCP Physician Assistant; Visit Provider Physician Assistant | DX: E11.40 Type 2 diabetes mellitus with diabetic neuropathy, unspecified (principal); E78.5 Hyperlipidemia, unspecified; I10 Essential (primary) hypertension; R20.2 Paresthesia of skin; R29.898 Other symptoms and signs involving the musculoskeletal system; M54.50 Low back pain, unspecified; M79.604 Pain in right leg; M79.605 Pain in left leg | CPT/HCPCS: 83036; 96127; 99212 ==

== ENCOUNTER 2024-11-19 11:15 | Outpatient (AMB) | payer MEDICARE, OTHER, SELFPAY ==
--- NOTE | 2024-11-19 11:46 | HO.SPINEOV ---
Intake Visit Reasons: LBP Intake Note: Mr. Poole is here today to discuss surgical options. Wellness Specialist Required: No Allergies No Known Allergies Allergy (Verified 11/01/24 08:48) Assessment & Plan Assessment & Plan (1) Scoliosis (and kyphoscoliosis), idiopathic: Code(s): M41.20 - Other idiopathic scoliosis, site unspecified Category: Medical Plan Mr Poole is here in follow-up. He is continuing to have back pain centered over the lower lumbar region bilaterally, which is aggravated with standing and particular activity where he is bending. 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 He has been through physical therapy and it did not really help much. He is going to see pain management at [facility]. Right now the pain is livable but it does get in the way of some of his activities. It is not severe and debilitating where he does not get out of bed or leave the house because of it. I suspect that down the road he may need correction of this, L3-4 and L4-5, probably lumbar fusion to address it. Because the pain is manageable right now, we are going to just let him continue on with the pain management and if it gets debilitating he will contact me and let me know and we can discuss possible surgical options with Dr. Stout. Total amount of time spent in this visit was 20 minutes in discussion of symptoms, lumbar MRI imaging results and subsequent plan of care Андрей Stout MD,PhD [facility] Coding Level of Care Code Est Pt Level 3 (79869) Diagnoses Scoliosis (and kyphoscoliosis), idiopathic M41.20
--- OUTSIDE RECORDS SUMMARY | 2024-11-19 12:05 | XMS_ITS | Encounter Summary ---
Author Organization [facility] Address [address] [place] [address] Care Team Providers Care Director Of Patient Safety Name Role Phone Nurys Guthrie MD Primary Care Provider Garrett Solorzano DO Primary Care Provider Agnieszka vailable Encounter Details Date Type Department Care Team Description 09/12/2019 Pt. Non Urgent Medical Question Medicine/Pediatrics - [address] [phone] Nurys Guthrie MD Social History Tobacco Use [...] 2019 2:59 PM ESTFrom: Arnold Poole To: Nurys Guthrie MD Sent: 09/12/2019 7:33 PM EST Subject: MRI Dr Guerra is asking for the mri disc . Do I need to pick it up ? My appt with him is Sep 18. documented in this encounter Plan of Treatment Not on file documented as of this encounter Visit Diagnoses Not on filedocumented in this encounter Care Teams Director Of Patient Safety Relationship Specialty Start Date End Date Nurys Guthrie MD PCP - General Internal Medicine 05/22/15 01/05/21 Garrett Avery DO PCP - General Internal Medicine 01/06/21 documented as of this encounter
--- OUTSIDE RECORDS SUMMARY | 2024-11-19 12:05 | XMS_ITS | Clinical Summary ---
Author Organization [facility] Address [address] [place] [address] Care Team Providers Care Sports Marketing Specialist Name Role Phone Nurys Doyle MD Primary Care Provider [phone] Allergies No known active allergies Medications Medication [...] age to complete this topic Care Teams Sports Marketing Specialist Relationship Specialty Start Date End Date Nurys Doyle MD PCP - General Internal Medicine 04/25/20
--- OUTSIDE RECORDS SUMMARY | 2024-11-19 12:05 | XMS_ITS | Encounter Summary ---
Author Organization [facility] Address [address] [place] [address] Care Team Providers Care Roller Billet Mill Name Role Phone Nurys Guthrie MD Primary Care Provider Garrett Solorzano DO Primary Care Provider Agnieszka vailable Encounter Details Date Type Department Care Team Description 09/09/2020 Fiber Locking Supervisor Report Medical Records [address] [place] [address] Geoff Guerra MD Social History Tobacco Use [...] on filedocumented in this encounter Care Teams Roller Billet Mill Relationship Specialty Start Date End Date Nurys Guthrie MD PCP - General Internal Medicine 05/22/15 01/05/21 Garrett Avery DO PCP - General Internal Medicine 01/06/21 documented as of this encounter
--- OUTSIDE RECORDS SUMMARY | 2024-11-19 12:05 | XMS_ITS | Encounter Summary ---
Author Organization [facility] Address [address] [place] [address] Care Team Providers Care Bead Maker Name Role Phone Nurys Guthrie MD Primary Care Provider Nancya Garrett Gar DO Primary Care Provider Agnieszka vailable Encounter Details Date Type Department Care Team Description 04/27/2018 Cotton Ball Bagger Report Medical Records [address] [place], [place] [phone] [place] [address] Social History Tobacco Use Types Packs/Day Years [...] on filedocumented in this encounter Care Teams Bead Maker Relationship Specialty Start Date End Date Nurys Guthrie MD PCP - General Internal Medicine 05/22/15 01/05/21 Garrett Avery DO PCP - General Internal Medicine 01/06/21 documented as of this encounter
--- OUTSIDE RECORDS SUMMARY | 2024-11-19 12:05 | XMS_ITS | Encounter Summary ---
Author Organization [facility] Address [address] [place] [address] Care Team Providers Care Director Of Operations For Therapy Name Role Phone Nurys Guthrie MD Primary Care Provider Garrett Solorzano DO Primary Care Provider Agnieszka vailable Encounter Details Date Type Department Care Team Description 10/09/2019 Hospital Medical Records [address] [place] [address] Geoff Guerra MD Social History Tobacco Use [...] in this encounter Care Teams Director Of Operations For Therapy Relationship Specialty Start Date End Date Nurys Guthrie MD PCP - General Internal Medicine 05/22/15 01/05/21 Garrett Avery DO PCP - General Internal Medicine 01/06/21 documented as of this encounter
--- OUTSIDE RECORDS SUMMARY | 2024-11-19 12:05 | XMS_ITS | Encounter Summary ---
Author Organization [facility] Address [address] [place] [address] Care Team Providers Care Elastic Tape Inserter Name Role Phone Nurys Guthrie MD Primary Care Provider Garrett Solorzano DO Primary Care Provider Agnieszka vailable Encounter Details Date Type Department Care Team Description 03/20/2017 Orders Only Medicine/Pediatrics - [address] [phone] Jocelyn Cain PA-C IFG (impaired fasting glucose) [...] 6.0 % 03/28/2017 12:35 PM EDT [facility] Comment: HbA1C VALUES MAY NOT ACCURATELY REFLECT MEAN BLOOD GLUCOSE IN PATIENTS WITH HEMOGLOBIN VARIANTS SUCH HbF, HbS. 03/28/2017 8:55 AM EDT 03/28/2017 8:56 AM EDT Jocelyn Cain PA-C [facility] [address] [facility] documented in this encounter Visit Diagnoses Diagnosis IFG (impaired fasting glucose)- Primary Impaired fasting glucose documented in this encounter Care Teams Elastic Tape Inserter Relationship Specialty Start Date End Date Nurys Guthrie MD PCP - General Internal Medicine 05/22/15 01/05/21 Garrett Avery DO PCP - General Internal Medicine 01/06/21 documented as of this encounter
--- OUTSIDE RECORDS SUMMARY | 2024-11-19 12:05 | XMS_ITS | Encounter Summary ---
Author Organization [facility] Address [address] [place] [address] Care Team Providers Care Transmitter Engineer Name Role Phone Nurys Guthrie MD Primary Care Provider Garrett Solorzano DO Primary Care Provider Agnieszka vailable Encounter Details Date Type Department Care Team Description 10/12/2019 Hospital Medical Records [address] [place] [address] Geoff Guerra MD Social History Tobacco Use [...] on filedocumented in this encounter Care Teams Transmitter Engineer Relationship Specialty Start Date End Date Nurys Guthrie MD PCP - General Internal Medicine 05/22/15 01/05/21 Grarett Avery DO PCP - General Internal Medicine 01/06/21 documented as of this encounter
--- OUTSIDE RECORDS SUMMARY | 2024-11-19 12:05 | XMS_ITS | Encounter Summary ---
Author Organization [facility] Address [address] [place] [address] Care Team Providers Care 3D Specialist Name Role Phone Sandoval Quezada MD Primary Care Provider Unavailab Arnold Bobo MD Primary Care Provider Unavail able Nurys Guthrie MD Primary Care Provider Unavaila ble Garrett Avery DO Primary Care Provider Agnieszka vailable Encounter Details Date Type Department Care Team Description 05/30/2013 DOT Physical Forms Medical Records [address] [place] [address] Abstract, Provider Social History Tobacco Use Types [...] on filedocumented in this encounter Care Teams 3D Specialist Relationship Specialty Start Date End Date Sandoval Quezada MD PCP - General Internal Medicine 05/17/13 07/10/14 Arnold Quezada MD PCP - General Internal Medicine 04/04/15 05/21/15 Nurys Guthrie MD PCP - General Internal Medicine 05/22/15 01/05/21 Garrett Avery DO PCP - General Internal Medicine 01/06/21 documented as of this encounter
--- OUTSIDE RECORDS SUMMARY | 2024-11-19 12:05 | XMS_ITS | Encounter Summary ---
Author Organization [facility] Address [address] [place] [address] Care Team Providers Care Crime Lab Analyst Name Role Phone Nurys Guthrie MD Primary Care Provider Nancya Garrett Gar DO Primary Care Provider Agnieszka vailable Encounter Details Date Type Department Care Team Description 04/27/2019 Retort Forker Report Medical Records [address] [place], [place] [phone] [place] [address] Social History Tobacco Use Types Packs/Day Years [...] on filedocumented in this encounter Care Teams Crime Lab Analyst Relationship Specialty Start Date End Date Nurys Guthrie MD PCP - General Internal Medicine 05/22/15 01/05/21 Garrett Avery DO PCP - General Internal Medicine 01/06/21 documented as of this encounter
--- OUTSIDE RECORDS SUMMARY | 2024-11-19 12:05 | XMS_ITS | Encounter Summary ---
Author Organization [facility] Address [address] [place] [address] Care Team Providers Care Clerical Assistant Name Role Phone Nicole Oliver MD Primary Care Provider Sandoval Spence MD Primary Care Provider Unavailab Arnold Bobo MD Primary Care Provider Unavail able Nurys Guthrie MD Primary Care Provider Unavaila Garrett Gar DO Primary Care Provider Agnieszka vailable Encounter Details Date Type Department Care Team Description 06/17/2011 DOT Physical Forms Medical Records [address] [place] [address] Abstract, Provider Social History Tobacco Use Types [...] on filedocumented in this encounter Care Teams Clerical Assistant Relationship Specialty Start Date End Date Nicole [...]
--- OUTSIDE RECORDS SUMMARY | 2024-11-19 12:05 | XMS_ITS | Encounter Summary ---
Author Organization [facility] Address [address] [place] [address] Care Team Providers Care Line Assembler Name Role Phone Garrett Avery DO Primary Care Provider Agnieszka vailable Reason for Visit * Reason Onset Date Comments Answering Service Telephone Operator Feedback 01/06/2021 Gen Surgery Encounter Details Date Type Department Care Team Description 01/06/2021 Telephone Medicine/Pediatrics - [address] [phone] Nurys Guthrie MD Answering Service Telephone Operator Feedback (Gen Surgery) Social History Tobacco Use [...] on filedocumented in this encounter Care Teams Line Assembler Relationship Specialty Start Date End Date Garrett Avery DO PCP - General Internal Medicine 01/06/21 documented as of this encounter
--- OUTSIDE RECORDS SUMMARY | 2024-11-19 12:05 | XMS_ITS | Encounter Summary ---
Author Organization [facility] Address [address] [place] [address] Care Team Providers Care Feather Baler Name Role Phone Nurys Guthrie MD Primary Care Provider Garrett Solorzano DO Primary Care Provider Agnieszka vailable Encounter Details Date Type Department Care Team Description 02/20/2020 Manager Transportation Planning Report Medical Records [address] [place] [address] [facility] Social History Tobacco [...] on filedocumented in this encounter Care Teams Feather Baler Relationship Specialty Start Date End Date Nurys Guthrie MD PCP - General Internal Medicine 05/22/15 01/05/21 Garrett Avery DO PCP - General Internal Medicine 01/06/21 documented as of this encounter
--- OUTSIDE RECORDS SUMMARY | 2024-11-19 12:05 | XMS_ITS | Encounter Summary ---
Author Organization [facility] Address [address] [place] [address] Care Team Providers Care Territory Sales Manager Name Role Phone Garrett Avery DO Primary Care Provider Agnieszka vailable Encounter Details Date Type Department Care Team Description 08/21/2021 SCAN [facility] [address] [phone] Jeyson Whelan DPM [address] [address] Social History Tobacco Use Types Packs/Day Years [...] on filedocumented in this encounter Care Teams Territory Sales Manager Relationship Specialty Start Date End Date Garrett Avery DO PCP - General Internal Medicine 01/06/21 documented as of this encounter
--- OUTSIDE RECORDS SUMMARY | 2024-11-19 12:05 | XMS_ITS | Encounter Summary ---
Author Organization [facility] Address [address] [place] [address] Care Team Providers Care Information Assistant Name Role Phone Nurys Guthrie MD Primary Care Provider Garrett Solorzano DO Primary Care Provider Agnieszka vailable Encounter Details Date Type Department Care Team Description 04/26/2020 Boiler Room Helper Report Medical Records [address] [place] [address] [facility] [address] [place] [address] Social History Tobacco Use Types Packs/Day Years [...] on filedocumented in this encounter Care Teams Information Assistant Relationship Specialty Start Date End Date Nurys Guthrie MD PCP - General Internal Medicine 05/22/15 01/05/21 Garrett Avery DO PCP - General Internal Medicine 01/06/21 documented as of this encounter
--- OUTSIDE RECORDS SUMMARY | 2024-11-19 12:05 | XMS_ITS | Encounter Summary ---
Author Organization [facility] Address [address] [place] [address] Care Team Providers Care Director Of Campus Recreation Name Role Phone Nurys Guthrie MD Primary Care Provider Garrett Solorzano DO Primary Care Provider Agnieszka vailable Encounter Details Date Type Department Care Team Description 04/25/2017 Coil Connector Repairer Report Medical Records [address] [place] [address] Anjana Herron PA-C [address] [phone] Social History Tobacco Use Types Packs/Day Years [...] in this encounter Care Teams Director Of Campus Recreation Relationship Specialty Start Date End Date Nurys Guthrie MD PCP - General Internal Medicine 05/22/15 01/05/21 Garrett Avery DO PCP - General Internal Medicine 01/06/21 documented as of this encounter
--- OUTSIDE RECORDS SUMMARY | 2024-11-19 12:05 | XMS_ITS | Encounter Summary ---
Author Organization [facility] Address [address] [place] [address] Care Team Providers Care Cyanide Pot Hardener Name Role Phone Nicole Oliver MD Primary Care Provider Sandoval Spence MD Primary Care Provider Unavailab Arnold Bobo MD Primary Care Provider Unavail able Nurys Guthrie MD Primary Care Provider Unavaila Garrett Gar DO Primary Care Provider Agnieszka vailable Encounter Details Date Type Department Care Team Description 08/17/2011 Abstract Medicine/Pediatrics - [address] [phone] Nicole Oliver MD Social History Tobacco Use [...] on filedocumented in this encounter Care Teams Cyanide Pot Hardener Relationship Specialty Start Date End Date Nicole [...]
--- OUTSIDE RECORDS SUMMARY | 2024-11-19 12:05 | XMS_ITS | Encounter Summary ---
Author Organization [facility] Address [address] [place] [address] Care Team Providers Care Home Health Cna Name Role Phone Garrett Avery DO Primary Care Provider Agnieszka vailable Encounter Details Date Type Department Care Team Description 04/27/2021 Field Party Manager Report Medical Records [address], [place] [id number] [place] [address] Social History Tobacco Use Types Packs/Day Years [...] on filedocumented in this encounter Care Teams Home Health Cna Relationship Specialty Start Date End Date Garrett Avery DO PCP - General Internal Medicine 01/06/21 documented as of this encounter
== END 2024-11-19 12:31 | disposition home or self-care (01) ==
LOC: HO.HNS 11:16
PROVIDERS: PCP Physician Assistant; Visit Provider Physician Assistant
DX: M41.20 Other idiopathic scoliosis, site unspecified (principal)
CPT/HCPCS: 99213

== ENCOUNTER → 2024-11-19 11:15 | Outpatient (BNVA) | payer MEDICARE, OTHER, SELFPAY | PROVIDERS: PCP Physician Assistant; Visit Provider Physician Assistant | DX: M41.20 Other idiopathic scoliosis, site unspecified (principal) | CPT/HCPCS: 99212 ==

== ENCOUNTER 2025-01-30 08:43 | Outpatient (REF) | payer MEDICARE, OTHER, SELFPAY ==
--- OUTSIDE RECORDS SUMMARY | 2025-01-30 08:59 | XMS_ITS | Clinical Summary ---
Author Organization [facility] Address [address] [place] [address] Care Team Providers Care Work Station Support Specialist Name Role Phone Garrett Avery DO Primary [...] 65 04/24/2021 9:04 AM EDT Temperature 35.9 C (96.7 F) 04/24/2021 9:04 AM EDT Respiratory Rate 15 03/27/2021 10:13 AM EDT [...] 05/11/2021, , 03/17/2021, Additional history exists INFLUENZA (#1) 2025 03/27/2021, 04/11 (Completed), 05/01/2019, Additional history exists HEPATITIS C SCREENING Completed 04/15/2015 Care Teams Work Station Support Specialist Relationship Specialty Start Date End Date Garrett Avery DO PCP - General Internal Medicine 01/06/21
--- OUTSIDE RECORDS SUMMARY | 2025-01-30 08:59 | XMS_ITS | Clinical Summary ---
Author Organization [facility] Address [address] [place] [address] Care Team Providers Care Milled Lumber Grader Name Role Phone Nurys Doyle MD Primary Care Provider [phone] Allergies No known active allergies Medications Medication [...] 72 10/26/2022 9:08 AM EDT Temperature 36.8 C (98.3 F) 10/26/2022 9:08 AM EDT Respiratory Rate - - Oxygen Saturation 95% [...] 10/30/2020, Additional history exists Influenza Vaccine (#1) 2025 , 03/27/2021, 03/27/2021, Additional history exists RSV Adult > 60+ Yrs or (1 - 1-dose 75+ series) 09/12/2030 Hepatitis B Vaccines Aged Out No long er eligible based on patient's age to complete this topic RSV Ped < 20 months Aged Out No longe r eligible based on patient's age to complete this topic Care Teams Milled Lumber Grader Relationship Specialty Start Date End Date Nurys Doyle MD PCP - General Internal Medicine 04/25/20
--- OUTSIDE RECORDS SUMMARY | 2025-01-30 08:59 | XMS_ITS | Clinical Summary ---
Author Organization [facility] Address [address] [place] [address] Phone Care Team Providers Care Steam Table Worker Name Role Phone Nurys Doyle MD Primary Care Provider [phone] Allergies No known active allergies Medications atorvastatin [...] 74 05/28/2024 10:07 AM EST Temperature 36.8 C (98.3 F) 05/28/2024 10:07 AM EST Respiratory Rate - - Oxygen Saturation 99% [...] Description 06/03/2025 10:00 AM EST Office Visit [facility] Hematology Oncology [address] [place] [id number] Mary Ware DO [address] [place] [address] Health Maintenance Due Date Last Done Comments [...] Panel) 06/17/2022 Colorectal Cancer Screening: Colonoscopy 06/17/2022 Diabetes: Annual Urine Albumin-Creatinine Ratio (uACR) 06/17/2022 Diabetes: Blood Sugar Control Test (HGBA1C) 06/17/2022 Falls Risk Assessment 06/17/2022 Hepatitis C Screening 06/17/2022 Medicare Annual Wellness Visit 06/17/2022 Social Influencers of Health Screening 06/17/2022 COVID-19 Vaccine ( season) 2024 04/30/2023, 05/17/2022, 07/23/2021, Additional history exists Depression Screening 07/11/2024 Influenza Vaccine (#1) 2025 , 04/29/2022, 03/27/2021, Additional history exists Diabetes: [...] left kidney, except renal pelvis (CMS/HCC V24, CMS/HCC V28) from Last 3 Months or Most Recently Relevant to Health Maintenance Results * Comprehensive metabolic panel (05/17/2024 9:56 AM EST) Sodium 134 133 - 145 mmol/L LAB CHEMISTRY METHOD 05/17/2024 11:27 AM [facility] Potassium 4.8 3.5 - 5.5 mmol/L LAB CHEMISTRY METHOD 05/17/2024 11:27 AM [facility] Chloride 104 96 - 110 mmol/L LAB CHEMISTRY METHOD 05/17/2024 11:27 AM [facility] CO2 26 21 - 32 mmol/L LAB CHEMISTRY METHOD 05/17/2024 11:27 AM [facility] Anion Gap 4 3 - 11 LAB CHEMISTRY METHOD 05/17/2024 11:27 AM [facility] Glucose 96 70 - 100 mg/dL LAB CHEMISTRY METHOD 05/17/2024 11:27 AM [facility] BUN 17 5 - 25 mg/dL LAB CHEMISTRY METHOD 05/17/2024 11:27 AM [facility] Creatinine 1.06 0.70 - 1.30 mg/dL LAB CHEMISTRY METHOD 05/17/2024 11:27 AM [facility] eGFR 76 >=60 mL/min/1. 73m2 LAB CHEMISTRY METHOD 05/17/2024 11:27 AM [facility] Comment:Calculation based on the Chronic Kidney Disease Epidemiology Collaboration (CKD-EPI) equation refit without adjustment for race. BUN/Creatinine Ratio 16.0 LAB CHEMISTRY METHOD 05/17/2024 11:27 AM [facility] Calcium 9.7 8.5 - 10.5 mg/dL LAB CHEMISTRY METHOD 05/17/2024 11:27 AM [facility] AST (SGOT) 24 10 - 42 unit/L LAB CHEMISTRY METHOD 05/17/2024 11:27 AM [facility] ALT (SGPT) 36 10 - 60 unit/L LAB CHEMISTRY METHOD 05/17/2024 11:27 AM EST [facility] Alkaline Phosphatase 62 42 - 121 unit/L LAB CHEMISTRY METHOD 05/17/2024 11:27 AM [facility] Total Protein 6.9 6.0 - 8.0 g/dL LAB CHEMISTRY METHOD 05/17/2024 11:27 AM EST [facility] Albumin 3.8 3.2 - 5.0 g/dL LAB CHEMISTRY METHOD 05/17/2024 11:27 AM [facility] Total Bilirubin 0.5 0.0 - 1.4 mg/dL LAB CHEMISTRY METHOD 05/17/2024 11:27 AM [facility] Blood Venous blood specimen / Unknown Venipuncture / Unknown 05/17/2024 9:56 AM EST 05/17/2024 11:07 AM EST us Mary Ware DO LAB BLOOD ORDERABLES Final Result [facility] [address] [place] [address], from Last 3 Months or Most Recently Relevant to Health Maintenance Insurance MEDICARE [facility] Care Teams Steam Table Worker Relationship Specialty Start Date End Date Nurys Doyle MD PCP - General Internal Medicine 02/29/24
[2025-01-30 11:21] LABS: MANUAL DIFF FLAG NO
[2025-01-30 11:25] LABS: Hematocrit 40.7 % (42.0-52.0); Hemoglobin 13.8 g/dl (14.0-18.0); Imm Gran Abs Auto 0.01 X10*3/uL (0.00-0.03); Imm Gran Pct Auto 0.2 % (0.0-0.4); Lymphocytes Absolute Auto 1.7 X10*3/uL (1.2-4.9); Mean Corpuscular HGB Conc 33.9 g/dl (31.0-36.0); Mean Corpuscular Hemoglobin 31.0 pg (27.0-33.0); Mean Corpuscular Volume 91.5 fL (80.0-98.0); NRBC Abs Auto 0.000 X10*3/uL (0.0-0.012); NRBC Pct Auto 0.0 /100WBC (0.0-0.2); Platelet Count 222 X10*3/uL (160-400); Red Blood Count 4.45 X10*6/uL (4.60-5.80); White Blood Count 5.0 X10*3/uL (4.8-10.8)
[2025-01-30 11:35] LABS: Hemoglobin A1C 147.0410 umol/L; Total Hemoglobin (HGBA1C) 3627.4973 umol/L
[2025-01-30 11:56] LABS: Microalbum/Creatinine Ratio Ur 7.8 ug/mg cr (<30)
[2025-01-30 11:58] LABS: Alanine Aminotransferase 37 U/L (0-40); Albumin Level 4.4 g/dL (3.5-5.0); Alkaline Phosphatase 58 U/L (39-117); Anion Gap 11 (12-20); Aspartate Amino Transferase 31 U/L (5-37); Blood Urea Nitrogen 17 mg/dL (9-16); Calcium 9.3 mg/dL (8.4-10.2); Carbon Dioxide 25 mmol/L (22-29); Chloride 105 mmol/L (96-108); Cholesterol 135 mg/dL (<200); Estimated Glomerular Filt Rate > 60; HDL Cholesterol 29 mg/dL (>40); Potassium 4.4 mmol/L (3.3-5.1); Sodium 137 mmol/L (135-145); Total Protein 6.8 g/dL (6.5-8.0); Triglycerides 127 mg/dL (<150)
== END 2025-01-30 08:44 | disposition home or self-care (01) ==
LOC: HO.WFDLDS 08:43
PROVIDERS: Visit Provider Physician Assistant
DX: Z01.89 Encounter for other specified special examinations (principal); E11.40 Type 2 diabetes mellitus with diabetic neuropathy, unspecified; E78.5 Hyperlipidemia, unspecified; I10 Essential (primary) hypertension; M54.50 Low back pain, unspecified; M79.605 Pain in left leg; M79.604 Pain in right leg
CPT/HCPCS: 36415; 80053; 80061; 82043; 82570; 83036; 84153; 84443; 85025

== ENCOUNTER 2025-02-06 08:26 | Outpatient (AMB) | payer MEDICARE, OTHER, SELFPAY ==
--- NOTE | 2025-02-06 08:32 | A.OFFPC_ITS ---
Vital Signs 02/06/25 08:34 Height 5 ft 11.65 in Weight 287 lb 2 oz BMI 39.3 BP 102/64 Blood Pressure Location Lt brachial Position Sitting Respiration 16 Pulse 81 Pulse Source Pulse Oximeter Pulse Oximetry (%) 98 Oxygen Delivery Method Room Air Intake Visit Reasons: 3 Months Intake Note: THree month follow up. Stopped Gabapentin about 2 months ago after weaning himself off. City Driver Required: No Accompanied by: Spouse Allergies No Known Allergies Allergy (Verified 02/06/25 08:32) Medication List - Last Reconciled 02/06/25 by Shahana Rosado PA-C atorvastatin 40 mg PO DAILY blood sugar diagnostic (FreeStyle Lite Strips) use daily As directed to check blood sugars for diabetes blood-glucose,education courses sales representative,cont (FreeStyle Kathleen 3 [place]) Use daily As directed to monitor type 2 diabetes lancets (FreeStyle Lancets) Use daily As directed to check blood sugar lidocaine 5% 1 patch topical DAILY 30 days lisinopril 10 mg PO DAILY semaglutide (Ozempic) 2 mg (0.75 mL) subcut QWEEK Tobacco use date assessed: 02/06/25 Dental Screening Dental Screen Date: 02/06/25 Did you have a dental visit in the last 12 months?: No Did you have a dental problem in the last 6 months where you did not have access to dental care?: No Was dental information given to patient?: Patient has dentist HPI 3 Months HPI Details Patient is a 69-year-old male who presents today for a follow up. Endo: His A1c is 5.9. Ozempic 2 mg weekly. Since stopping gabapentin he has noticed improvements with his weight. CV: No chest pain or shortness a breath. Blood pressure today in the office is 102/64. Compliant with lisinopril 10 mg. He is on atorvastatin 40 mg. Musculoskeletal: Back pain is still present. He really does not want to take any pain medications. He is following up with [facility] sports medicine and states that he is going to bring up a possible cortisone injection at their three-month appointment. He has not yet tried this. He did follow with Neurosurgery who recommended that he tries conservative management 1st. ID: He did follow with Infectious Disease for the Lyme and was told that it was fully treated however he obviously still has lingering effects from the Lyme. Vascular: Dr. Alvarez saw him and was told no more eliquis. States that the DVT has resolved. Onc/heme: Follows with Dr. Ware from [facility]. Up-to-date CT abdomen and pelvis. He does have a partial left nephrectomy as expected. He was also noted to have renal cysts. Last year he had a thyroid nodule which was noted on CT of the ultrasound did show that the thyroid nodule did not require any additional follow up. Urololgy: Following with Urology for the renal cysts. colonoscopy: at [facility] in 2023- on ten year plan [facility] Medical History (Updated 02/06/25 @ 10:43 by Shahana Rosado PA-C) Thyroid nodule Severe obesity Right inguinal hernia Newly diagnosed diabetes Multiple nodules of lung History of malignant neoplasm History of malignant neoplasm of kidney Former smoker Change in bowel habit KATHIA on CPAP Type 2 diabetes, controlled, with neuropathy Dyslipidemia HTN (hypertension) Surgical History Hx of hernia repair H/O colonoscopy Social History (Updated 02/06/25 @ 08:38 by Marie Robles CMA) Housing: House Alcohol intake: current Patient Tobacco Use Status: Former Tobacco user Cigarette Packs Per Day: 2 Years Smoked: 40 e-Cigarette/Vaping Use: Never Used service: Yes Current occupational status: retired Cognitive needs: No Hearing needs: Yes (partial hearing loss, tinnitus) Vision needs: No Questionnaire Thrive Questionnaire Date Thrive assessed: 08/02/24 I am a: Patient What is your living situation today?: I have a steady place to live Within the past 12 months, did the food you bought not last and you didn't have the money to get more?: Never true Within the past 12 months, did you worry whether your food would run out before you got money to buy more?: Never true Do you have trouble paying for medicines?: No Do you have trouble getting transportation to medical appointments?: No Do you have trouble paying your heating and electricity bill?: No Do you have trouble taking care of your child, family member or friend?: No Do you have trouble with day-to-day activities such as bathing, preparing meals, shopping, managing finances, etc.?: No Are you currently unemployed and looking for a job?: No Are you interested in more education?: No Please select the resources that you would like help with: None Currently or been in a relationship where the following occur: No concerns reported THRIVE Score: 0 AUDIT C Alcohol Use Questionnaire (AUDIT-C) 1. How often do you have a drink containing alcohol?: Monthly or less 2. How many drinks containing alcohol do you have on a typical day when you are drinking?: 1 or 2 3. How often do you have six or more drinks on one occasion?: Never Total Score: 1 ALYTON-7 AMB Questionnaire LAYTON-7 Date LAYTON - 7 assessed: 11/01/24 Source: Developed by Drs. Garrett Marino, Tayla Gallegos, Kirt Rodrigues and colleagues, with an educational diana from [employer]. Physical exam (Primary Care) Vital Signs: Last Vital Signs Pulse 81 02/06/25 08:34 Resp 16 02/06/25 08:34 BP 102/64 02/06/25 08:34 Pulse Ox 98 02/06/25 08:34 Oxygen Delivery Method Room Air 02/06/25 08:34 BMI result Body Mass Index 39.3 Tobacco/Smoking Status: Tobacco use Status Tobacco use date assessed 02/06/25 02/06/25 08:38 Patient Tobacco Use Status Former Tobacco user 02/06/25 08:38 e-Cigarette/Vaping Use Never Used 02/06/25 08:38 Thrive Assessment: Date of Thrive Assessment Date Thrive assessed 08/02/24 02/06/25 08:38 Currently or been in a relationship where the following occur: No concerns reported Const Orientation/consciousness: patient oriented x3 HENMT Ears: hearing grossly normal bilaterally Neck Thyroid: Thyroid normal Lymphatic: no lymphadenopathy noted Resp Auscultation: clear to auscultation bilaterally Cardio Rate: regular rate Rhythm: regular rhythm Heart sounds: S1 normal heart sound present and S2 normal heart sound present GI Inspection: Yes normal to inspection Palpation (GI): Soft to palpation and Other GI palpation findings present (nontender, no cva tenderness) Auscultation: normoactive bowel sounds Rectal Exam - Male: Yes deferred Skin General skin exam: no rashes or lesions noted Neuro General: patient oriented x3, gait normal and no focal motor deficits Results Reviewed Results Reviewed: Laboratory Tests 08/02/24 09:02 Creatinine 0.94 Estimated GFR > 60 Fasting Glucose 97 Estimat Average Glucose 123 Hemoglobin A1c % 5.9 Triglycerides 114 Cholesterol 133 LDL Cholesterol, Calc 83 HDL Cholesterol 28 L Coding Level of Care Code Est Pt Level 4 (28271) Complex EM visit Add On G2211 Diagnoses Type 2 diabetes, controlled, with neuropathy E11.40 Primary hypertension I10 Hypertension type: primary hypertension Dyslipidemia E78.5 Lumbar pain with radiation down both legs M54.50; M79.604; M79.605 Assessment & Plan Assessment & Plan (1) Type 2 diabetes, controlled, with neuropathy: Code(s): E11.40 - Type 2 diabetes mellitus with diabetic neuropathy, unspecified Category: Medical Plan: Continue current regimen (2) HTN (hypertension): Code(s): I10 - Essential (primary) hypertension Category: Medical Qualifiers: Hypertension type: primary hypertension Qualified Code(s): I10 - Essential (primary) hypertension Plan: WNL. Continue current regimen (3) Dyslipidemia: Code(s): E78.5 - Hyperlipidemia, unspecified Category: Medical Plan: As above (4) Lumbar pain with radiation down both legs: Code(s): M54.50 - Low back pain, unspecified; M79.604 - Pain in right leg; M79.605 - Pain in left leg Category: Medical Plan: He will let me know if he tries the cortisone injection or if he wishes to try something for his back pain. Medications: New blood-glucose sensor (FreeStyle Kathleen 3 Plus Sensor device) Use daily As directed to monitor glucose 2 ea 5RF E11.40 - Type 2 diabetes mellitus with diabetic neuropathy, unspecified
[2025-02-06 08:34] VITALS: BP 102/64; PULSE 81; RESP 16; O2SAT 98; BMI 39.3
--- OUTSIDE RECORDS SUMMARY | 2025-02-06 08:38 | XMS_ITS ---
Author Name [place] Organization Unknown Care Team Organization Name Specialty Phone Email Start Date End Da te [facility] Jose Uriostegui Primary Care 05/18/2022 024
--- OUTSIDE RECORDS SUMMARY | 2025-02-06 08:38 | XMS_ITS | Clinical Summary ---
Author Organization [facility] Address [address] [place] [address] Phone Care Team Providers Care Link Wire Fabric Machine Operator Name Role Phone Nurys Doyle MD Primary Care Provider [phone] Allergies No known active allergies Medications atorvastatin [...] Description 06/03/2025 10:00 AM EST Office Visit [facility] Hematology Oncology [address] [place] [phone] Mary Ware DO [address] [place] [address] Health Maintenance Due Date Last Done Comments [...] mmol/L LAB CHEMISTRY METHOD 05/17/2024 11:27 AM [facility] Potassium 4.8 3.5 - 5.5 mmol/L LAB CHEMISTRY METHOD 05/17/2024 11:27 AM [facility] Chloride 104 96 - 110 mmol/L LAB CHEMISTRY METHOD 05/17/2024 11:27 AM [facility] CO2 26 21 - 32 mmol/L LAB CHEMISTRY METHOD 05/17/2024 11:27 AM [facility] Anion Gap 4 3 - 11 LAB CHEMISTRY METHOD 05/17/2024 11:27 AM [facility] Glucose 96 70 - 100 mg/dL LAB CHEMISTRY METHOD 05/17/2024 11:27 AM [facility] BUN 17 5 - 25 mg/dL LAB CHEMISTRY METHOD 05/17/2024 11:27 AM [facility] Creatinine 1.06 0.70 - 1.30 mg/dL LAB CHEMISTRY METHOD 05/17/2024 11:27 AM [facility] eGFR 76 >=60 mL/min/1. 73m2 LAB CHEMISTRY METHOD 05/17/2024 11:27 AM [facility] Comment:Calculation based on the Chronic Kidney Disease Epidemiology Collaboration (CKD-EPI) equation refit without adjustment for race. BUN/Creatinine Ratio 16.0 LAB CHEMISTRY METHOD 05/17/2024 11:27 AM [facility] Calcium 9.7 8.5 - 10.5 mg/dL LAB CHEMISTRY METHOD 05/17/2024 11:27 AM [facility] AST (SGOT) 24 10 - 42 unit/L LAB CHEMISTRY METHOD 05/17/2024 11:27 AM [facility] ALT (SGPT) 36 10 - 60 unit/L LAB CHEMISTRY METHOD 05/17/2024 11:[address] [facility] Alkaline Phosphatase 62 42 - 121 unit/L LAB CHEMISTRY METHOD 05/17/2024 11:27 AM [facility] Total Protein 6.9 6.0 - 8.0 g/dL LAB CHEMISTRY METHOD 05/17/2024 11:[address] [facility] Albumin 3.8 3.2 - 5.0 g/dL LAB CHEMISTRY METHOD 05/17/2024 11:27 AM [facility] Total Bilirubin 0.5 0.0 - 1.4 mg/dL LAB CHEMISTRY METHOD 05/17/2024 11:27 AM [facility] Blood Venous blood specimen / Unknown Venipuncture / Unknown 05/17/2024 9:56 AM EST 05/17/2024 11:07 AM EST us Mary Ware DO LAB BLOOD ORDERABLES Final Result [facility] [address] [place] [address], from Last 3 Months or Most Recently Relevant to Health Maintenance Insurance MEDICARE [facility] Care Teams Link Wire Fabric Machine Operator Relationship Specialty Start Date End Date Nurys Doyle MD PCP - General Internal Medicine 02/29/24
--- OUTSIDE RECORDS SUMMARY | 2025-02-06 08:38 | XMS_ITS | Clinical Summary ---
Author Organization [facility] Address [address] [place] [address] Care Team Providers Care Grinder Mill Operator Name Role Phone Nurys Doyle MD Primary Care Provider [phone] Allergies No known active allergies Medications Medication [...] age to complete this topic Care Teams Grinder Mill Operator Relationship Specialty Start Date End Date Nurys Doyle MD PCP - General Internal Medicine 04/25/20
== END 2025-02-06 09:26 | disposition home or self-care (01) ==
LOC: HO.HMCFM 08:27
PROVIDERS: PCP Physician Assistant; Visit Provider Physician Assistant
DX: E11.40 Type 2 diabetes mellitus with diabetic neuropathy, unspecified (principal); I10 Essential (primary) hypertension; E78.5 Hyperlipidemia, unspecified; M54.50 Low back pain, unspecified; M79.604 Pain in right leg; M79.605 Pain in left leg

== ENCOUNTER → 2025-02-06 08:26 | Outpatient (BNVA) | payer MEDICARE, OTHER, SELFPAY | PROVIDERS: PCP Physician Assistant; Visit Provider Physician Assistant | DX: E11.40 Type 2 diabetes mellitus with diabetic neuropathy, unspecified (principal); E78.5 Hyperlipidemia, unspecified; I10 Essential (primary) hypertension; M54.50 Low back pain, unspecified; M79.604 Pain in right leg; M79.605 Pain in left leg | CPT/HCPCS: 99212 ==

== ENCOUNTER 2025-04-26 11:15 | Outpatient (AMB) | payer MEDICARE, OTHER, SELFPAY ==
--- NOTE | 2025-04-26 11:30 | A.SPINEOV_ITS ---
Intake Visit Reasons: 6 months f/up Intake Note: Mr. Poole is here today for a 6 months F/u Criminal Investigator Customs Required: No Allergies No Known Allergies Allergy (Verified 02/06/25 08:32) Assessment & Plan Assessment & Plan (1) Scoliosis (and kyphoscoliosis), idiopathic: Code(s): M41.20 - Other idiopathic scoliosis, site unspecified Category: Medical Plan Mr Poole is here in follow-up. He seems to be stable, he is not needing to even take Tylenol for the pain in the low back. The foot weakness is mostly resolved, I tested him today it is about a 4/5. Again, his issue has been back pain and we have discussed the possibility of doing a scoliosis correction but right now the pain is not bad enough to justify it. He will follow-up down the road if the pain intensifies or affects his quality of life. Total amount of time spent in this visit was 20 minutes in discussion of symptoms, lumbar MRI and x-ray imaging results and subsequent plan of care Андрей Stout MD,PhD [facility] Coding Level of Care Code Est Pt Level 3 (00290) Diagnoses Scoliosis (and kyphoscoliosis), idiopathic M41.20
--- OUTSIDE RECORDS SUMMARY | 2025-04-26 14:03 | XMS_ITS | Clinical Summary ---
Author Organization [facility] Address [address] [place] [address] Phone Care Team Providers Care Route Manager Name Role Phone Nurys Doyle MD Primary Care Provider [phone] Allergies No known active allergies Medications atorvastatin [...] carcinoma (CMS/HCC V24, CMS/HCC V28) 04/20/2022 Immunizations Immunization Administration Dates Next Due Pfizer SARS-CoV-2 COVID-19, [...] Care Team (Late st Contact Info) Description 05/27/2025 9:45 AM EST Appointment [facility] CT Scan [address] [place] [address] 06/03/2025 10:00 AM EST Office Visit [facility] Hematology Oncology [address] [place] [address] Mary Ware, [address] [place] [address] Health Maintenance Due Date Last Done Comments Colorectal Cancer Screening: Colonoscopy 1955 Diabetes: Annual Foot Exam 09/12/1965 Diabetes: Annual Retina Eye Exam 09/12/1965 Zoster Vaccines (1 of 2) 09/12/1974 RSV Immunization Adult Patients (1 - Risk 50-74 years 1-dose series) 09/12/2005 Pneumococcal Vaccine: 50+ Years (2 of 2 - PCV) 10/29/2010 10/29/2009 DTaP,Tdap,and Td Vaccines (2 - Td or Tdap) 06/15/2021 06/15/2011 Abdominal Aortic Aneurysm (AAA) Screen 06/17/2022 Cholesterol Screening (Lipid Panel) 06/17/2022 Diabetes: Annual Urine Albumin-Creatinine Ratio (uACR) 06/17/2022 Diabetes: Blood Sugar Control Test (HGBA1C) 06/17/2022 Falls Risk Assessment 06/17/2022 Hepatitis C Screening 06/17/2022 Medicare Annual Wellness Visit 06/17/2022 Social Influencers of Health Screening 06/17/2022 Depression Screening 07/11/2024 COVID-19 Vaccine ( season) 2025 04/30/2023, 05/17/2022, 07/23/2021, Additional history exists Influenza Vaccine (#1) 2025 , 04/29/2022, 03/27/2021, [...] mmol/L LAB CHEMISTRY METHOD 05/17/2024 11:27 AM [facility] Potassium 4.8 3.5 - 5.5 mmol/L LAB CHEMISTRY METHOD 05/17/2024 11:27 AM [facility] Chloride 104 96 - 110 mmol/L LAB CHEMISTRY METHOD 05/17/2024 11:27 AM [facility] CO2 26 21 - 32 mmol/L LAB CHEMISTRY METHOD 05/17/2024 11:27 AM [facility] Anion Gap 4 3 - 11 LAB CHEMISTRY METHOD 05/17/2024 11:27 AM [facility] Glucose 96 70 - 100 mg/dL LAB CHEMISTRY METHOD 05/17/2024 11:27 AM [facility] BUN 17 5 - 25 mg/dL LAB CHEMISTRY METHOD 05/17/2024 11:27 AM [facility] Creatinine 1.06 0.70 - 1.30 mg/dL LAB CHEMISTRY METHOD 05/17/2024 11:27 AM [facility] eGFR 76 >=60 mL/min/1. 73m2 LAB CHEMISTRY METHOD 05/17/2024 11:27 AM [facility] Comment:Calculation based on the Chronic Kidney Disease Epidemiology Collaboration (CKD-EPI) equation refit without adjustment for race. BUN/Creatinine Ratio 16.0 LAB CHEMISTRY METHOD 05/17/2024 11:27 AM [facility] Calcium 9.7 8.5 - 10.5 mg/dL LAB CHEMISTRY METHOD 05/17/2024 11:27 AM [facility] AST (SGOT) 24 10 - 42 unit/L LAB CHEMISTRY METHOD 05/17/2024 11:27 AM [facility] ALT (SGPT) 36 10 - 60 unit/L LAB CHEMISTRY METHOD 05/17/2024 11:27 AM [facility] Alkaline Phosphatase 62 42 - 121 unit/L LAB CHEMISTRY METHOD 05/17/2024 11:27 AM [facility] Total Protein 6.9 6.0 - 8.0 g/dL LAB CHEMISTRY METHOD 05/17/2024 11:27 AM [facility] Albumin 3.8 3.2 - 5.0 g/dL LAB CHEMISTRY METHOD 05/17/2024 11:27 AM [facility] Total Bilirubin 0.5 0.0 - 1.4 mg/dL LAB CHEMISTRY METHOD 05/17/2024 11:27 AM [facility] Blood Venous blood specimen / Unknown Venipuncture / Unknown 05/17/2024 9:56 AM EST 05/17/2024 11:07 AM EST Mary Ware DO LAB BLOOD ORDERABLES Final Result [facility] [address] [place] [address], from Last 3 Months or Most Recently Relevant to Health Maintenance Insurance MEDICARE [facility] Care Teams Route Manager Relationship Specialty Start Date End Date Nurys Doyle MD PCP - General Internal Medicine 02/29/24
--- OUTSIDE RECORDS SUMMARY | 2025-04-26 14:03 | XMS_ITS | Clinical Summary ---
Author Organization [facility] Address [address] [place] [address] Care Team Providers Care Web Production Artist Name Role Phone Nurys Doyle MD Primary Care Provider [phone] Allergies No known active allergies Medications Medication [...] Tdap) 06/15/2021 06/15/2011 COVID-19 Vaccine ( season) 2025 07/23/2021, 06/11/2021, 10/30/2020, Additional history exists Influenza [...] age to complete this topic Care Teams Web Production Artist Relationship Specialty Start Date End Date Nurys Doyle MD PCP - General Internal Medicine 04/25/20
== END 2025-04-26 11:57 | disposition home or self-care (01) ==
LOC: HO.HNS 11:16
PROVIDERS: PCP Physician Assistant; Visit Provider Physician Assistant
DX: M41.20 Other idiopathic scoliosis, site unspecified (principal)
CPT/HCPCS: 99213

== ENCOUNTER → 2025-04-26 11:15 | Outpatient (BNVA) | payer MEDICARE, OTHER, SELFPAY | PROVIDERS: PCP Physician Assistant; Visit Provider Physician Assistant | DX: M41.20 Other idiopathic scoliosis, site unspecified (principal) | CPT/HCPCS: 99212 ==